=== PATIENT | male | born 1950 | race Caucasian/White ===

== ENCOUNTER 2024-10-10 21:59 | Inpatient (IN) ==
[~2024-10-10 21:59] MED LIST: ETOMIDATE 2 MG/ML 20 ML VIAL IV ONE; SUCCINYLCHOLINE CHLORIDE 20 MG/ML 10 ML VIAL IV ONE
[2024-10-10] MEDS: NITROGLYCERIN SL 0.4 MG/TAB TAB SL STA (22:15)
[2024-10-10 22:25] LABS: iSTAT Creatinine 1.8 mg/dl (0.6-1.3); iSTAT Hemoglobin 14.3 g/dl (14.0-18.0); iSTAT Ionized Calcium 1.19 mmol/l (1.12-1.32); iSTAT Potassium 4.1 mmol/L (3.3-5.0)
[2024-10-10] MEDS: NITROGLYCERIN SL 0.4 MG/TAB TAB ONE (22:28)
[2024-10-10 22:32] LABS: Base Excess VBG -7.4 mEq/L; HCO3 VBG 21 mmol/L; Oxygen Saturation VBG < 60.0 %; PCO2 VBG 52 mmHg (38-50); PO2 VBG 35 mmHg; pH VBG 7.21 (7.36-7.41)
--- NOTE | 2024-10-10 22:32 | Emergency Department Note ---
Impression & Plan ACS (acute coronary syndrome), Acute respiratory distress, Pulmonary edema, Leukocytosis, Acute hypoxic respiratory failure, Elevated troponin ED Provider Note HISTORY OF PRESENT ILLNESS: Patient is a 74-year-old male presenting with respiratory distress and chest pain. Patient reports they originally from [facility] and was in town visiting his grandson at [facility]. Patient reports that he started to develop substernal chest pain around 2044 this evening. He had taken 3 sublingual nitroglycerin and suddenly became very short of breath and had worsening of his chest pain and family called 911. Patient has a history of 5 vessel CABG. He is on aspirin and Plavix daily. He is currently complaining of chest pain on arrival to the ER. His saturations were in the 60s on EMS arrival, but patient did not tolerate BiPAP prehospital and started on a nonrebreather. Saturations of 60s on arrival to the ER. He was given sublingual nitro. EKG was obtained and HEART ALERT was called. ROS: as above PHYSICAL EXAM: Constitutional: Patient appears in significant distress. HENT: Head: Normocephalic and atraumatic. Eyes: EOMI, PERRL Mouth/Throat: Mucous membranes moist. Neck: Trachea midline. Neck supple. Cardiovascular: Tachycardic with regular rhythm. No murmurs, rubs or gallops. Intact distal pulses. Pulmonary/Chest: Significant respiratory distress. Conversationally dyspneic. Coarse breath sounds bilaterally with diffuse crackles. Patient saturating 65% on nonrebreather. Transition to BiPAP. Abdominal retractions noted. Abdominal: Abdomen soft, no tenderness, rebound or guarding. Musculoskeletal: No tenderness or deformity noted. +2 pitting edema bilateral lower extremities extending to the mid tibias. Skin: Warm and dry. No rash, erythema, pallor or cyanosis Psychiatric: Appropriate mood and affect for situation. Neurological: Alert and keenly responsive. CN II-XII grossly intact, moving all extremities equally and fully. MDM: - Vitals signs showed hypoxia, tachycardia and tachypnea. Patient was placed on the groundwater monitoring technician and defibrillation pads were placed, as he was noted to have a short run of ventricular tachycardia. - History obtained via EMS, given patient's respiratory distress. History as above. - Chronic conditions affecting care: HTN; CAD (S/p CABG) - Differential diagnoses include, but are not limited to: Acute coronary syndrome; pulmonary embolism; dissection; tension pneumothorax; esophageal rupture; pneumonia - Order placed for continuous cardiac monitoring. At this time, monitor showed rate of 145 bpm with normal sinus rhythm, per my interpretation. - External medical records reviewed. - EKG image interpreted by myself showed normal sinus rhythm. Rate 142 bpm. QT 266. Noted to have what looks like diffuse ischemic changes, notably with ST depressions in lead I and ST elevations in aVR. EKG is noted to have significant artifact secondary to patient's respiratory distress. - HEART alert called. Patient is still complaining of 10 out of 10 chest pain. He was given a sublingual nitro on arrival to the emergency department. Discussed case with ms access database developer, Dr. Lisa, at 22:10. He does not think this is a STEMI, but plans to come in to evaluate the patient. - Patient was transition to BiPAP on arrival immediately to the emergency department. However, he still having significant tachypnea and respiratory distress. Oxygen saturations improved from 60s to the upper 80s to low 90s. Did discuss patient's CODE STATUS with him and his who is present at bedside. They report that patient is full code and he would want to be intubated if the need arises. VBG shows respiratory acidosis with a pH of pH 7.21. - CXR image reported by myself shows pulmonary edema, per my interpretation. - Patient has started to tire out on the BiPAP given his significant abdominal retractions and respiratory distress. Discussed intubation with the patient, and he is requesting it, as he is stating he is getting very tired on the BiPAP. Rapid sequence intubation was performed using 20 mg of etomidate and 100 mg of IV succinylcholine. Please see procedure note below. - Post intubation chest x-ray image shows appropriate tube placement, per my interpretation. Patient is noted to have significant pulmonary edema and 80 mg IV Lasix ordered. Postintubation EKG image interpreted by myself showed atrial fibrillation. Noted to have profound ST depressions in leads I and II with elevations in aVR. Patient is noted to have some PVCs. - Laboratory workup interpreted by myself showed leukocytosis (WBC 23.59); stable electrolytes; CKD (Cr 1.70); elevated troponin (50.3) - Given patient's leukocytosis, procalcitonin, lactic acid and blood cultures were added to the workup. However, patient's symptoms seem more acute in etiology and less like sepsis. However, 2 g IV Rocephin ordered for empiric coverage. - Discussion was had with manager rn case about patient's case and need for admission - Hospitalist, Dr. Gil, consulted for admission post Arts And Crafts Instructor. - Patient was difficult to sedate post intubation. He required multiple propofol boluses a total of 50 mcg IV fentanyl. Patient was taken to the cardiac catheterization suite with interventional radiology and plan for admission to [facility] service in the ICU post Arts And Crafts Instructor. I have personally spent 62 minutes of critical care time in the direct management of this patient. This includes bedside care, interpretation of diagnostic studies, and testing, discussion with consultants, patient, and family members, and other required patient management activities. This 62 minutes is in excess of all separately billable procedures. PROCEDURE: Endotracheal Intubation Indication: respiratory distress. The patient was on BiPAP prior to the procedure. Suction, airway equipment, RSI drugs, respiratory equipment, and appropriate personnel were prepared prior to the initiation of the procedure. A time out was taken. Induction was performed with 20 mg etomidate. Paralysis with 100 mg IV succinylcholine. After observing the clinical benefit of the medications, the airway was easily visualized utilizing a glidescope. A 7.5 size ETT tube was placed atraumatically to 25 cm using standard technique. The cuff inflated without signs of malfunction. There were bilateral breath sounds, positive colormetric change, no gastric sounds, a good capnography waveform, and post procedure pulse oximetry was 95%. Post intubation sedation was administered using propofol. There were no complications. 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 Past Med/Surg History Problem List (Updated 10/10/24 @ 23:22 by John Lisa MD) ACS (acute coronary syndrome) Social History Smoking Status: Unknown if ever smoked Allergies Allergies Allergy/AdvReac Type Severity Reaction Status Date / Time iodine Allergy Hives Verified 10/10/24 22:22 Sulfa (Sulfonamide Allergy Hives Verified 10/10/24 22:22 Antibiotics) Home Meds Home Medications Medication Instructions Recorded Confirmed Plavix 75 mg PO DAILY 10/10/24 10/10/24 Urocit-K 15 10/10/24 aspirin 81 mg capsule 81 mg PO DAILY 10/10/24 10/10/24 atorvastatin 80 mg tablet 80 mg PO HS 10/10/24 10/10/24 famotidine 40 mg tablet 40 mg PO DAILY 10/10/24 10/10/24 folic acid 1 mg tablet 1 mg PO DAILY 10/10/24 10/10/24 furosemide 80 mg tablet (Lasix) 80 mg PO DAILY 10/10/24 10/10/24 insulin aspart U-100 100 unit/mL 15 unit subcut DAILY 10/10/24 10/10/24 (3 mL) subcutaneous pen (Novolog FlexPen U-100 Insulin aspart) insulin degludec 100 unit/mL (3 52 unit subcut DAILY 10/10/24 10/10/24 mL) subcutaneous pen (Tresiba FlexTouch U-100 insulin) isosorbide mononitrate 120 mg 120 mg PO DAILY 10/10/24 10/10/24 tablet,extended release 24 hr lisinopril 10 mg tablet 10 mg PO DAILY 10/10/24 10/10/24 magnesium oxide 400 mg PO DAILY 10/10/24 10/10/24 metoprolol succinate 100 mg 100 mg PO BID 10/10/24 10/10/24 tablet,extended release 24 hr nifedipine 60 mg tablet,extended 60 mg PO BID 10/10/24 10/10/24 release pantoprazole 40 mg tablet,delayed 40 mg PO DAILY 10/10/24 10/10/24 release tamsulosin 0.4 mg capsule 0.4 mg PO DAILY 10/10/24 10/10/24 Results & Data (ED) Vital Signs Vital Signs - 24 hr 10/10/24 22:01 10/10/24 22:03 10/10/24 22:09 Temperature Temperature Source Pulse Rate 129 H Pulse Rate [Finger] Pulse Rate from SpO2 Sensor Pulse Rhythm Pulse Rhythm [Finger] Pulse Strength Pulse Strength [Finger] Respiratory Rate Respiratory Effort / Characteristics Spontaneous Accessory Muscle Use Short of Breath Respiratory Pattern Tachypnea Blood Pressure 135/99 Blood Pressure [Right Arm] Blood Pressure Mean 116 Blood Pressure Mean [Right Arm] Blood Pressure Position Blood Pressure Position [Right Arm] Pulse Oximetry Oxygen Delivery Method BiPAP Sepsis Recent Fever Within 48 Hours Sepsis New/Unexplained Change in Mental Status Sepsis Action Taken by Nursing End-Tidal CO2 10/10/24 22:09 10/10/24 22:09 10/10/24 22:09 Temperature 35.7 C L Temperature Source Axillary Pulse Rate 128 H Pulse Rate [Finger] 134 H Pulse Rate from SpO2 Sensor Pulse Rhythm Regular Pulse Rhythm [Finger] Regular Pulse Strength Normal Pulse Strength [Finger] Normal Respiratory Rate 41 H 44 H Respiratory Effort / Characteristics Spontaneous Accessory Muscle Use Accessory Muscle Use Respiratory Pattern Tachypnea Blood Pressure 131/93 Blood Pressure [Right Arm] 131/93 Blood Pressure Mean 105 Blood Pressure Mean [Right Arm] 105 Blood Pressure Position Lying Blood Pressure Position [Right Arm] Lying Pulse Oximetry 86 L 88 L Oxygen Delivery Method BiPAP BiPAP BiPAP Sepsis Recent Fever Within 48 Hours No Sepsis New/Unexplained Change in Mental Status No Sepsis Action Taken by Nursing Physician Notified End-Tidal CO2 10/10/24 22:09 10/10/24 22:14 10/10/24 22:16 Temperature Temperature Source Pulse Rate 142 H 149 H 126 H Pulse Rate [Finger] Pulse Rate from SpO2 Sensor 141 H Pulse Rhythm Regular Pulse Rhythm [Finger] Pulse Strength Pulse Strength [Finger] Respiratory Rate 22 45 H Respiratory Effort / Characteristics Respiratory Pattern Blood Pressure Blood Pressure [Right Arm] Blood Pressure Mean Blood Pressure Mean [Right Arm] Blood Pressure Position Blood Pressure Position [Right Arm] Pulse Oximetry 85 L 91 Oxygen Delivery Method BiPAP Sepsis Recent Fever Within 48 Hours Sepsis New/Unexplained Change in Mental Status Sepsis Action Taken by Nursing End-Tidal CO2 10/10/24 22:16 10/10/24 22:16 10/10/24 22:21 Temperature Temperature Source Pulse Rate 128 H Pulse Rate [Finger] Pulse Rate from SpO2 Sensor 133 H Pulse Rhythm Pulse Rhythm [Finger] Pulse Strength Pulse Strength [Finger] Respiratory Rate 40 H Respiratory Effort / Characteristics Respiratory Pattern Blood Pressure 131/93 131/93 Blood Pressure [Right Arm] Blood Pressure Mean 96 96 Blood Pressure Mean [Right Arm] Blood Pressure Position Blood Pressure Position [Right Arm] Pulse Oximetry 89 L Oxygen Delivery Method Sepsis Recent Fever Within 48 Hours Sepsis New/Unexplained Change in Mental Status Sepsis Action Taken by Nursing End-Tidal CO2 10/10/24 22:23 10/10/24 22:30 10/10/24 22:33 Temperature Temperature Source Pulse Rate 114 H 134 H Pulse Rate [Finger] Pulse Rate from SpO2 Sensor 133 H Pulse Rhythm Pulse Rhythm [Finger] Pulse Strength Pulse Strength [Finger] Respiratory Rate 44 H Respiratory Effort / Characteristics Respiratory Pattern Blood Pressure 143/99 H Blood Pressure [Right Arm] Blood Pressure Mean 107 Blood Pressure Mean [Right Arm] Blood Pressure Position Blood Pressure Position [Right Arm] Pulse Oximetry 92 Oxygen Delivery Method Sepsis Recent Fever Within 48 Hours Sepsis New/Unexplained Change in Mental Status Sepsis Action Taken by Nursing End-Tidal CO2 10/10/24 22:40 10/10/24 22:40 10/10/24 22:40 Temperature Temperature Source Pulse Rate Pulse Rate [Finger] Pulse Rate from SpO2 Sensor Pulse Rhythm Pulse Rhythm [Finger] Pulse Strength Pulse Strength [Finger] Respiratory Rate Respiratory Effort / Characteristics Respiratory Pattern Blood Pressure 168/101 H 168/101 H 168/101 H Blood Pressure [Right Arm] Blood Pressure Mean 136 136 136 Blood Pressure Mean [Right Arm] Blood Pressure Position Blood Pressure Position [Right Arm] Pulse Oximetry Oxygen Delivery Method Sepsis Recent Fever Within 48 Hours Sepsis New/Unexplained Change in Mental Status Sepsis Action Taken by Nursing End-Tidal CO2 10/10/24 22:40 10/10/24 22:42 10/10/24 23:00 Temperature Temperature Source Pulse Rate 126 H Pulse Rate [Finger] Pulse Rate from SpO2 Sensor 125 H Pulse Rhythm Pulse Rhythm [Finger] Pulse Strength Pulse Strength [Finger] Respiratory Rate 19 Respiratory Effort / Characteristics Respiratory Pattern Blood Pressure 168/101 H 120/77 Blood Pressure [Right Arm] Blood Pressure Mean 136 95 Blood Pressure Mean [Right Arm] Blood Pressure Position Blood Pressure Position [Right Arm] Pulse Oximetry 94 Oxygen Delivery Method Sepsis Recent Fever Within 48 Hours Sepsis New/Unexplained Change in Mental Status Sepsis Action Taken by Nursing End-Tidal CO2 10/10/24 23:00 10/10/24 23:00 Temperature Temperature Source Pulse Rate 117 H Pulse Rate [Finger] Pulse Rate from SpO2 Sensor 121 H Pulse Rhythm Pulse Rhythm [Finger] Pulse Strength Pulse Strength [Finger] Respiratory Rate 30 H Respiratory Effort / Characteristics Respiratory Pattern Blood Pressure 120/77 Blood Pressure [Right Arm] Blood Pressure Mean 95 Blood Pressure Mean [Right Arm] Blood Pressure Position Blood Pressure Position [Right Arm] Pulse Oximetry 98 Oxygen Delivery Method Sepsis Recent Fever Within 48 Hours Sepsis New/Unexplained Change in Mental Status Sepsis Action Taken by Nursing End-Tidal CO2 26 Laboratory Data 10/10/24 22:06 10/10/24 22:06 Lab Results 10/10/24 10/10/24 Range/Units 22:06 22:14 WBC 23.59 H (4.8-10.8) K/ul RBC 4.51 L (4.70-6.10) M/uL Hgb 13.1 L (14.0-18.0) g/dl POC Hgb 14.3 (14.0-18.0) g/dl Hct 41.3 L (42.0-52.0) % POC Hct 42 (42-52) % MCV 91.6 (80.0-100.0) fL MCH 29.0 (25.0-34.0) pg MCHC 31.7 L (32.0-36.0) g/dL RDW Std Deviation 51.4 H (36.4-46.3) fL RDW Coeff of Jose 15.8 H (11.5-14.5) % Plt Count 285 (130-400) K/uL MPV 11.0 (9.4-12.4) fL Immature Gran % (Auto) 1.1 % Neut % (Auto) 64.6 % Lymph % (Auto) 22.1 % [place] % (Auto) 7.4 % Eos % (Auto) 4.1 % Baso % (Auto) 0.7 % Neut # (Auto) 15.26 H (1.40-6.50) K/uL Lymph # (Auto) 5.21 H (1.20-3.40) K/uL [place] # (Auto) 1.74 H (0.11-0.59) K/uL Eos # (Auto) 0.96 H (0.00-0.50) K/uL Baso # (Auto) 0.16 (0.00-0.20) K/uL Immature Gran # (Auto) 0.26 H (0.01-0.20) K/uL VBG pH 7.21 L (7.36-7.41) VBG pCO2 52 H (38-50) mmHg VBG pO2 35 mmHg VBG HCO3 21 mmol/L VBG O2 Saturation < 60.0 % VBG Base Excess -7.4 mEq/L POC Sodium 145 H (135-144) mmol/L Sodium 141 (136-145) mmol/L POC Potassium 4.1 (3.3-5.0) mmol/L Potassium 4.0 (3.5-5.1) mmol/L POC Chloride 110 (101-112) mmol/L Chloride 108 H (98-107) mmol/L Carbon Dioxide 22 (21-32) mmol/L POC Total CO2 20 L (24-31) mmol/L Anion Gap 11 (3-11) POC Anion Gap 20.0 (16-25) mmol/L POC BUN 45 H (7-18) mg/dl BUN 45 H (6-23) mg/dl Creatinine 1.70 H (0.6-1.4) mg/dl POC Creatinine 1.8 H (0.6-1.3) mg/dl Est Cr Clr Drug Dosing 44.3 ml/min eGFR 41.26 BUN/Creatinine Ratio 26.5 H (10-20) Glucose 216 H (70-99(Fasting)) mg/dl POC Glucose (other) 219 H (70-99) mg/dl Calcium 9.1 (8.6-10.3) mg/dl POC Ioniz Calcium Codey 1.19 (1.12-1.32) mmol/l Magnesium 1.9 (1.7-2.4) mg/dl Total Bilirubin 1.1 H (0.2-1.0) mg/dl AST 23 (13-39) U/L ALT 27 (7-52) U/L Alkaline Phosphatase 148 H (34-104) U/L Troponin I High Sens 50.3 H* (0-20) pg/ml Total Protein 8.9 H (6.0-8.3) gm/dl Albumin 4.5 (3.4-5.0) gm/dl Globulin 4.4 H (2.5-4.0) gm/dl Albumin/Globulin Ratio 1.0 (0.9-2) Lipase 44 (11-82) U/L Administered Medications Propofol (Diprivan) 1,000 mg in 100 mls @ 11.436 mls/hr IV .[id number] [facility]; Protocol Stop: 10/13/24 22:59 Last Titration: 10/10/24 23:02 Dose: 25 mcg/kg/min, 14.3 mls/hr Documented By: Titration: 10/10/24 22:46 Dose: 15 mcg/kg/min, 8.6 mls/hr Documented By: Admin: 10/10/24 22:42 Dose: 5 mcg/kg/min, 2.9 mls/hr Documented By: KALPANA Co-signed By: VONNIE Propofol (Propofol Bolus From Bag) 20 mg IV Q5M PRN PRN Reason: Sedation Stop: 10/13/24 22:54 Last Admin: 10/10/24 23:06 Dose: 20 mg Documented By: KALPANA Co-signed By: VONNIE Admin: 10/10/24 22:58 Dose: 20 mg Documented By: PAG Co-signed By: VONNIE Discontinued Medications Etomidate (Etomidate 2 Mg/Ml 20 Ml Vial) 20 mg IV ONCE ONE Stop: 10/10/24 22:43 Last Admin: 10/10/24 22:43 Dose: 20 mg Documented By: KALPANA Fentanyl Citrate (Fentanyl Citrate Pf 100 Mcg/2 Ml Vial) Confirm Administered Dose 100 mcg .ROUTE .STK-MED ONE Stop: 10/10/24 22:37 Last Increment: 10/10/24 23:07 Dose: 25 mcg Documented By: KALPANA Increment: 10/10/24 23:05 Dose: 25 mcg Documented By: KALPANA Furosemide (Furosemide 40 Mg/4 Ml Vial) 80 mg IV ONE ONE Stop: 10/10/24 22:56 Last Admin: 10/10/24 22:55 Dose: 80 mg Documented By: KALPANA Nitroglycerin (Nitroglycerin Sl 0.4 Mg/Tab Tab) Confirm Administered Dose 0.4 mg .ROUTE .STK-MED ONE Stop: 10/10/24 22:14 Last Admin: 10/10/24 22:28 Dose: Not Given Documented By: KALPANA Nitroglycerin (Nitroglycerin Sl 0.4 Mg/Tab Tab) 0.4 mg SL NOW STA Stop: 10/10/24 22:15 Last Admin: 10/10/24 22:15 Dose: 0.4 mg Documented By: KALPANA Succinylcholine Chloride (Succinylcholine Chloride 20 Mg/Ml 10 Ml Vial) 100 mg IV ONCE ONE Stop: 10/10/24 22:45 Last Admin: 10/10/24 22:45 Dose: 100 mg Documented By: KALPANA Co-signed By: VONNIE Discharge Plan Visit Data Chief Complaint: Respiratory Distress Stated Complaint: RESP. DISTRESS ED Provider: Ellie Lovelace Discharge Problem: ACS (acute coronary syndrome), Acute respiratory distress, Pulmonary edema, Leukocytosis, Acute hypoxic respiratory failure, Elevated troponin Forms Stand Alone Forms: [facility] Prescriptions Prescriptions: No Action atorvastatin 80 mg Tablet 80 mg PO HS famotidine 40 mg Tablet 40 mg PO DAILY metoprolol succinate 100 mg Tablet Extended Release 24 Hr 100 mg PO BID isosorbide mononitrate 120 mg Tablet Extended Release 24 Hr 120 mg PO DAILY tamsulosin 0.4 mg Capsule 0.4 mg PO DAILY furosemide [Lasix] 80 mg Tablet 80 mg PO DAILY pantoprazole 40 mg Tablet,Delayed Release (Dr/Ec) 40 mg PO DAILY lisinopril 10 mg Tablet 10 mg PO DAILY folic acid 1 mg Tablet 1 mg PO DAILY nifedipine 60 mg Tablet Extended Release 60 mg PO BID insulin aspart U-100 [Novolog FlexPen U-100 Insulin] 100 unit/mL (3 mL) Insulin Pen 15 unit SUBCUT DAILY insulin degludec [Tresiba FlexTouch U-100] 100 unit/mL (3 mL) Insulin Pen 52 unit SUBCUT DAILY magnesium oxide 400 mg magnesium Tablet 400 mg PO DAILY aspirin 81 mg Capsule 81 mg PO DAILY Plavix 75 mg PO DAILY Urocit-K 15 Referrals Referrals: THO MARTIN [Other]
[2024-10-10 22:36] LABS: Hematocrit (blood only) 41.3 % (42.0-52.0); Hemoglobin 13.1 g/dl (14.0-18.0); Mean Corpuscular Hgb Conc 31.7 g/dL (32.0-36.0); Mean Corpuscular Volume 91.6 fL (80.0-100.0); Platelet Count 285 K/uL (130-400); RDW Coefficient of Variation 15.8 % (11.5-14.5); RDW Standard Deviation 51.4 fL (36.4-46.3); Red Blood Count 4.51 M/uL (4.70-6.10); White Blood Count 23.59 K/ul (4.8-10.8)
[2024-10-10] MEDS: propofoL 1,000 MG/100 ML VIAL IV SCH (22:42)
[2024-10-10] MEDS: ETOMIDATE 2 MG/ML 20 ML VIAL IV ONE (22:43)
[2024-10-10] MEDS: SUCCINYLCHOLINE CHLORIDE 20 MG/ML 10 ML VIAL IV ONE (22:45)
[2024-10-10 22:52] LABS: Basophils # (auto) 0.16 K/uL (0.00-0.20); Basophils % (auto) 0.7 %; Eosinophils # (auto) 0.96 K/uL (0.00-0.50); Eosinophils % (auto) 4.1 %; Immature Granulocytes # (auto) 0.26 K/uL (0.01-0.20); Immature Granulocytes % (auto) 1.1 %; Lymphocytes # (auto) 5.21 K/uL (1.20-3.40); Lymphocytes % (auto) 22.1 %; Monocytes # (auto) 1.74 K/uL (0.11-0.59); Monocytes % (auto) 7.4 %; Neutrophils # (auto) 15.26 K/uL (1.40-6.50); Neutrophils % (auto) 64.6 %
[2024-10-10 22:53] LABS: Albumin Level 4.5 gm/dl (3.4-5.0); BUN Creatinine Ratio 26.5 (10-20); Bilirubin,Total 1.1 mg/dl (0.2-1.0); Calcium 9.1 mg/dl (8.6-10.3); Creatinine Clr Calc Pharmacy 44.3 ml/min; Globulin 4.4 gm/dl (2.5-4.0); Magnesium 1.9 mg/dl (1.7-2.4); Total Protein 8.9 gm/dl (6.0-8.3)
[2024-10-10] MEDS: FUROSEMIDE 40 MG/4 ML VIAL IV ONE (22:55)
[2024-10-10] MEDS: PROPOFOL BOLUS FROM BAG IV PRN (22:58)
[2024-10-10 23:04] LABS: Troponin I High Sensitivity 50.3 pg/ml (0-20)
[2024-10-10] MEDS: fentaNYL citrate PF 100 MCG/2 ML VIAL ONE ×2 (23:05→23:58)
--- NOTE | 2024-10-10 23:11 | Pre Anesthesia Assessment ---
Date of Service October 10, 2024 Pre Sedation Assessment Vital Signs Temp Pulse Pulse Resp BP BP Pulse Ox 10/10/24 23:00 117 H 30 H 98 10/10/24 23:00 120/77 10/10/24 23:00 120/77 10/10/24 22:42 126 H 19 94 10/10/24 22:40 168/101 H 10/10/24 22:40 168/101 H 10/10/24 22:40 168/101 H 10/10/24 22:40 168/101 H 10/10/24 22:33 134 H 44 H 92 10/10/24 22:30 143/99 H 10/10/24 22:23 114 H 10/10/24 22:21 128 H 40 H 89 L 10/10/24 22:16 131/93 10/10/24 22:16 131/93 10/10/24 22:16 126 H 10/10/24 22:14 149 H 45 H 91 10/10/24 22:09 142 H 22 85 L 10/10/24 22:09 134 H 44 H 131/93 88 L 10/10/24 22:09 10/10/24 22:09 96.3 F L 128 H 41 H 131/93 86 L 10/10/24 22:09 10/10/24 22:03 129 H 10/10/24 22:01 135/99 O2 Del Method 10/10/24 23:00 10/10/24 23:00 10/10/24 23:00 10/10/24 22:42 10/10/24 22:40 10/10/24 22:40 10/10/24 22:40 10/10/24 22:40 10/10/24 22:33 10/10/24 22:30 10/10/24 22:23 10/10/24 22:21 10/10/24 22:16 10/10/24 22:16 10/10/24 22:16 10/10/24 22:14 BiPAP 10/10/24 22:09 10/10/24 22:09 BiPAP 10/10/24 22:09 BiPAP 10/10/24 22:09 BiPAP 10/10/24 22:09 BiPAP 10/10/24 22:03 10/10/24 22:01 Cardiovascular + tachycardic and + irregularly irregular Respiratory + respiratory distress Pre-Sedation Airway Assessment Smoking Status: Unknown if ever smoked Hx Difficult Intubation: No Short, Thick Neck: No Thyromental Distance: > or= 3.5 Finger Breadths Oral Cavity: + Dental Abnormalities Mallampati Class: III ASA: ASA4 Procedure Planning Contraindications for Sedation: none Current Medications Reviewed: Yes Notes The planned sedation has been discussed with the patient. Informed Consent was obtained. I have identified the patient, determined the appropriateness of sedation and have assessed the patient immediately prior to the procedure. All medicine(s) and interventions are by my order.
--- NOTE | 2024-10-10 23:18 | Cardiology Consultation ---
Date of Consultation October 10, 2024 Assessment & Plan (1) ACS (acute coronary syndrome): Presentation concerning for high risk ACS and recommend proceeding with urgent cardiac catheterization and possible PCI. Discussed risks, benefits, alternatives of procedure with his family and they are willing to proceed. Further recommendations pending findings of coronary angiography. History of Present Illness History of Present Illness Mr. Gonzalez is a 74-year-old man here with acute chest pain, respiratory distress and ECG concerning for ACS. Patient seen emergently in the ED after heart alert activated. Patient lives in [facility], here today with his visiting his grandson ([employer] student). Per his history of coronary artery disease post 5 vessel CABG maybe 20 years ago. Also underwent valve replacement redo sternotomy around 7 years ago. Other history includes type 2 diabetes, hypertension, BPH. Chest pain began acutely this evening around 9 PM. Took 3 sublingual nitro without improvement before calling EMS. While awaiting EMS chest pain worsened, 10 out of 10 and became progressively more short of breath. In ED in respiratory distress, placed on BiPAP before eventually intubated. Chest x-ray showed diffuse pulmonary edema. ECG with A-fib with RVR, frequent PVCs, lateral ST depressions, no ST elevation. Allergies Allergy/AdvReac Type Severity Reaction Status Date / Time iodine Allergy Hives Verified 10/10/24 22:22 Sulfa (Sulfonamide Allergy Hives Verified 10/10/24 22:22 Antibiotics) Home Medications Medication Instructions Recorded Confirmed Type Plavix 75 mg PO DAILY 10/10/24 10/10/24 History Urocit-K 15 10/10/24 History aspirin 81 mg capsule 81 mg PO DAILY 10/10/24 10/10/24 History atorvastatin 80 mg tablet 80 mg PO HS 10/10/24 10/10/24 History famotidine 40 mg tablet 40 mg PO DAILY 10/10/24 10/10/24 History folic acid 1 mg tablet 1 mg PO DAILY 10/10/24 10/10/24 History furosemide 80 mg tablet (Lasix) 80 mg PO DAILY 10/10/24 10/10/24 History insulin aspart U-100 100 unit/mL 15 unit subcut DAILY 10/10/24 10/10/24 History (3 mL) subcutaneous pen (Novolog FlexPen U-100 Insulin aspart) insulin degludec 100 unit/mL (3 52 unit subcut DAILY 10/10/24 10/10/24 History mL) subcutaneous pen (Tresiba FlexTouch U-100 insulin) isosorbide mononitrate 120 mg 120 mg PO DAILY 10/10/24 10/10/24 History tablet,extended release 24 hr lisinopril 10 mg tablet 10 mg PO DAILY 10/10/24 10/10/24 History magnesium oxide 400 mg PO DAILY 10/10/24 10/10/24 History metoprolol succinate 100 mg 100 mg PO BID 10/10/24 10/10/24 History tablet,extended release 24 hr nifedipine 60 mg tablet,extended 60 mg PO BID 10/10/24 10/10/24 History release pantoprazole 40 mg tablet,delayed 40 mg PO DAILY 10/10/24 10/10/24 History release tamsulosin 0.4 mg capsule 0.4 mg PO DAILY 10/10/24 10/10/24 History Patient History Social History Smoking Status: Unknown if ever smoked Review of Systems Review of Systems: Unobtainable due to endotracheal tube Physical Exam Constitutional: no acute distress Eyes: + anicteric sclerae Respiratory: + labored breathing Auscultation: + c rackles Cardiovascular: Rate/Rhythm: + tachycardic and + irregularly irregular Extremities: + edema Gastrointestinal (Abdomen): Percussion/Palpation: abdomen soft Skin: no rashes, warm and dry Results & Data Vital Signs (Past 12 Hours) Vital Signs Temp Pulse Pulse Resp BP BP Pulse Ox 10/10/24 23:00 117 H 30 H 98 10/10/24 23:00 120/77 10/10/24 23:00 120/77 10/10/24 22:42 126 H 19 94 10/10/24 22:40 168/101 H 10/10/24 22:40 168/101 H 10/10/24 22:40 168/101 H 10/10/24 22:40 168/101 H 10/10/24 22:33 134 H 44 H 92 10/10/24 22:30 143/99 H 10/10/24 22:23 114 H 10/10/24 22:21 128 H 40 H 89 L 10/10/24 22:16 131/93 10/10/24 22:16 131/93 10/10/24 22:16 126 H 10/10/24 22:14 149 H 45 H 91 10/10/24 22:09 142 H 22 85 L 10/10/24 22:09 134 H 44 H 131/93 88 L 10/10/24 22:09 10/10/24 22:09 96.3 F L 128 H 41 H 131/93 86 L 10/10/24 22:09 10/10/24 22:03 129 H 10/10/24 22:01 135/99 O2 Del Method 10/10/24 23:00 10/10/24 23:00 10/10/24 23:00 10/10/24 22:42 10/10/24 22:40 10/10/24 22:40 10/10/24 22:40 10/10/24 22:40 10/10/24 22:33 10/10/24 22:30 10/10/24 22:23 10/10/24 22:21 10/10/24 22:16 10/10/24 22:16 10/10/24 22:16 10/10/24 22:14 BiPAP 10/10/24 22:09 10/10/24 22:09 BiPAP 10/10/24 22:09 BiPAP 10/10/24 22:09 BiPAP 10/10/24 22:09 BiPAP 10/10/24 22:03 10/10/24 22:01 PG Care Time/CCT Total # of Minutes Spent Total Time Spent with Patient: Total time spent is greater than 50% in coordination of care (as documented) at patient's floor/unit and/or counseling patient: Coding Level of Care Code 39944 INT INP/OBS CARE 2/55MIN Diagnoses ACS (acute coronary syndrome) I24.9
[2024-10-10] MEDS: NITROGLYCERIN/D5W 100MCG/ML 20ML SYR ONE (23:21)
[2024-10-10 23:22] LABS: INR 1.1 (0.9-1.1); Prothrombin Time 11.9 Seconds (9.0-12.0)
[2024-10-10] MEDS: HEPARIN (PORCINE) 1000 UNIT/ML 10 ML (CATH LAB USE ONLY) ONE (23:56)
[2024-10-10] MEDS: IODIXANOL (VISIPAQUE) 320 MG/ML 100ML IV ONE (23:56)
[2024-10-10] MEDS: OPTIRAY 350 ONE (23:57)
[2024-10-10] MEDS: MIDAZOLAM HCL 1 MG/ML 2ML VIAL ONE (23:58)
[2024-10-11] MEDS ORDERED: STAT IV Infusion **Titration per Protocol STA (00:03)
--- NOTE | 2024-10-11 00:15 | Post Anesthesia Assessment ---
Date of Service October 11, 2024 Post Sedation Assessment Vital Signs Temp Pulse Pulse Resp BP BP Pulse Ox 10/10/24 23:39 138 H 40 H 103/84 92 10/10/24 23:02 103/71 10/10/24 23:02 103/71 10/10/24 23:02 103/71 10/10/24 23:00 117 H 30 H 98 10/10/24 23:00 120/77 10/10/24 23:00 120/77 10/10/24 22:42 126 H 19 94 10/10/24 22:40 168/101 H 10/10/24 22:40 168/101 H 10/10/24 22:40 168/101 H 10/10/24 22:40 168/101 H 10/10/24 22:33 134 H 44 H 92 10/10/24 22:30 143/99 H 10/10/24 22:23 114 H 10/10/24 22:21 128 H 40 H 89 L 10/10/24 22:16 131/93 10/10/24 22:16 131/93 10/10/24 22:16 126 H 10/10/24 22:14 149 H 45 H 91 10/10/24 22:09 142 H 22 85 L 10/10/24 22:09 134 H 44 H 131/93 88 L 10/10/24 22:09 10/10/24 22:09 96.3 F L 128 H 41 H 131/93 86 L 10/10/24 22:09 10/10/24 22:03 129 H 10/10/24 22:01 135/99 O2 Del Method 10/10/24 23:39 10/10/24 23:02 10/10/24 23:02 10/10/24 23:02 10/10/24 23:00 10/10/24 23:00 10/10/24 23:00 10/10/24 22:42 10/10/24 22:40 10/10/24 22:40 10/10/24 22:40 10/10/24 22:40 10/10/24 22:33 10/10/24 22:30 10/10/24 22:23 10/10/24 22:21 10/10/24 22:16 10/10/24 22:16 10/10/24 22:16 10/10/24 22:14 BiPAP 10/10/24 22:09 10/10/24 22:09 BiPAP 10/10/24 22:09 BiPAP 10/10/24 22:09 BiPAP 10/10/24 22:09 BiPAP 10/10/24 22:03 10/10/24 22:01 Recovery Score Activity: Moves 4 extremities Circulation: +/-20% PreAnes Value Consciousness: Arouseable (by name) Oxygen Saturation: O2 needed for >90% Discharge Sedation Level of Care: Higher Level of Care Post Sedation Plan On clinical assessment, the patient appears to have tolerated the sedation without complications. Patient is recovering as anticipated. Patient will continue to be monitored by nursing and may be discharged when sedation discharge criteria are met per below protocol. Upon Completions of procedure up to 15 minutes continue every 5 minute vital signs and the P.A.R. score; then discharge to a Phase I or Fast Track to Phase II per the following guidelines: * Discharge Patient to appropriate Phase II area if PAR is 8 or greater or return to pre- procedure baseline. The post - procedure orders will be as directed. * If PAR score is less than 8 or not return to pre-procedure baseline then patient will follow Phase I monitoring till PAR is reached for Phase II. The Phase I may be done in procedure room or may call to secure a Phase I area. * If naloxone or flumazenil are used for reversal, hold in Phase I for continued monitoring from when last reversal dose was given for a minimum of 60 minutes or longer pending the nurse and/or physician discretion of patient condition before discharge to Phase II. Please call the Sedation Physician to re-evaluate and complete post-note for discharge to Phase II area.
--- NOTE | 2024-10-11 00:20 | XRay Report ---
Exam(s): XR CXR 1 VIEW EXAM: XR Chest, 1 View CLINICAL HISTORY: Reason for exam: respiratory distress. TECHNIQUE: Frontal view of the chest. COMPARISON: No relevant prior studies available. FINDINGS: Lungs: There are extensive bilateral infiltrates.. Pleural space: There is a small left pleural effusion.. No pneumothorax. Heart: The patient is status post midline sternotomy. The heart is top normal in size.. Mediastinum: There is mild uncoiling of thoracic aorta.. Bones/joints: There are degenerative changes in the spine.. IMPRESSION: There are extensive bilateral infiltrates with a small left pleural effusion.. Electronically signed by: Reed Longoria MD 10/11/24 00:19 AM
--- NOTE | 2024-10-11 00:22 | XRay Report ---
Exam(s): XR CXR 1 VIEW EXAM: XR Chest, 1 View CLINICAL HISTORY: Reason for exam: Post Intubation. TECHNIQUE: Frontal view of the chest. COMPARISON: Earlier the same date. FINDINGS: An endotracheal tube is noted with its tip 8 cm above the level of the blossom. A nasogastric tube is noted to cross the diaphragm. Its tip is not visualized on this exam Lungs: There are extensive bilateral infiltrates.. Pleural space: There is a small left pleural effusion.. No pneumothorax. Heart: The patient is status post midline sternotomy. The heart is top normal in size.. Mediastinum: There is mild uncoiling of thoracic aorta.. Bones/joints: There are degenerative changes in the spine.. IMPRESSION: There are extensive bilateral infiltrates with a small left pleural effusion. This appears similar to previous exam. Electronically signed by: Reed Longoria MD 10/11/24 00:21 AM
[2024-10-11] MEDS: fentaNYL citrate 2,500 MCG/250 ML BAG IV SCH (00:24)
--- NOTE | 2024-10-11 00:30 | Cardiac Catheterization ---
[facility] Data: [address] [employer] Cardiac Status Clinical evaluation leading to the procedure CAD Presenation: Non STEMI Anginal Classification: CCS IV Heart Failure: NYHA Class: CCS IV Diagnostic Physicians Name: John Lisa MD Closure Device Recommendations: Medical Therapy and/or Counseling Cardiac Cath Procedure Full Procedure Date October 11, 2024 Pre-Procedure Diagnosis Pre-Procedure Diagnosis: Non STEMI and CHF AUC Score AUC Score: 8 Post-Procedure Diagnosis Post-Procedure Diagnosis: Severe CAD Procedure(s) Performed Procedure(s) Performed: Coronary Angiography, Bypass Graft Angiography and Femoral Artery Angiography Physician Office Secretary John Lisa MD [place] Waitress/Waiter(s) Kash Estimated Blood Loss Estimated Blood Loss: 15 Medication(s) Medication(s): Fentanyl, Heparin, Lidocaine 1%, Nicardipine, Nitroglycerin and Versed Summary of Findings Indication: ACS, acute heart failure. History of CAD post reported remote CABG. Access: 6 Fr right [employer] under ultrasound guidance Catheters: JL 3.5, JR4, DESHAWN Findings: LM -normal caliber, calcified, 90% distal LAD -100% proximal chronic total occlusion. Gives off very small D1 Circumflex -100% proximal chronic total occlusion. Gives of very small high OM1 RCA -dominant, small to medium caliber, heavily calcified, 80% proximal, 90% earlymid, 100% mid chronic total occlusion. MARTINEZ to LAD and D1 diagonalwidely patent, LAD after anastomosis small with diffuse disease as wraps around apex. Retrofills back to earlymid LAD. Y graft from MARTINEZ to OM widely patent Arterial aorta to RV branchwidely patent. Retrofills to mid RCA. Distal RCA 100% occluded (unsure if acute versus chronic). Arterial Closure: Mynx Summary: 1. Widely patent MARTINEZ to LAD with jump to diagonal. Y graft off MARTINEZ to OM widely patent. Graft to RV branch widely patent. 2. Chronic severe multivessel coronary artery disease 90% distal left main 100% proximal LAD 100% proximal circumflex 100% mid RCA. Distal RCA retrofills via graft to RV branch with 100% occlusion prior to PDA. Recommendations: Grafts are widely patent and no clear acute high risk disease to explain patient's presentation. Distal RCA after graft anastomosis occluded. Suspect chronic but cant rule out acute. Either way would recommend medical management. Acute heart failure potentially triggered by new AF with RVR. Converted to sinus rhythm during case. Start heparin infusion overnight in case acute distal RCA or branch vessel disease. Trend troponin, check echo in the morning. Restart home DAPT with aspirin, clopidogrel Obtain home cardiology records Hemodynamics Rest Ao:: 112/102/81 Final Ao: 154/57/93 LV: -- Recommendations Recommendations: Medical Therapy and/or Counseling Specimens Specimens: None Radiation Exposure (mGy) 1444 Contrast (mls) 75 Anesthesia Moderate [id number] Procedural Complication(s) None Disposition ICU I attest to the content of the Intraoperative Record and any orders documented therein. Any exceptions are noted below. [facility] Card Cath Procedure Codes Cardiac Catheterization Procedure 1: Cardiovascular Cath Procedures: 10180 Coronaries and Grafts/IM (venous & atrial) & [facility] Therapeutic Services & Ancillary Procedure 1: Cardiovascular Tx and Anc Procedures: 37697 Ultrasonic Guidance Vascular Access Moderate Sedation Procedure 1: Sedation/Anesthesia: 55678 Mod Sedation by the same physician;Init15 Min Child Age 5 & Up PG Care Time/CCT Total # of Minutes Spent Total Time Spent with Patient: Total time spent is greater than 50% in coordination of care (as documented) at patient's floor/unit and/or counseling patient:
--- NOTE | 2024-10-11 00:32 | Critical Care Consultation ---
Date of Consultation October 10, 2024 Assessment & Plan (1) Hypoxic respiratory failure: (2) MILLI (acute kidney injury): (3) Paroxysmal A-fib: (4) CAD (coronary artery disease): (5) DMII (diabetes mellitus, type 2): Plan Reason Critically Ill: 74 YOM presents with acute onset of chest pain was found to be hypoxic tachypneic tachycardic, was urgently intubated in ER and taken urgently to angio suite for cardiac angiography, which did not reveal acute thrombus for intervention. Patient now to the ICU intubated and sedated. Neuro - Sedation for mechanical ventilation CAM ICU: FATOUMATA - Propofol and Fentanyl for sedation goal RAFAEL -1 and ventilator synchrony - Restraints while intubated Cardiac - chest pain, PAF, HX: CAD, Bioprosthetic AVR - Cardiac angiography without acute occlusive disease- no intervention - EF reported 30-35% during angio- will obtain full ECHO in am to eval further as well as AVR - Diuresing from 80mg IV Lasix earlier, some mild improvement in bilateral patchy opacities - CTA chest stat eval for PE - No pericardial effusion on cath - Patient had some afib on arrival with PVCs reported- Possible that he is intolerant of afib especially at rapid rate- follow - he is currently in NSR with PVCs on arrival- ECG without STEMI on arrival to ICU - heparin infusion with likely bridge until further evaluated with monitoring and ECHO - for his bioprosthetic AVR- ECHO in am - trend troponin - RIGHT FEMORAL Access site- post arterial access precautions as ordered by interventionalist. Respiratory - Acute hypoxic respiratory failure, abnormal CXR - - bilateral patchy infiltrates likely cardiac related - continue with positive pressure ventilation and further diuresing in AM if needed- no hemoptysis and no blood in ETT doubt at this time DAH- further eval with CTA - hypercarbia and hypoxia improved following intubation - will attempt to wean PEEP and FIo2 as able- if stable overnight SBT in morning - Eval for PE as above - ETT advanced 3cm post arrival to ICU CXR - pulmonary edema with unkown underlying lung disease- CT with GGO and interlobular thickening- consider bronchoscopy GI - No acute needs - will obtain Abd/pelvis CT scan eval right abdominal quadrant abnormality and further eval for any evidence of inciting his decline - OGT to LIWS - If remains intubated in the am - start enteral feeds RENAL/LYTES - MILLI on CKD - MILLI on CKD- at this time diurese based on pulmonary infiltrates- follow his am renal function, will have to follow closely with contrast doses - unsure of baseline but reports them following his renal function closely - ICU electrolyte protocol - ABG with mild metabolic acidosis non gap - No acute needs - Continue iniguez catheter while intubated and sedated - likely able to remove in am ENDO - DMII - Continue basal bolus insulin dosing- ICU hyperglycemic protocol HEME - ? 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 - reports Coumadin- however not on med rec and is also on ASA/Plavis - either way patient will be on heparin for PAF and further tele monitoring ID - No concern at this time for infective cause - He is afebrile, believe his elevated WBC likely stress related at this time- follow imaging, fever curve, and leukocyte count over next 12-24 hours - He has already received a dose of Rocephin prior to admission - PCT negative LINES/IV ACCESS - PIV x3, iniguez catheter, ETT, OGT Continue use of these lines DVT PROPHYLAXIS - SCDS, Heparin infusion DISPO: ICU while intubated and sedated I have personally spent 48 minutes of critical care time in the direct management of this patient. This is a life/limb threatening event. This includes time spent evaluating patient, direct bedside care, chart review, placing orders, interpretation of diagnostic studies, discussion with consultants, patient, and family members, as well as other required patient management a ctivities. This time is exclusive of all separately billable procedures, and separate from and in addition to any other critical care service time. Thank you for allowing us to participate in the care of this patient. Please refer to my attending physician's documentation for any further recommendations. History of Present Illness Reason for Consultation: hypoxic respiratory failure requiring urgent intubation, s/p cardiac cath for concern of ACS Requesting Physician: George Gil MD Attending Physician: George Gil MD History of Present Illness 74 YOM : no records in our system and patient is intubated and sedated. Information obtained in this HPI and consultation is obtained from chart review and discussion with hospitalist admitting service. Patient was brought to the ER via EMS after developing chest pain around 2044 this morning, He took sublingual NTG at home and chest pain reportedly got worse. He was reportedly hypoxic on EMS arrival and did not tolerate BiPAP en route. He continued to complain of chest pain while in the ER. Chart review shows tachypnea and tachycardia on arrival. His CXR was notable for bilateral patchy opacities. Concern was for pulmonary edema and respiratory failure and he was subsequently RSI with etomidate and succinylcholine, was given 80mg IV Lasix and heart alert was called. Patient was then taken urgently to the labor conciliator for angiography, where no acute lesion was found. Patient was then transferred to the ICU. Patient arrives to the ICU awake, overbreathing the ventilator, spont moving arms and legs. He is on no vasopressors at this time, will wean ventilator settings as able, obtain CXR re-evaluate ETT following movements. Obtain labs, and continue further work up of presentation. After discussion with , patient has been having progressive dyspnea over the past month- she reports that he went to cardiology office as well as pulmonary office and thinks he had PFTs performed. She reports that he was having increased dyspnea and could not breathe earlier and he took his NTG to assist with breathing and as he had more trouble breathing he then started having chest pain. CODE: FULL Allergies Allergy/AdvReac Type Severity Reaction Status Date / Time iodine Allergy Hives Verified 10/10/24 22:22 Sulfa (Sulfonamide Allergy Hives Verified 10/10/24 22:22 Antibiotics) Home Medications Medication Instructions Recorded Confirmed Type Plavix 75 mg PO DAILY 10/10/24 10/10/24 History Urocit-K 15 10/10/24 History aspirin 81 mg capsule 81 mg PO DAILY 10/10/24 10/10/24 History atorvastatin 80 mg tablet 80 mg PO HS 10/10/24 10/10/24 History famotidine 40 mg tablet 40 mg PO DAILY 10/10/24 10/10/24 History folic acid 1 mg tablet 1 mg PO DAILY 10/10/24 10/10/24 History furosemide 80 mg tablet (Lasix) 80 mg PO DAILY 10/10/24 10/10/24 History insulin aspart U-100 100 unit/mL 15 unit subcut DAILY 10/10/24 10/10/24 History (3 mL) subcutaneous pen (Novolog FlexPen U-100 Insulin aspart) insulin degludec 100 unit/mL (3 52 unit subcut DAILY 10/10/24 10/10/24 History mL) subcutaneous pen (Tresiba FlexTouch U-100 insulin) isosorbide mononitrate 120 mg 120 mg PO DAILY 10/10/24 10/10/24 History tablet,extended release 24 hr lisinopril 10 mg tablet 10 mg PO DAILY 10/10/24 10/10/24 History magnesium oxide 400 mg PO DAILY 10/10/24 10/10/24 History metoprolol succinate 100 mg 100 mg PO BID 10/10/24 10/10/24 History tablet,extended release 24 hr nifedipine 60 mg tablet,extended 60 mg PO BID 10/10/24 10/10/24 History release pantoprazole 40 mg tablet,delayed 40 mg PO DAILY 10/10/24 10/10/24 History release tamsulosin 0.4 mg capsule 0.4 mg PO DAILY 10/10/24 10/10/24 History Patient History Medical History (Updated 10/11/24 @ 01:06 by JARED Plasencia) DMII (diabetes mellitus, type 2) CAD (coronary artery disease) Social History Smoking Status: Unknown if ever smoked Second Hand Exposure: No; Do You Dip or Chew Tobacco: No (p-t intubated); Tobacco Cessation Education Requested by Patient: No Hx Alcohol Use: No Hx Substance Use: No Preferred Language: Latvian Communication Ability: Impaired Sizer Hand Required: No Beliefs That Will Affect Care: None Current Living Situation: Spouse Other Information That Helps Us Care for You: No (pt intubated) Feels Safe at Home: Declines to Answer Review of Systems Review of Systems: unable to be performed secondary to intubation and sedation Physical Exam Physical Exam: PHYSICAL EXAM: General: intubated and sedated Head: Normocephalic, atraumatic Neuro: Patient sedated with propofol and fentanyl, opens eyes to stimulation, moves upper and lower extremities, PEERLA Chest: equal rise and fall of the chest, abdominal breathing, asynchronous with vent, decreased in bases with scattered crackles Cardiac: Regular rate and rhythm, telemetry reviewed- NSR occasional PVCs, skin warm dry, cap refill <3 seconds, peripheral pusles +2 no JVD, pitting edema in feet to midcalf GI: obese soft, nontender to palpation,distended right upper and lower quad : iniguez to gravity draining light yellow urine Skin: no rash or erythema Results & Data Results & Data Vital Signs (Past 12 Hours) Vital Signs Temp Pulse Pulse Resp BP BP Pulse Ox 10/10/24 23:39 138 H 40 H 103/84 92 10/10/24 23:02 103/71 10/10/24 23:02 103/71 10/10/24 23:02 103/71 10/10/24 23:00 117 H 30 H 98 10/10/24 23:00 120/77 10/10/24 23:00 120/77 10/10/24 22:42 126 H 19 94 10/10/24 22:40 168/101 H 10/10/24 22:40 168/101 H 10/10/24 22:40 168/101 H 10/10/24 22:40 168/101 H 10/10/24 22:33 134 H 44 H 92 10/10/24 22:30 143/99 H 10/10/24 22:23 114 H 10/10/24 22:21 128 H 40 H 89 L 10/10/24 22:16 131/93 10/10/24 22:16 131/93 10/10/24 22:16 126 H 10/10/24 22:14 149 H 45 H 91 10/10/24 22:09 142 H 22 85 L 10/10/24 22:09 134 H 44 H 131/93 88 L 10/10/24 22:09 10/10/24 22:09 35.7 C L 128 H 41 H 131/93 86 L 10/10/24 22:09 10/10/24 22:03 129 H 10/10/24 22:01 135/99 O2 Del Method 10/10/24 23:39 10/10/24 23:02 10/10/24 23:02 10/10/24 23:02 10/10/24 23:00 10/10/24 23:00 10/10/24 23:00 10/10/24 22:42 10/10/24 22:40 10/10/24 22:40 10/10/24 22:40 10/10/24 22:40 10/10/24 22:33 10/10/24 22:30 10/10/24 22:23 10/10/24 22:21 10/10/24 22:16 10/10/24 22:16 10/10/24 22:16 10/10/24 22:14 BiPAP 10/10/24 22:09 10/10/24 22:09 BiPAP 10/10/24 22:09 BiPAP 10/10/24 22:09 BiPAP 10/10/24 22:09 BiPAP 10/10/24 22:03 10/10/24 22:01 Laboratory Results Abnormal lab results 10/10/24 10/10/24 Range/Units 22:06 22:14 WBC 23.59 H (4.8-10.8) K/ul RBC 4.51 L (4.70-6.10) M/uL Hgb 13.1 L (14.0-18.0) g/dl Hct 41.3 L (42.0-52.0) % MCHC 31.7 L (32.0-36.0) g/dL RDW Std Deviation 51.4 H (36.4-46.3) fL RDW Coeff of Jose 15.8 H (11.5-14.5) % Neut # (Auto) 15.26 H (1.40-6.50) K/uL Lymph # (Auto) 5.21 H (1.20-3.40) K/uL Lea # (Auto) 1.74 H (0.11-0.59) K/uL Eos # (Auto) 0.96 H (0.00-0.50) K/uL Immature Gran # (Auto) 0.26 H (0.01-0.20) K/uL VBG pH 7.21 L (7.36-7.41) VBG pCO2 52 H (38-50) mmHg POC Sodium 145 H (135-144) mmol/L Chloride 108 H (98-107) mmol/L POC Total CO2 20 L (24-31) mmol/L POC BUN 45 H (7-18) mg/dl BUN 45 H (6-23) mg/dl Creatinine 1.70 H (0.6-1.4) mg/dl POC Creatinine 1.8 H (0.6-1.3) mg/dl BUN/Creatinine Ratio 26.5 H (10-20) Glucose 216 H (70-99(Fasting)) mg/dl POC Glucose (other) 219 H (70-99) mg/dl Total Bilirubin 1.1 H (0.2-1.0) mg/dl Alkaline Phosphatase 148 H (34-104) U/L Troponin I High Sens 50.3 H* (0-20) pg/ml Total Protein 8.9 H (6.0-8.3) gm/dl Globulin 4.4 H (2.5-4.0) gm/dl Diagnostic Findings Chest X-Ray 10/10/24 22:13 Exam(s): XR CXR 1 VIEW EXAM: XR Chest, 1 View CLINICAL HISTORY: Reason for exam: respiratory distress. TECHNIQUE: Frontal view of the chest. COMPARISON: No relevant prior studies available. FINDINGS: Lungs: There are extensive bilateral infiltrates.. Pleural space: There is a small left pleural effusion.. No pneumothorax. Heart: The patient is status post midline sternotomy. The heart is top normal in size.. Mediastinum: There is mild uncoiling of thoracic aorta.. Bones/joints: There are degenerative changes in the spine.. IMPRESSION: There are extensive bilateral infiltrates with a small left pleural effusion.. Electronically signed by: Reed Longoria MD 10/11/24 00:19 AM Chest X-Ray 10/10/24 22:40 Exam(s): XR CXR 1 VIEW EXAM: XR Chest, 1 View CLINICAL HISTORY: Reason for exam: Post Intubation. TECHNIQUE: Frontal view of the chest. COMPARISON: Earlier the same date. FINDINGS: An endotracheal tube is noted with its tip 8 cm above the level of the blossom. A nasogastric tube is noted to cross the diaphragm. Its tip is not visualized on this exam Lungs: There are extensive bilateral infiltrates.. Pleural space: There is a small left pleural effusion.. No pneumothorax. Heart: The patient is status post midline sternotomy. The heart is top normal in size.. Mediastinum: There is mild uncoiling of thoracic aorta.. Bones/joints: There are degenerative changes in the spine.. IMPRESSION: There are extensive bilateral infiltrates with a small left pleural effusion. This appears similar to previous exam. Electronically signed by: Reed Longoria MD 10/11/24 00:21 AM Medications Administered Propofol (Diprivan) 1,000 mg in 100 mls @ 11.436 mls/hr IV .Q8H45M [facility]; Protocol Stop: 10/13/24 22:59 Last Titration: 10/10/24 23:02 Dose: 25 mcg/kg/min, 14.3 mls/hr Documented By: Titration: 10/10/24 22:46 Dose: 15 mcg/kg/min, 8.6 mls/hr Documented By: Admin: 10/10/24 22:42 Dose: 5 mcg/kg/min, 2.9 mls/hr Documented By: PAG Co-signed By: VONNIE Fentanyl Citrate (Fentanyl Citrate) 2,500 mcg in 250 mls @ 2.5 mls/hr IV .Q96H SOILA; Protocol Stop: 10/25/24 00:14 Last Admin: 10/11/24 00:24 Dose: 25 mcg/hr, 2.5 mls/hr Documented By: TMG Co-signed By: TLM Propofol (Propofol Bolus From Bag) 20 mg IV Q5M PRN PRN Reason: Sedation Stop: 10/13/24 22:54 Last Admin: 10/10/24 23:06 Dose: 20 mg Documented By: PAG Co-signed By: VONNIE Admin: 10/10/24 22:58 Dose: 20 mg Documented By: PAG Co-signed By: VONNIE Discontinued Medications Etomidate (Etomidate 2 Mg/Ml 20 Ml Vial) 20 mg IV ONCE ONE Stop: 10/10/24 22:43 Last Admin: 10/10/24 22:43 Dose: 20 mg Documented By: KALPANA Fentanyl Citrate (Fentanyl Citrate Pf 100 Mcg/2 Ml Vial) Confirm Administered Dose 100 mcg .ROUTE .STK-MED ONE Stop: 10/10/24 22:37 Last Increment: 10/10/24 23:07 Dose: 25 mcg Documented By: KALPANA Increment: 10/10/24 23:05 Dose: 25 mcg Documented By: PAG Fentanyl Citrate (Fentanyl Citrate Pf 100 Mcg/2 Ml Vial) Confirm Administered Dose 100 mcg .ROUTE .STK-MED ONE Stop: 10/10/24 23:04 Last Increment: 10/10/24 23:58 Dose: 50 mcg Documented By: SVETLANA Furosemide (Furosemide 40 Mg/4 Ml Vial) 80 mg IV ONE ONE Stop: 10/10/24 22:56 Last Admin: 10/10/24 22:55 Dose: 80 mg Documented By: PAG Heparin Sodium (Porcine) (Heparin (Porcine) 1000 Unit/Ml 10 Ml (Material Requirements Planning Manager Use Only)) Confirm Administered Dose 10,000 units .ROUTE .STK-MED ONE Stop: 10/10/24 22:37 Last Admin: 10/10/24 23:56 Dose: Not Given Documented By: [facility] Heparin Sodium/Sodium Chloride (Heparin In Nss Infusion 1000 Unit/500 Ml (2 U/Ml ) Bag) Confirm Administered Dose 3,000 units IV .STK-MED ONE Stop: 10/10/24 22:37 Last Admin: 10/10/24 23:21 Dose: 3,000 units Documented By: CECE Iodixanol (Iodixanol (Visipaque) 320 Mg/Ml 100ml) Confirm Administered Dose 1 ml IV .STK-MED ONE Stop: 10/10/24 22:37 Last Admin: 10/10/24 23:56 Dose: 75 ml Documented By: CECE Ioversol (Optiray 350) Confirm Administered Dose 1 ml .ROUTE .STK-MED ONE Stop: 10/10/24 22:37 Last Admin: 10/10/24 23:57 Dose: Not Given Documented By: CECE Midazolam HCl (Midazolam Hcl 1 Mg/Ml 2ml Vial) Confirm Administered Dose 2 mg .ROUTE .STK-MED ONE Stop: 10/10/24 22:37 Last Admin: 10/10/24 23:58 Dose: 2 mg Documented By: [facility] Nitroglycerin (Nitroglycerin Sl 0.4 Mg/Tab Tab) Confirm Administered Dose 0.4 mg .ROUTE .STK-MED ONE Stop: 10/10/24 22:14 Last Admin: 10/10/24 22:28 Dose: Not Given Documented By: PAG Nitroglycerin (Nitroglycerin Sl 0.4 Mg/Tab Tab) 0.4 mg SL NOW STA Stop: 10/10/24 22:15 Last Admin: 10/10/24 22:15 Dose: 0.4 mg Documented By: PAG Nitroglycerin/Dextrose (Nitroglycerin/D5w 100mcg/Ml 20ml Syr) Confirm Administered Dose 2,000 mcg .ROUTE .STK-MED ONE Stop: 10/10/24 22:37 Last Admin: 10/10/24 23:21 Dose: 2,000 mcg Documented By: CECE Succinylcholine Chloride (Succinylcholine Chloride 20 Mg/Ml 10 Ml Vial) 100 mg IV ONCE ONE Stop: 10/10/24 22:45 Last Admin: 10/10/24 22:45 Dose: 100 mg Documented By: KALPANA Co-signed By: VONNIE Coding Level of Care Code 64149 CRITICAL CARE 1ST 30-74M Diagnoses Hypoxic respiratory failure J96.91 MILLI (acute kidney injury) N17.9 Paroxysmal A-fib I48.0 CAD (coronary artery disease) I25.10 DMII (diabetes mellitus, type 2) E11.9
[2024-10-11] MEDS: RAPID SEQUENCE INDUCTION BAG ONE (00:57)
[2024-10-11] MEDS: PROPOFOL IV EMULSION 10 MG/ML 20 ML VIAL IV ONE (00:57)
[2024-10-11] MEDS: PROPOFOL IV EMULSION 10 MG/ML 100 ML VIAL IV ONE (00:57)
[2024-10-11] MEDS: FUROSEMIDE 40 MG/4 ML VIAL IV ONE (00:58)
[2024-10-11] MEDS: cefTRIAXone SODIUM 2,000 MG/50 ML BAG IV STA (00:58)
[2024-10-11] MEDS: STAT IV Infusion **Titration per Protocol STA (00:58)
[2024-10-11] MEDS: fentaNYL BOLUS from BAG IV PRN (00:59)
[2024-10-11 01:21] LABS: Partial Thromboplastin Time 26 Seconds (21-31)
--- NOTE | 2024-10-11 01:28 | XRay Report ---
EXAM: XR chest 1V portable CLINICAL HISTORY: Evaluation of Endotracheal tube and lung ruvalcaba. TECHNIQUE: An X-ray image of the chest is obtained in Anteroposterior (AP) projection. COMPARISON: No prior studies are available for comparison. FINDINGS: ETT was applied with its tip positioned 7.4 cm away from the blossom. NGT was applied with its tip seen just crossing the gastroesophageal junction. Another tube was noted in the left middle zone of the chest field, with its tip fairly observed in the mediastinum. Pulmonary Parenchyma: Lungs are showing bilateral, mainly central opacities (batwing sign) likely related to pulmonary edema. The underlying infection could not be ruled out. No pulmonary nodules are identified. No evidence of pleural effusion or pleural thickening. Heart and Mediastinum: The heart size is enlarged. No mediastinal widening or masses. No hilar or mediastinal lymphadenopathy. Bony Thorax: The bony thorax appears intact without fractures or deformities. Soft Tissues: Sternotomy wiers applied. Soft tissues overlying the chest wall are unremarkable. IMPRESSION: 1. The endotracheal tube was applied with its tip positioned 7.4 cm away from the blossom. 2. Nasogastric Tube was applied with its tip seen just crossing the gastroesophageal junction. 3. Another tube was noted in the left middle zone of the chest field, with its tip fairly observed in the mediastinum. 4. The lungs show bilateral, mainly central opacities (batwing sign), likely related to pulmonary edema. An underlying infection could not be ruled out. 5. Further clinical and laboratory correlation, as well as follow-up, is recommended. Electronically signed by Juan Carlos Mckoy 10-11-2024 01:26 AM
[2024-10-11 01:29] LABS: iSTAT Allen Test Pass; iSTAT Art Bld Gas pCO2 Correct 34 mmHg (35-46); iSTAT Art Bld Gas pH Corrected 7.379 (7.35-7.45); iSTAT Arterial Blood Gas HCO3 20 meg/L (19-24); iSTAT Arterial Blood Gas pCO2 35 mmHg (35-46); iSTAT Arterial Blood Gas pH 7.36 (7.35-7.45); iSTAT Arterial Blood Gas pO2 71 mmHg (80-95); iSTAT Arterial Blood Gas pO2 C 65; iSTAT Carbon Dioxide 21 mmol/L (24-31); iSTAT FiO2 60 %; iSTAT Hematocrit 33 % (42-52); iSTAT Hemoglobin 11.2 g/dl (14.0-18.0); iSTAT Potassium 4.3 mmol/L (3.3-5.0); iSTAT Sample Type Arterial; iSTAT Site L Radial; iSTAT Sodium 142 mmol/L (135-144); iSTAT SpO2 93
[2024-10-11] MEDS: OPTIRAY 320 125ml IV ONE (01:42)
--- NOTE | 2024-10-11 01:51 | History & Physical Report ---
Date of Service October 11, 2024 Assessment & Plan (1) Hypoxic respiratory failure: Plan: 74-year-old male from [facility] visiting [place] with past medical history significant for diabetes, CAD status post CABG, hypertension, GERD, BPH hyperlipidemia presents with respiratory distress and chest pain. Patient is currently status post intubation. S/p cardiac cath. 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 However with the weather improved his symptoms of shortness of breath was improving. He is also having lower EXTR edema going on for last 5 to 6 months but it is stable and he takes Lasix as per the . Patient had CABG 20 years ago and aortic valve replacement thinks with pig valve about 10 years ago. thinks patient takes Coumadin for heart problem but denies any history of A-fib. states his kidney function is monitored because of age but not sure about the kidney disease. Has back problems. Last evening as per the patient was getting very short of breath and he took nitro 3 times and because shortness of breath he started to have chest pains. And EMS was called. Per EMS his oxygen sat was 60% on arrival and patient could not tolerate BiPAP and was placed on nonrebreather mask. He was given sublingual nitro. EKG was obtained and heart alert was called. VBG showed respiratory acidosis. Chest x-ray showed pulmonary edema. As patient was not tolerating BiPAP and was tiring patient was intubated in ER. IV Lasix 80 mg were given. S/p cardiac cath and all grafts appear to be open and there is distal RCA after anastomosis possible acute versus chronic and medical management is recommended by interventional cardiology. He was was in A-fib and converted to sinus rhythm. Cardiology recommended beta-blockers when able as patient having lot of PVCs. Currently patient hemodynamically okay. Has leukocytosis, a dose of Rocephin given in the ER. Lactate is okay. Procalcitonin is negative. Initial troponin 50 [place] [address]. Hypoxic respiratory failure Status post intubation Pulmonary edema on x-ray Received IV Lasix 80mg Close monitoring ICU Will follow CTA chest Appreciate critical care help Will follow echo Non-ST elevated GA Status post emergent cardiac cath All grafts appear to be open. Intervention cardiology Recommend medical management Initial troponin 50 [place] [address] We will follow serial enzymes and repeat EKG and echo On IV heparin Continue home statin and aspirin and Plavix Cardiology consult Close monitor History of CAD status post CABG Continue home aspirin, Plavix, high-dose statin, Imdur and metoprolol succinate A-fib probably new onset Will monitor on IV heparin Diabetes Sliding scale Close monitor Plasmic pharmacy consult MILLI creatinine 1.7 No known baseline To avoid nephrotoxic agents Will monitor History of hypertension On Imdur, metoprolol succinate, nifedipine and lisinopril If renal function worsens will hold lisinopril Close monitor Hyperlipidemia On statin BPH On Flomax GERD On Protonix DVT prophylaxis On IV heparin says patient on Coumadin but not on med list. needs to verify. - Admission and Anticipated Discharge Date Admission Date: October 10, 2024 History of Present Illness Chief Complaint: Respiratory distress and chest pain Primary Care Provider: Davey Waller 74-year-old male from [facility] with past medical history significant for diabetes, CAD status post CABG, hypertension, GERD, BPH hyperlipidemia presents with respiratory distress and chest pain. Patient is currently status post intubation. S/p cardiac cath. 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 However with the weather improved his symptoms of shortness of breath was improving. He is also having lower EXTR edema going on for last 5 to 6 months but it is stable and he takes Lasix as per the . Patient had CABG 20 years ago and aortic valve replacement thinks with pig valve about 10 years ago. thinks patient takes Coumadin for heart problem but denies any history of A-fib. states his kidney function is monitored because of age but not sure about the kidney disease. Has back problems. Last evening as per the patient was getting very short of breath and he took nitro 3 times and because shortness of breath he started to have chest pains. And EMS was called. Per EMS his oxygen sat was 60% on arrival and patient could not tolerate BiPAP and was placed on nonrebreather mask. He was given sublingual nitro. EKG was obtained and heart alert was called. VBG showed respiratory acidosis. Chest x-ray showed pulmonary edema. As patient was not tolerating BiPAP and was tiring patient was intubated in ER. IV Lasix 80 mg were given. S/p cardiac cath and all grafts appear to be open and there is distal RCA after anastomosis possible acute versus chronic and medical management is recommended by interventional cardiology. He was was in A-fib and converted to sinus rhythm. Cardiology recommended beta-blockers when able as patient having lot of PVCs. Currently patient hemodynamically okay. Has leukocytosis, a dose of Rocephin given in the ER. Lactate is okay. Procalcitonin is negative. Initial troponin 50 [place] [address]. Past med history as mentioned above Past surgical history. CABG. Aortic valve replacement. Prostate surgery. Social use. No smoking. No alcohol use. Family history. Father had heart surgery. Mother had dementia. Allergies Allergy/AdvReac Type Severity Reaction Status Date / Time iodine Allergy Hives Verified 10/10/24 22:22 Sulfa (Sulfonamide Allergy Hives Verified 10/10/24 22:22 Antibiotics) Home Medications Medication Instructions Recorded Confirmed Type Plavix 75 mg PO DAILY 10/10/24 10/10/24 History Urocit-K 15 10/10/24 History aspirin 81 mg capsule 81 mg PO DAILY 10/10/24 10/10/24 History atorvastatin 80 mg tablet 80 mg PO HS 10/10/24 10/10/24 History famotidine 40 mg tablet 40 mg PO DAILY 10/10/24 10/10/24 History folic acid 1 mg tablet 1 mg PO DAILY 10/10/24 10/10/24 History furosemide 80 mg tablet (Lasix) 80 mg PO DAILY 10/10/24 10/10/24 History insulin aspart U-100 100 unit/mL 15 unit subcut DAILY 10/10/24 10/10/24 History (3 mL) subcutaneous pen (Novolog FlexPen U-100 Insulin aspart) insulin degludec 100 unit/mL (3 52 unit subcut DAILY 10/10/24 10/10/24 History mL) subcutaneous pen (Tresiba FlexTouch U-100 insulin) isosorbide mononitrate 120 mg 120 mg PO DAILY 10/10/24 10/10/24 History tablet,extended release 24 hr lisinopril 10 mg tablet 10 mg PO DAILY 10/10/24 10/10/24 History magnesium oxide 400 mg PO DAILY 10/10/24 10/10/24 History metoprolol succinate 100 mg 100 mg PO BID 10/10/24 10/10/24 History tablet,extended release 24 hr nifedipine 60 mg tablet,extended 60 mg PO BID 10/10/24 10/10/24 History release pantoprazole 40 mg tablet,delayed 40 mg PO DAILY 10/10/24 10/10/24 History release tamsulosin 0.4 mg capsule 0.4 mg PO DAILY 10/10/24 10/10/24 History Past Med/Surg History Problem List (Updated 10/11/24 @ 01:06 by JARED Plasencia) Paroxysmal A-fib MILLI (acute kidney injury) Hypoxic respiratory failure ACS (acute coronary syndrome) Medical History (Updated 10/11/24 @ 01:06 by JARED Plasencia) DMII (diabetes mellitus, type 2) CAD (coronary artery disease) Social History Smoking Status: Unknown if ever smoked Second Hand Exposure: No; Do You Dip or Chew Tobacco: No (p-t intubated); Tobacco Cessation Education Requested by Patient: No Hx Alcohol Use: No Hx Substance Use: No Preferred Language: Croatian Communication Ability: Impaired 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 Head- atraumatic Neck- no JVD Lungs- clear to auscultation mild bibasilar crackles Heart- regular rhythm; no murmur, no gallop. Abdomen- sluggish bowel sounds, soft, no distension Extremities- Lower extremity edema present, No erythema seen. Neuro- s/p intubation and sedated Results & Data Results & Data Vital Signs (Past 12 Hours) Vital Signs Temp Pulse Pulse Resp BP BP Pulse Ox 10/10/24 23:39 138 H 40 H 103/84 92 10/10/24 23:02 103/71 10/10/24 23:02 103/71 10/10/24 23:02 103/10/10/24 23:00 117 H 30 H 98 10/10/24 23:00 120/77 10/10/24 23:00 120/77 10/10/24 22:42 126 H 19 94 10/10/24 22:40 168/101 H 10/10/24 22:40 168/101 H 10/10/24 22:40 168/101 H 10/10/24 22:40 168/101 H 10/10/24 22:33 134 H 44 H 92 10/10/24 22:30 143/99 H 10/10/24 22:23 114 H 10/10/24 22:21 128 H 40 H 89 L 10/10/24 22:16 131/93 10/10/24 22:16 131/93 10/10/24 22:16 126 H 10/10/24 22:14 149 H 45 H 91 10/10/24 22:09 142 H 22 85 L 10/10/24 22:09 134 H 44 H 131/93 88 L 10/10/24 22:09 10/10/24 22:09 35.7 C L 128 H 41 H 131/93 86 L 10/10/24 22:09 10/10/24 22:03 129 H 10/10/24 22:01 135/99 O2 Del Method 10/10/24 23:39 10/10/24 23:02 10/10/24 23:02 10/10/24 23:02 10/10/24 23:00 10/10/24 23:00 10/10/24 23:00 10/10/24 22:42 10/10/24 22:40 10/10/24 22:40 10/10/24 22:40 10/10/24 22:40 10/10/24 22:33 10/10/24 22:30 10/10/24 22:23 10/10/24 22:21 10/10/24 22:16 10/10/24 22:16 10/10/24 22:16 10/10/24 22:14 BiPAP 10/10/24 22:09 10/10/24 22:09 BiPAP 10/10/24 22:09 BiPAP 10/10/24 22:09 BiPAP 10/10/24 22:09 BiPAP 10/10/24 22:03 10/10/24 22:01 Diagnostic Findings Laboratory Results WBC 23.59 K/ul (4.8-10.8) H 10/10/24 22:06 RBC 4.51 M/uL (4.70-6.10) L 10/10/24 22:06 Hgb 13.1 g/dl (14.0-18.0) L 10/10/24 22:06 POC Hgb 11.2 g/dl (14.0-18.0) L 10/11/24 01:17 Hct 41.3 % (42.0-52.0) L 10/10/24 22:06 POC Hct 33 % (42-52) L 10/11/24 01:17 MCV 91.6 fL (80.0-100.0) 10/10/24 22:06 MCH 29.0 pg (25.0-34.0) 10/10/24 22:06 MCHC 31.7 g/dL (32.0-36.0) L 10/10/24 22:06 RDW Std Deviation 51.4 fL (36.4-46.3) H 10/10/24 22:06 RDW Coeff of Jose 15.8 % (11.5-14.5) H 10/10/24 22:06 Plt Count 285 K/uL (130-400) 10/10/24 22:06 MPV 11.0 fL (9.4-12.4) 10/10/24 22:06 Immature Gran % (Auto) 1.1 % 10/10/24 22:06 Neut % (Auto) 64.6 % 10/10/24 22:06 Lymph % (Auto) 22.1 % 10/10/24 22:06 [place] % (Auto) 7.4 % 10/10/24 22:06 Eos % (Auto) 4.1 % 10/10/24 22:06 Baso % (Auto) 0.7 % 10/10/24 22:06 Neut # (Auto) 15.26 K/uL (1.40-6.50) H 10/10/24 22:06 Lymph # (Auto) 5.21 K/uL (1.20-3.40) H 10/10/24 22:06 [place] # (Auto) 1.74 K/uL (0.11-0.59) H 10/10/24 22:06 Eos # (Auto) 0.96 K/uL (0.00-0.50) H 10/10/24 22:06 Baso # (Auto) 0.16 K/uL (0.00-0.20) 10/10/24 22:06 Immature Gran # (Auto) 0.26 K/uL (0.01-0.20) H 10/10/24 22:06 PT 11.9 Seconds (9.0-12.0) 10/10/24 22:06 INR 1.1 (0.9-1.1) 10/10/24 22:06 APTT 26 Seconds (21-31) 10/10/24 22:06 PTT Ratio 1.0 10/10/24 22:06 Specimen Type Arterial 10/11/24 01:17 Sample Site L Radial 10/11/24 01:17 POC pH 7.36 (7.35-7.45) 10/11/24 01:17 POC pCO2 35 mmHg (35-46) 10/11/24 01:17 POC pO2 71 mmHg (80-95) L 10/11/24 01:17 POC HCO3 20 ritika/L (19-24) 10/11/24 01:17 POC Total CO2 21 mmol/L (24-31) L 10/11/24 01:17 POC Base Excess -5.0 ritika/L (-9-1.8) 10/11/24 01:17 O2 Sat Pulse Oximetry 93 10/11/24 01:17 ABG pH (Temp Correct) 7.379 (7.35-7.45) 10/11/24 01:17 ABG pCO2 (Temp Corrct 34 mmHg (35-46) L 10/11/24 01:17 POC ABG pO2 at Pt Temp 65 10/11/24 01:17 POC ABG O2 Sat 93.0 % (90-95) 10/11/24 01:17 Henry Test Pass 10/11/24 01:17 VBG pH 7.21 (7.36-7.41) L 10/10/24 22:06 VBG pCO2 52 mmHg (38-50) H 10/10/24 22:06 VBG pO2 35 mmHg 10/10/24 22:06 VBG HCO3 21 mmol/L 10/10/24 22:06 VBG O2 Saturation < 60.0 % 10/10/24 22:06 VBG Base Excess -7.4 mEq/L 10/10/24 22:06 O2 Delivery Device Ventilator 10/11/24 01:17 Vent Mode AC 10/11/24 01:17 POC FiO2 60 % 10/11/24 01:17 End Tidal CO2 22 10/11/24 01:17 POC Sodium 142 mmol/L (135-144) 10/11/24 01:17 Sodium 141 mmol/L (136-145) 10/10/24 22:06 POC Potassium 4.3 mmol/L (3.3-5.0) 10/11/24 01:17 Potassium 4.0 mmol/L (3.5-5.1) 10/10/24 22:06 POC Chloride 110 mmol/L (101-112) 10/10/24 22:14 Chloride 108 mmol/L (98-107) H 10/10/24 22:06 Carbon Dioxide 22 mmol/L (21-32) 10/10/24 22:06 POC Total CO2 20 mmol/L (24-31) L 10/10/24 22:14 Anion Gap 11 (3-11) 10/10/24 22:06 POC Anion Gap 20.0 mmol/L (16-25) 10/10/24 22:14 POC BUN 45 mg/dl (7-18) H 10/10/24 22:14 BUN 45 mg/dl (6-23) H 10/10/24 22:06 Creatinine 1.70 mg/dl (0.6-1.4) H 10/10/24 22:06 POC Creatinine 1.8 mg/dl (0.6-1.3) H 10/10/24 22:14 Est Cr Clr Drug Dosing 44.3 ml/min 10/10/24 22:06 eGFR 41.26 10/10/24 22:06 BUN/Creatinine Ratio 26.5 (10-20) H 10/10/24 22:06 Glucose 216 mg/dl (70-99(Fasting)) H 10/10/24 22:06 POC Glucose (other) 219 mg/dl (70-99) H 10/10/24 22:14 Lactate 1.2 mmol/L (0.4-2.0) 10/11/24 00:59 Calcium 9.1 mg/dl (8.6-10.3) 10/10/24 22:06 POC Ioniz Calcium Codey 1.19 mmol/l (1.12-1.32) 10/10/24 22:14 Magnesium 1.9 mg/dl (1.7-2.4) 10/10/24 22:06 Total Bilirubin 1.1 mg/dl (0.2-1.0) H 10/10/24 22:06 AST 23 U/L (13-39) 10/10/24 22:06 ALT 27 U/L (7-52) 10/10/24 22:06 Alkaline Phosphatase 148 U/L (34-104) H 10/10/24 22:06 Troponin I High Sens 73353.0 pg/ml (0-20) H* D 10/11/24 00:59 B-Natriuretic Peptide 381 pg/ml (0-100) H 10/11/24 00:59 Total Protein 8.9 gm/dl (6.0-8.3) H 10/10/24 22:06 Albumin 4.5 gm/dl (3.4-5.0) 10/10/24 22:06 Globulin 4.4 gm/dl (2.5-4.0) H 10/10/24 22:06 Albumin/Globulin Ratio 1.0 (0.9-2) 10/10/24 22:06 Lipase 44 U/L (11-82) 10/10/24 22:06 Procalcitonin 0.14 ng/ml (0-0.5) 10/10/24 22:06 Impressions Chest X-Ray 10/11/24 00:25 EXAM: XR chest 1V portable CLINICAL HISTORY: Evaluation of Endotracheal tube and lung ruvalcaba. TECHNIQUE: An X-ray image of the chest is obtained in Anteroposterior (AP) projection. COMPARISON: No prior studies are available for comparison. FINDINGS: ETT was applied with its tip positioned 7.4 cm away from the blossom. NGT was applied with its tip seen just crossing the gastroesophageal junction. Another tube was noted in the left middle zone of the chest field, with its tip fairly observed in the mediastinum. Pulmonary Parenchyma: Lungs are showing bilateral, mainly central opacities (batwing sign) likely related to pulmonary edema. The underlying infection could not be ruled out. No pulmonary nodules are identified. No evidence of pleural effusion or pleural thickening. Heart and Mediastinum: The heart size is enlarged. No mediastinal widening or masses. No hilar or mediastinal lymphadenopathy. Bony Thorax: The bony thorax appears intact without fractures or deformities. Soft Tissues: Sternotomy wiers applied. Soft tissues overlying the chest wall are unremarkable. IMPRESSION: 1. The endotracheal tube was applied with its tip positioned 7.4 cm away from the blossom. 2. Nasogastric Tube was applied with its tip seen just crossing the gastroesophageal junction. 3. Another tube was noted in the left middle zone of the chest field, with its tip fairly observed in the mediastinum. 4. The lungs show bilateral, mainly central opacities (batwing sign), likely related to pulmonary edema. An underlying infection could not be ruled out. 5. Further clinical and laboratory correlation, as well as follow-up, is recommended. Electronically signed by Juan Carlos Mckoy 10-11-2024 01:26 AM ECG Additional Comments: ECG. Sinus tachycardia with first-degree AV block with PACs rate of 142. Incomplete left bundle branch block. Marked ST abnormality in lateral leads
[2024-10-11] MEDS ORDERED: GLUCAGON FOR INJ 1 MG VIAL SQ PRN (02:03)
[2024-10-11] MEDS ORDERED: CARBOHYDRATES FOR HYPOGLYCEMIA PO PRN (02:03)
[2024-10-11] MEDS ORDERED: PHARMACY GLYCEMIC MGMT CONSULT PRN (02:03)
[2024-10-11] MEDS ORDERED: DEXTROSE 50% 50 ML SYRINGE IV PRN (02:03)
[2024-10-11] MEDS ORDERED: GLUCOSE 40% GEL 15 GM TUBE PO PRN (02:03)
[2024-10-11] MEDS ORDERED: GLUCOSE 10 TAB/TUBE PO PRN (02:03)
[2024-10-11] MEDS: HEPARIN 25000 UNIT/500 ML D5W 25,000 UNITS/500 ML BAG IV SCH (02:30)
[2024-10-11] MEDS: HEPARIN SOD (PORCINE) 1000 UNIT/ML IV ONE (02:30)
[2024-10-11] MEDS: Heparin IV Adult Wt-Based Low-Dose w/ INITIAL Bolus Protocol IV STA (02:31)
[2024-10-11] MEDS: INSULIN ASPART PER UNIT CHARGE SC SCH (02:38)
--- NOTE | 2024-10-11 03:12 | CT Scan Report ---
EXAM: CT angio chest PE protocol CLINICAL HISTORY: PE TECHNIQUE: Contiguous axial images were obtained from the neck base through the upper abdomen following intravenous administration of iodinated contrast material. Angiographic images were processed, 3D MIP images were acquired for interpretation. If IV contrast material had not been administered, the likelihood of detecting abnormalities relevant to the patient's condition would have been substantially decreased. Coronal and sagittal 3-D MIPs were likewise performed and indicated to increase the sensitivity of detecting diffuse clinically relevant pathology. CT scan was performed according to ALARA (as low as reasonably achievable). COMPARISON: None. FINDINGS: Endotracheal tube noted in situ. Nasogastric tube noted in-situ. Sternal sutures are seen. Mild to moderate bilateral pleural effusion is noted causing compression atelectasis of underlying lung parenchyma, more on right side. Multiple patchy areas of consolidations, ground-glass densities with superimposed interstitial thickening is noted involving bilateral lung parenchyma, predominantly lower lobes. Predominant central, perihilar distribution of the consolidation is noted. Atherosclerotic calcifications are noted involving aorta and its branches, coronary arteries. The central airways are patent. Hypodense intraluminal content in main bronchi in dependent aspect. The heart is normal in size. No pericardial effusion is identified. Aorta, and pulmonary arteries are of normal size and configuration. No axillary or mediastinal adenopathy is identified. No aggressive appearing osseous lesions are identified. IMPRESSION: 1. No evidence of pulmonary embolism. 2. Mild to moderate bilateral pleural effusion is noted causing compression atelectasis of underlying lung parenchyma, more on right side. 3. Multiple patchy areas of consolidations, ground-glass densities with superimposed interstitial thickening are noted involving bilateral lung parenchyma, predominantly lower lobes. Predominant central, perihilar distribution of the consolidations is noted. Possibility of aspirated related changes keeping in view the hypodense intraluminal content in main bronchi. Possibility of pulmonary edema needs consideration. Suggested clinical correlation/follow up. Electronically signed by Viktor Lugo 10-11-2024 03:11 AM
--- NOTE | 2024-10-11 03:14 | CT Scan Report ---
EXAM: CT abdomen pelvis wo/w con CLINICAL HISTORY: Eval for infective or mass. TECHNIQUE: Contrast-enhanced CT of the abdomen and pelvis was performed, with the following protocol: axial images with, and reconstructed coronal and sagittal images. Intravenous contrast was administered. One of the following dose reduction techniques was utilized for this exam: Automated exposure control, adjustment of the mA and/or kV according to patient size, and use of iterative reconstruction. COMPARISON: None. FINDINGS: Abdomen: Liver: Is mildly enlarged in size measures 17, shape, and density. No focal lesions, cysts, or masses were identified. Hepatic vasculature and biliary ducts are unremarkable. Gallbladder and Biliary System: Surgically removed with surgical clips seen in the gall bladder bed. The common bile duct is normal in caliber without dilation. Pancreas: The pancreatic head, body, and tail are visualized and appear normal in size and density. No pancreatic masses or calcifications were noted. The pancreatic duct is not dilated. Spleen: Is enlarged in size measures 14.5 cm with normal shape and density. No splenic lesions or masses were identified. Appendix: The appendix is not well visualized. Kidneys and Adrenal Glands: Both kidneys are surrounding with minimal perinephric fat stranding, which may be a non-specific and normal finding with age. Both kidneys are normal in size, shape, and position. Cortical thickness is within normal limits. Tiny renal calculi measures about 2 mm seen in both renal pelvis. No hydronephrosis. Adrenal glands are unremarkable with no evidence of masses or hyperplasia. Left renal upper pole simple cyst measures about 2 cm in diameter. Pelvis: Urinary Bladder: Is catheterized. No intraluminal lesions identified. Small left inguinal hernia containing fat. Prostate: Normal in size and contour. No focal lesions or masses identified. Seminal Vesicles: Normal in size and appearance. No abnormalities noted. Rectum and Sigmoid Colon: Normal wall thickness and no evidence of mass. Peritoneal and Retroperitoneal Structures: Trace of intraperitoneal free fluid was seen in the subhepatic and right paracolic gutter. No lymphadenopathy was noted. Advanced atherosclerotic intimal calcification of the abdominal aort and its main branches. Small umbilical hernia containing fat. Bowel: NG tube is seen with its tip in the stomach. The visualized bowel loops are normal in caliber and appearance. No evidence of bowel obstruction or wall thickening. Bones and Soft Tissues: Marked spondylodegenerative changes of the lumber spine with multilevel disc space narrowing. Minimal anterolisthesis of L4 over L5 Minimal retrolisthesis of L2 over L3 Pelvic bones and soft tissues are unremarkable. No fractures or abnormal masses were identified. lower deangelo through chest recelaed bilateral moderate pleural effusion with subsegmental lung collapse. Bilateral scattered diffuse areas of airspace filling opacity involving both lungs. IMPRESSION: 1. Mild hepatomegaly for correlation with ultrasound and LFT. 2. Mild splenomegaly. 3. Trace of right subhepatic and right paracolic gutter free fluid. (ascites) 4. Bilateral moderate plural effusion with subsegmental lung collapse associated with bilateral scattered areas of airspace filling opacity denoting an ongoing infectious process, please correlate with CT chest findings. 5. Small left inguinal and umbilical hernia containing fat. 6. Bilateral tiny right renal stone 2 mm. Electronically signed by Juan Carlos Mckoy 10-11-2024 03:14 AM
[2024-10-11 04:37] LABS: Basophils # (auto) 0.05 K/uL (0.00-0.20); Basophils % (auto) 0.3 %; Eosinophils # (auto) 0.05 K/uL (0.00-0.50); Eosinophils % (auto) 0.3 %; Hematocrit (blood only) 32.5 % (42.0-52.0); Hemoglobin 10.4 g/dl (14.0-18.0); Immature Granulocytes # (auto) 0.14 K/uL (0.01-0.20); Immature Granulocytes % (auto) 0.8 %; Lymphocytes # (auto) 0.76 K/uL (1.20-3.40); Lymphocytes % (auto) 4.3 %; Mean Corpuscular Volume 90.5 fL (80.0-100.0); Mean Platelet Volume 10.9 fL (9.4-12.4); Monocytes # (auto) 1.09 K/uL (0.11-0.59); Monocytes % (auto) 6.2 %; Neutrophils # (auto) 15.49 K/uL (1.40-6.50); Neutrophils % (auto) 88.1 %; Platelet Count 172 K/uL (130-400); RDW Coefficient of Variation 15.5 % (11.5-14.5); RDW Standard Deviation 50.4 fL (36.4-46.3); Red Blood Count 3.59 M/uL (4.70-6.10); White Blood Count 17.58 K/ul (4.8-10.8)
[2024-10-11 04:54] LABS: BUN Creatinine Ratio 28.8 (10-20); Calcium 8.1 mg/dl (8.6-10.3); Creatinine Clr Calc Pharmacy 44.3 ml/min; Magnesium 1.8 mg/dl (1.7-2.4); Phosphorus 3.7 mg/dl (2.5-4.9); Potassium 4.5 mmol/L (3.5-5.1)
[2024-10-11] MEDS: MAGNESIUM SULFATE / D5W 1 GM/100 ML BAG IV SCH (05:20)
[2024-10-11 05:40] LABS: Troponin I High Sensitivity 76386.1 pg/ml (0-20)
[2024-10-11] MEDS ORDERED: ICU Protocol for HYPERglycemia SCH (06:00)
--- NOTE | 2024-10-11 07:55 | Critical Care Progress Note ---
Date of Service October 11, 2024 Assessment & Plan (1) Hypoxic respiratory failure: (2) MILLI (acute kidney injury): (3) Paroxysmal A-fib: (4) CAD (coronary artery disease): (5) DMII (diabetes mellitus, type 2): (6) Multifocal pneumonia: (7) Elevated troponin: (8) CKD (chronic kidney disease): (9) Normocytic anemia: Plan Reason Critically Ill: 74 YOM presents with acute onset of chest pain was found to be hypoxic tachypneic tachycardic, was urgently intubated in ER and taken urgently to angio suite for cardiac angiography, which did not reveal acute thrombus for intervention. Patient now to the ICU intubated and sedated. Neuro - Sedation for mechanical ventilation CAM ICU: FATOUMATA - Propofol and Fentanyl for sedation goal RAFAEL -1 and ventilator synchrony - Restraints while intubated Cardiac - chest pain, PAF, HX: CAD, Bioprosthetic AVR --Elevated troponins Likely type II [facility] Cardiac angiography 10/10/2024 without acute occlusive disease- no intervention - EF reported 30-35% during angio- - No pericardial effusion on cath --A-fib RVR with history of bioprosthetic aortic valve Beta-blockers as needed --History of coronary artery disease S/p bypass On aspirin and Plavix at home Respiratory - Acute hypoxic respiratory failure, abnormal CXR CT chest 10/11/2024 personally reviewed: Motion degraded study Interlobular thickening appreciated bilaterally Patchy opacities appreciated bilaterally upper and lower lobes Moderate bilateral pleural effusion Significant mucus in the trachea No significant mediastinal lymphadenopathy -- VDRF Likely secondary to multifocal pneumonia with pulmonary edema Continue with ventilatory support Keep RASS -1 Daily sedation holidays and SBT's Continue with broad-spectrum antibiotics Follow-up sputum culture GI - No acute needs RENAL/LYTES - MILLI on CKD -- MILLI Monitor BUN/creatinine Avoid nephrotoxic medications Strict ins and outs - No acute needs ENDO - DM-II - ICU hypoglycemia protocol HEME - -- ? use of terminologist anticoagulation - reports Coumadin- however not on med rec and is also on ASA/Plavix. ID - --Multifocal pneumonia Procalcitonin 0.14 Continue with broad-spectrum antibiotics Leukocytosis could be reactive to acute presentation, continue to trend --Prophylaxis VTE: Heparin drip GI: Pantoprazole Lines: Peripheral Diet: N.p.o. Plan: In/out: -838 mL, urine output 1225 AB.36/35/71 on 60% CTA chest which was personally reviewed does show significant patchy opacities bilaterally with pleural effusion Will give 2 mg of Bumex today. There has been a drop in hemoglobin, repeat H&H later today Magnesium being replaced Continue with antibiotics Follow-up sputum culture Start the patient on tube feeds I have personally spent 42 minutes of critical care time in the direct management of this patient. This is a life/limb threatening event. This includes time spent evaluating patient, direct bedside care, chart review, placing orders, interpretation of diagnostic studies, discussion with consultants, patient, and family members, as well as other required patient management activities. This time is exclusive of all separately billable procedures, and separate from and in addition to any other critical care service time. Thank you for allowing us to participate in the care of this patient. Please refer to my attending physician's documentation for any further recommendations. Admission and Anticipated Discharge Date Admission Date: October 10, 2024 Subjective Patient seen and examined at bedside. No acute distress, no adverse events overnight. Patient was on 35 propofol and 50 of fentanyl at the time of examination He was breathing over the vent Saturation was 93-94%, SBP in the 130s. He was waking up and answering questions appropriately Denied any headache, no chest pain, no abdominal pain Review of Systems 2 Review of Systems: All systems reviewed & are unremarkable except as noted in Subjective and Unobtainable due to endotracheal tube Physical Exam 2 Physical Exam: Constitutional: No acute distress HEENT: PERRLA Respiratory system: Decreased air entry bilaterally, no wheeze, no rhonchi, positive crackles bilaterally CVS: S1-S2 positive, no murmurs or gallops Abdomen: Soft, nontender, nondistended, positive bowel sounds x4 Extremities: +2 pulses bilaterally radialis/ dorsalis pedis, no cyanosis, no edema Neuro: Sedated, RASS -1, moving all extremities to command Psych: Unable to assess G/U: Positive [place] Skin: no rashes, warm and dry Lymphatic: no cervical or axillary lymphadenopathy Results & Data Results & Data Vital Signs (Past 12 Hours) Vital Signs Temp Pulse Pulse Resp BP BP Pulse Ox 10/11/24 07:00 112/58 L 10/11/24 06:36 36.3 C L 62 21 98 10/11/24 06:31 112/56 L 10/11/24 06:30 36.3 C L 63 19 97 10/11/24 06:02 36.2 C L 59 L 21 97 10/11/24 06:00 100/52 L 10/11/24 06:00 100/52 L 10/11/24 06:00 100/52 L 10/11/24 05:50 36.1 C L 59 L 19 96 10/11/24 05:41 36.1 C L 60 17 96 10/11/24 05:30 95/50 L 10/11/24 05:11 36.0 C L 61 23 95 10/11/24 05:02 35.9 C L 62 26 H 96 10/11/24 05:00 101/52 L 10/11/24 05:00 101/52 L 10/11/24 05:00 101/52 L 10/11/24 04:59 35.9 C L 63 19 95 10/11/24 04:44 35.8 C L 66 20 97 10/11/24 04:30 126/60 10/11/24 04:23 35.6 C L 76 33 H 97 10/11/24 04:08 35.5 C L 70 30 H 117/61 94 10/11/24 03:47 35.5 C L 58 L 20 95 10/11/24 03:46 10/11/24 03:24 10/11/24 03:20 35.5 C L 58 L 18 93 10/11/24 03:08 35.5 C L 59 L 20 93 10/11/24 03:00 87/47 L 10/11/24 03:00 87/47 L 10/11/24 03:00 87/47 L 10/11/24 02:57 35.4 C L 56 L 20 93 10/11/24 02:55 88/50 L 10/11/24 02:42 35.5 C L 57 L 16 92 10/11/24 02:30 35.5 C L 56 L 23 93 10/11/24 02:30 95/51 L 10/11/24 02:30 95/51 L 10/11/24 02:30 95/51 L 10/11/24 02:18 61 23 93 10/11/24 02:15 35.4 C L 60 20 112/51 L 92 10/11/24 02:06 59 L 20 92 10/11/24 01:15 35.8 C L 70 27 H 92 10/11/24 01:10 36.5 C 63 18 132/64 96 10/11/24 01:00 70 26 H 95 10/11/24 01:00 116/71 10/11/24 00:51 73 32 H 95 10/11/24 00:33 76 31 H 97 10/11/24 00:27 79 27 H 100 10/11/24 00:21 139/79 10/11/24 00:21 139/79 10/11/24 00:21 139/79 10/11/24 00:17 10/11/24 00:17 94 H 10/10/24 23:39 138 H 40 H 103/84 92 10/10/24 23:02 103/71 10/10/24 23:02 103/71 10/10/24 23:02 103/71 10/10/24 23:00 117 H 30 H 98 10/10/24 23:00 120/77 10/10/24 23:00 120/77 10/10/24 22:42 126 H 19 94 10/10/24 22:40 168/101 H 10/10/24 22:40 168/101 H 10/10/24 22:40 168/101 H 10/10/24 22:40 168/101 H 10/10/24 22:33 134 H 44 H 92 10/10/24 22:30 143/99 H 10/10/24 22:23 114 H 10/10/24 22:21 128 H 40 H 89 L 10/10/24 22:16 131/93 10/10/24 22:16 131/93 10/10/24 22:16 126 H 10/10/24 22:15 16 10/10/24 22:14 149 H 45 H 91 10/10/24 22:09 142 H 22 85 L 10/10/24 22:09 134 H 44 H 131/93 88 L 10/10/24 22:09 10/10/24 22:09 35.7 C L 128 H 41 H 131/93 86 L 10/10/24 22:09 10/10/24 22:03 129 H 10/10/24 22:01 135/99 Pulse Ox O2 Del Method O2 Del Method FiO2 10/11/24 07:00 10/11/24 06:36 10/11/24 06:31 10/11/24 06:30 10/11/24 06:02 10/11/24 06:00 10/11/24 06:00 10/11/24 06:00 10/11/24 05:50 10/11/24 05:41 10/11/24 05:30 10/11/24 05:11 10/11/24 05:02 10/11/24 05:00 10/11/24 05:00 10/11/24 05:00 10/11/24 04:59 10/11/24 04:44 10/11/24 04:30 10/11/24 04:23 10/11/24 04:08 10/11/24 03:47 10/11/24 03:46 60 10/11/24 03:24 Mechanical Vent 60 10/11/24 03:20 10/11/24 03:08 10/11/24 03:00 10/11/24 03:00 10/11/24 03:00 10/11/24 02:57 10/11/24 02:55 10/11/24 02:42 10/11/24 02:30 10/11/24 02:30 10/11/24 02:30 10/11/24 02:30 10/11/24 02:18 60 10/11/24 02:15 10/11/24 02:06 10/11/24 01:15 10/11/24 01:10 Mechanical Vent 10/11/24 01:00 10/11/24 01:00 10/11/24 00:51 10/11/24 00:33 10/11/24 00:27 10/11/24 00:21 10/11/24 00:21 10/11/24 00:21 10/11/24 00:17 100 Mechanical Vent 10/11/24 00:17 10/10/24 23:39 10/10/24 23:02 10/10/24 23:02 10/10/24 23:02 10/10/24 23:00 10/10/24 23:00 10/10/24 23:00 10/10/24 22:42 10/10/24 22:40 10/10/24 22:40 10/10/24 22:40 10/10/24 22:40 10/10/24 22:33 10/10/24 22:30 10/10/24 22:23 10/10/24 22:21 10/10/24 22:16 10/10/24 22:16 10/10/24 22:16 10/10/24 22:15 100 10/10/24 22:14 BiPAP 10/10/24 22:09 10/10/24 22:09 BiPAP 10/10/24 22:09 BiPAP 10/10/24 22:09 BiPAP 10/10/24 22:09 BiPAP 10/10/24 22:03 10/10/24 22:01 Laboratory Results 10/11/24 04:23 10/11/24 04:23 Coding Level of Care Code 29092 CRITICAL CARE 1ST 30-74M Diagnoses Hypoxic respiratory failure J96.91 MILLI (acute kidney injury) N17.9 Paroxysmal A-fib I48.0 CAD (coronary artery disease) I25.10 DMII (diabetes mellitus, type 2) E11.9 Multifocal pneumonia J18.9 Elevated troponin R79.89 CKD (chronic kidney disease) N18.9 Normocytic anemia D64.9
[2024-10-11 08:01] LABS: Estimated Average Glucose 160 mg/dl; Hemoglobin A1C 7.2 % (4.5-5.6)
[2024-10-11] MEDS: cefTRIAXone SODIUM 2,000 MG/50 ML BAG IV SCH (08:29)
[2024-10-11] MEDS: DOXYCYCLINE HYCLATE 100 MG in DEXTROSE 5% MINI-B 100 ML IV SCH (08:37)
--- NOTE | 2024-10-11 09:04 | Cardiology Consultation ---
Date of Consultation October 11, 2024 Assessment & Plan (1) Hypoxic respiratory failure: (2) Elevated troponin: (3) Paroxysmal A-fib: (4) Multifocal pneumonia: Plan Assessment: 74 year old male presents in acute hypoxic respiratory failure requiring intubation. EKG with new onset A-fib with RVR, troponin elevation and subsequently taken to the catheterization lab. Cardiology requested for ongoing assessment and recommendations. Plan: 1. Acute Hypoxic respiratory failure: -Multifactorial -patient's Chest xray and CT scan concerning for pulmonary edema -WBC count elevated with evidence of patchy consolidation concern for an acute infectious process/multifocal pneumonia. Ongoing management per referral management liaison/primary team with antibiotics -Blood cultures pending -Patient remains intubated as managed by referral management liaison/pulmonology team. -Patient is on Lasix 80mg PO QD at home. He received a one time dose of IV lasix in the ER and this morning has received Bumex 2mg IV x1 dose today. Agree with plan and will reassess fluid status in the AM -Strict I&O as well as daily weights. -Close monitoring of renal function as well as goal serum K > 4.0 and serum Mag > 2.0. IV mag supplementation today as ordered 2. Elevated Troponin, Type II demand ischemia -In the setting of acute hypoxic resp. failure requiring intubation -Cardiac cath with no acute thrombosis or lesion identified. Bypass grafts patent -Troponin now trending down -Patient remains chest pain free -Continue heparin gtt -H/H noted to have declined today, plan to recheck this evening per primary team. -No notation of luis angel bleeding. -BP stable, but may give consideration to adding a topical nitrate for BP control if needed. Patient is on a high dose of PO long-acting nitrate outpatient. -Recommend that patient receive beta deion in IV form as he currently is intubated and does not have an OG tube. Consider IV Lopressor 2.5mg PO Q6H. -EKG today. completed -Oral medications current on hold due to intubation 3. Paroxysmal Atrial fibrillation -Converted during course of cardiac cath. -Patient is on a substantial home dose of Toprol xl (100mg PO BID), would recommend that he be placed on IV lopressor 2.5mg Q6H while not taking PO for rate control in the setting of recent a-fib and elevated troponin with known significant cardiac disease -Continue Heparin gtt at this time. Monitor H/H closely. 4. Multifocal pneumonia -As stated above part of reason for acute resp failure. -Ongoing management per primary/referral management liaison team Case has been discussed with Dr. Bucio. Further recommendations regarding plan of care as per his assessment. I spent a total of 40 minutes on the date of service in preparation, delivery, documentation of the care provided to the patient excluding any time spent in the performance of separately billed services. JARED [facility] Cardiology [facility] Patient primary circulation worker [facility] Cindy Waller MD Supervising Physician Co-Signing Physician Notes Patient was seen and personally examined. Chart, medications, telemetry reviewed. Full assessment and plan as outlined by advanced provider as above. Care and management discussed in detail and personally endorsed 74-year-old male currently intubated after presenting with respiratory failure. Data retrieved from review of the records but clinical history of remote coronary bypass grafting and prior valve replacement. Patient presented with acute respiratory failure, elevated troponin and was taken to the [facility] where coronary angiography demonstrated patent grafts but very severe [place] vessel coronary artery disease including distal to graft anastomoses. Initial event may have been precipitated by atrial fibrillation currently in sinus rhythm X-rays consistent with possible pneumonia with superimposed pulmonary edema Still requiring ventilatory support Recommendations as above. The patient on extensive cardiac regimen medically currently on Hold .Longstanding history of ischemic heart disease of greater than 20 years as well as extensive hypertensive historyWill add IV metoprolol as beta-deion to his regimen. Topical nitrates 1/2 inch every 6Hours. May be removed for hypotension Echocardiogram reviewed demonstrating scarred inferior wall from base to apex with dyskinetic apex involving apical inferior wall and septum. Ejection fraction 40-45%. Bioprosthetic aortic valve in place with normal valve function History of Present Illness Reason for Consultation: CHF Requesting Physician: Ugo victoriaist Attending Physician: Zaria Tripathi MD History of Present Illness HPI: Patient is a 74 year old male from [place], [place] with PMHx significant for CAD s/p CABG, Aortic valve replacement approx 20 years ago, HTN, HLD, DM, GERD and BPH that presented to the ER with exertional dyspnea and chest for the past few months. The evening of admission patient's states that patient became increasingly short of breath and had chest pain. He took a total of 3 SL NTG and EMS was summoned. Patient's O2 sat was in the 60's and patient did not tolerate Bipap. Initial imaging showed pulmonary edema, he received 80mg IV Lasix and was intubated. Patient was subsequently taken to the blood bank laboratory technician and all bypass grafts were patent. There is distal RCA after anastomosis possible acute vs chronic medical management recommended. Patient was also found to be in A-fib, but converted during the case. Patient seen and examined today in ICU. Nursing staff at bedside obtaining an EKG. No family present at this time. Patient is currently intubated, but is awake and is able to nod yes and no to questions. Denies any chest pain, pressure or palpitations. Denies any shortness of breath, but really wants the breathing tube out. Nursing staff reports no acute events overnight. Initial Chest xray IMPRESSION: There are extensive bilateral infiltrates with a small left pleural effusion.. Repeat chest xray this morning: IMPRESSION: 1. The endotracheal tube was applied with its tip positioned 7.4 cm away from the blossom. 2. Nasogastric Tube was applied with its tip seen just crossing the gastroesophageal junction. 3. Another tube was noted in the left middle zone of the chest field, with its tip fairly observed in the mediastinum. 4. The lungs show bilateral, mainly central opacities (batwing sign), likely related to pulmonary edema. An underlying infection could not be ruled out. 5. Further clinical and laboratory correlation, as well as follow-up, is recommended. Chest CT: IMPRESSION: 1. No evidence of pulmonary embolism. 2. Mild to moderate bilateral pleural effusion is noted causing compression atelectasis of underlying lung parenchyma, more on right side. 3. Multiple patchy areas of consolidations, ground-glass densities with superimposed interstitial thickening are noted involving bilateral lung parenchyma, predominantly lower lobes. Predominant central, perihilar distribution of the consolidations is noted. Possibility of aspirated related changes keeping in view the hypodense intraluminal content in main bronchi. Possibility of pulmonary edema needs consideration. Suggested clinical correlation/follow up. HST: 50.3/25941.0/20604.1 Blood cultures are pending Allergies Allergy/AdvReac Type Severity Reaction Status Date / Time iodine Allergy Hives Verified 10/10/24 22:22 Sulfa (Sulfonamide Allergy Hives Verified 10/10/24 22:22 Antibiotics) Home Medications Medication Instructions Recorded Confirmed Type Plavix 75 mg PO DAILY 10/10/24 10/10/24 History Urocit-K 15 10/10/24 History aspirin 81 mg capsule 81 mg PO DAILY 10/10/24 10/10/24 History atorvastatin 80 mg tablet 80 mg PO HS 10/10/24 10/10/24 History famotidine 40 mg tablet 40 mg PO DAILY 10/10/24 10/10/24 History folic acid 1 mg tablet 1 mg PO DAILY 10/10/24 10/10/24 History furosemide 80 mg tablet (Lasix) 80 mg PO DAILY 10/10/24 10/10/24 History insulin aspart U-100 100 unit/mL 15 unit subcut DAILY 10/10/24 10/10/24 History (3 mL) subcutaneous pen (Novolog FlexPen U-100 Insulin aspart) insulin degludec 100 unit/mL (3 52 unit subcut DAILY 10/10/24 10/10/24 History mL) subcutaneous pen (Tresiba FlexTouch U-100 insulin) isosorbide mononitrate 120 mg 120 mg PO DAILY 10/10/24 10/10/24 History tablet,extended release 24 hr lisinopril 10 mg tablet 10 mg PO DAILY 10/10/24 10/10/24 History magnesium oxide 400 mg PO DAILY 10/10/24 10/10/24 History metoprolol succinate 100 mg 100 mg PO BID 10/10/24 10/10/24 History tablet,extended release 24 hr nifedipine 60 mg tablet,extended 60 mg PO BID 10/10/24 10/10/24 History release pantoprazole 40 mg tablet,delayed 40 mg PO DAILY 10/10/24 10/10/24 History release tamsulosin 0.4 mg capsule 0.4 mg PO DAILY 10/10/24 10/10/24 History Patient History Medical History (Updated 10/11/24 @ 10:34 by Steff Manuel MD, [facility]) DMII (diabetes mellitus, type 2) CAD (coronary artery disease) Social History Smoking Status: Unknown if ever smoked Second Hand Exposure: No; Do You Dip or Chew Tobacco: No (p-t intubated); Tobacco Cessation Education Requested by Patient: No Hx Alcohol Use: No Hx Substance Use: No Preferred Language: Italian Communication Ability: Effective Agricultural Produce Washer Required: No Beliefs That Will Affect Care: None Current Living Situation: Spouse Other Information That Helps Us Care for You: No (pt intubated) Feels Safe at Home: Declines to Answer Assistive Devices: Walker Review of Systems Review of Systems: Unobtainable due to endotracheal tube can nod 'yes and no' to basic questions Physical Exam Constitutional: well developed, well nourished and + mechanically ventilated; no acute distress Neck: normal visual inspection and trachea midline Respiratory: symmetric chest movement (currently mechanical ventilated ); no respiratory distress, no cough and no audible wheezes Auscultation: lungs clear to auscultation bilaterally and + diminished lung sounds (bilateral bases ); no crackles, no rales, no rhonchi and no wheezes Cardiovascular: Rate/Rhythm: regular rate and regular rhythm; not bradycardic Heart Sounds: normal S1, normal S2 and + murmur (+1/6 systolic ) Vessels: dorsalis pedis pulses present; no JVD Extremities: no edema Skin: no rashes, warm and dry Psychiatric: Orientation: alert Patient is intubated and nods head yes and no to simple questions Results & Data Vital Signs (Past 12 Hours) Vital Signs Temp Pulse Pulse Resp BP BP Pulse Ox 10/11/24 08:00 10/11/24 07:50 10/11/24 07:00 112/58 L 10/11/24 06:36 36.3 C L 62 21 98 10/11/24 06:31 112/56 L 10/11/24 06:30 36.3 C L 63 19 97 10/11/24 06:02 36.2 C L 59 L 21 97 10/11/24 06:00 100/52 L 10/11/24 06:00 100/52 L 10/11/24 06:00 100/52 L 10/11/24 05:50 36.1 C L 59 L 19 96 10/11/24 05:41 36.1 C L 60 17 96 10/11/24 05:30 95/50 L 10/11/24 05:11 36.0 C L 61 23 95 10/11/24 05:02 35.9 C L 62 26 H 96 10/11/24 05:00 101/52 L 10/11/24 05:00 101/52 L 10/11/24 05:00 101/52 L 10/11/24 04:59 35.9 C L 63 19 95 10/11/24 04:44 35.8 C L 66 20 97 10/11/24 04:30 126/60 10/11/24 04:23 35.6 C L 76 33 H 97 10/11/24 04:08 35.5 C L 70 30 H 117/61 94 10/11/24 03:47 35.5 C L 58 L 20 95 10/11/24 03:46 10/11/24 03:24 10/11/24 03:20 35.5 C L 58 L 18 93 10/11/24 03:08 35.5 C L 59 L 20 93 10/11/24 03:00 87/47 L 10/11/24 03:00 87/47 L 10/11/24 03:00 87/47 L 10/11/24 02:57 35.4 C L 56 L 20 93 10/11/24 02:55 88/50 L 10/11/24 02:42 35.5 C L 57 L 16 92 10/11/24 02:30 35.5 C L 56 L 23 93 10/11/24 02:30 95/51 L 10/11/24 02:30 95/51 L 10/11/24 02:30 95/51 L 10/11/24 02:18 61 23 93 10/11/24 02:15 35.4 C L 60 20 112/51 L 92 10/11/24 02:06 59 L 20 92 10/11/24 01:15 35.8 C L 70 27 H 92 10/11/24 01:10 36.5 C 63 18 132/64 96 10/11/24 01:00 70 26 H 95 10/11/24 01:00 116/71 10/11/24 00:51 73 32 H 95 10/11/24 00:33 76 31 H 97 10/11/24 00:27 79 27 H 100 10/11/24 00:21 139/79 10/11/24 00:21 139/79 10/11/24 00:21 139/79 10/11/24 00:17 10/11/24 00:17 94 H 10/10/24 23:39 138 H 40 H 103/84 92 10/10/24 23:02 103/71 10/10/24 23:02 103/71 10/10/24 23:02 103/71 10/10/24 23:00 117 H 30 H 98 10/10/24 23:00 120/77 10/10/24 23:00 120/77 10/10/24 22:42 126 H 19 94 10/10/24 22:40 168/101 H 10/10/24 22:40 168/101 H 10/10/24 22:40 168/101 H 10/10/24 22:40 168/101 H 10/10/24 22:33 134 H 44 H 92 10/10/24 22:30 143/99 H 10/10/24 22:23 114 H 10/10/24 22:21 128 H 40 H 89 L 10/10/24 22:16 131/93 10/10/24 22:16 131/93 10/10/24 22:16 126 H 10/10/24 22:15 16 10/10/24 22:14 149 H 45 H 91 10/10/24 22:09 142 H 22 85 L 10/10/24 22:09 134 H 44 H 131/93 88 L 10/10/24 22:09 10/10/24 22:09 35.7 C L 128 H 41 H 131/93 86 L 10/10/24 22:09 10/10/24 22:03 129 H 10/10/24 22:01 135/99 Pulse Ox O2 Del Method O2 Del Method FiO2 10/11/24 08:00 0.45 10/11/24 07:50 Mechanical Vent 0.45 10/11/24 07:00 10/11/24 06:36 10/11/24 06:31 10/11/24 06:30 10/11/24 06:02 10/11/24 06:00 10/11/24 06:00 10/11/24 06:00 10/11/24 05:50 10/11/24 05:41 10/11/24 05:30 10/11/24 05:11 10/11/24 05:02 10/11/24 05:00 10/11/24 05:00 10/11/24 05:00 10/11/24 04:59 10/11/24 04:44 10/11/24 04:30 10/11/24 04:23 10/11/24 04:08 10/11/24 03:47 10/11/24 03:46 60 10/11/24 03:24 Mechanical Vent 60 10/11/24 03:20 10/11/24 03:08 10/11/24 03:00 10/11/24 03:00 10/11/24 03:00 10/11/24 02:57 10/11/24 02:55 10/11/24 02:42 10/11/24 02:30 10/11/24 02:30 10/11/24 02:30 10/11/24 02:30 10/11/24 02:18 60 10/11/24 02:15 10/11/24 02:06 10/11/24 01:15 10/11/24 01:10 Mechanical Vent 10/11/24 01:00 10/11/24 01:00 10/11/24 00:51 10/11/24 00:33 10/11/24 00:27 10/11/24 00:21 10/11/24 00:21 10/11/24 00:21 10/11/24 00:17 100 Mechanical Vent 10/11/24 00:17 10/10/24 23:39 10/10/24 23:02 10/10/24 23:02 10/10/24 23:02 10/10/24 23:00 10/10/24 23:00 10/10/24 23:00 10/10/24 22:42 10/10/24 22:40 10/10/24 22:40 10/10/24 22:40 10/10/24 22:40 10/10/24 22:33 10/10/24 22:30 10/10/24 22:23 10/10/24 22:21 10/10/24 22:16 10/10/24 22:16 10/10/24 22:16 10/10/24 22:15 100 10/10/24 22:14 BiPAP 10/10/24 22:09 10/10/24 22:09 BiPAP 10/10/24 22:09 BiPAP 10/10/24 22:09 BiPAP 10/10/24 22:09 BiPAP 10/10/24 22:03 10/10/24 22:01 Laboratory Results Cardiac Enzymes 10/10/24 10/11/24 10/11/24 Range/Units 22:06 00:59 04:23 AST 23 (13-39) U/L Troponin I High Sens 50.3 H* 72483.0 H* D 95495.1 H* D (0-20) pg/ml B-Natriuretic Peptide 381 H (0-100) pg/ml Coagulation 10/10/24 10/11/24 Range/Units 22:06 00:59 PT 11.9 (9.0-12.0) Seconds APTT 26 (21-31) Seconds B-Natriuretic Peptide 381 H (0-100) pg/ml CBC 10/10/24 10/11/24 Range/Units 22:06 04:23 WBC 23.59 H 17.58 H (4.8-10.8) K/ul RBC 4.51 L 3.59 L (4.70-6.10) M/uL Hgb 13.1 L 10.4 L (14.0-18.0) g/dl Hct 41.3 L 32.5 L (42.0-52.0) % Plt Count 285 172 (130-400) K/uL Neut # (Auto) 15.26 H 15.49 H (1.40-6.50) K/uL Lymph # (Auto) 5.21 H 0.76 L (1.20-3.40) K/uL [place] # (Auto) 1.74 H 1.09 H (0.11-0.59) K/uL Eos # (Auto) 0.96 H 0.05 (0.00-0.50) K/uL Baso # (Auto) 0.16 0.05 (0.00-0.20) K/uL Comprehensive Metabolic Panel 10/10/24 10/11/24 Range/Units 22:06 04:23 Sodium 141 139 (136-145) mmol/L Potassium 4.0 4.5 (3.5-5.1) mmol/L Chloride 108 H 110 H (98-107) mmol/L Carbon Dioxide 22 25 (21-32) mmol/L BUN 45 H 49 H (6-23) mg/dl Creatinine 1.70 H 1.70 H (0.6-1.4) mg/dl Glucose 216 H 201 H (70-99(Fasting)) mg/dl Calcium 9.1 8.1 L (8.6-10.3) mg/dl AST 23 (13-39) U/L ALT 27 (7-52) U/L Alkaline Phosphatase 148 H (34-104) U/L Total Protein 8.9 H (6.0-8.3) gm/dl Albumin 4.5 (3.4-5.0) gm/dl Intake and Output 10/10/24 10/11/24 10/11/24 22:59 06:59 14:59 Intake Total 0.193 / 273.033 272.840 / 273.033 113.667 / 113.667 Output Total 1225 / 1225 Balance 0.193 / -951.967 -952.160 / -951.967 113.667 / 113.667 Intake: IV 0.193 / 273.033 272.840 / 273.033 113.667 / 113.667 Heparin 52996 Unit/500 ml D5w 89 / 89 25,000 units In 500 ml @ 1,000 UNITS/HR 20 mls/hr IV .Q24H [facility] Rx#:[id number] Magnesium Sulfate / D5w 1 gm In 100 / 100 100 ml @ 50 mls/hr IV Q2H [facility] Rx#:[id number] fentaNYL citrate 2,500 mcg In 30.709 / 30.709 250 ml @ 50 MCG/HR 5 mls/hr IV .Q50H [facility] Rx#:[id number] propofoL 1,000 mg In 100 ml @ 0.193 / 153.324 153.131 / 153.324 13.667 / 13.667 35 MCG/KG/MIN 20.013 mls/hr IV .Q5H [facility] Rx#:[id number] Oral 0 / 0 Output: Urine Amount (Catheter) 1225 / 1225 Temp Sensing Bill[place] 1225 / 1225 Other: Weight 95.3 kg 91.7 kg Weight Measurement Method Built in [facility] Built in [facility]
[2024-10-11 09:35] LABS: ANTI-Xa, UFH(UnfractionatedHep 0.29 IU/ml (0.3-0.7)
[2024-10-11] MEDS: BUMETANIDE 2 MG in SYRINGE 0 ML IV STA (09:57)
[2024-10-11] MEDS: ONDANSETRON INJ 2 MG/ML 2 ML VIAL ONE (10:18)
[2024-10-11] MEDS: ONDANSETRON INJ 2 MG/ML 2 ML VIAL IV PRN (10:20)
--- NOTE | 2024-10-11 10:26 | Pharmacy Report ---
Pharmacy Glycemic Short Note 2 - Date of Service October 11, 2024 - Glycemic Short BSG Results (Last 24 hours): 10/10/24 10/10/24 10/11/24 22:06 22:14 02:34 Glucose 216 H POC Glucose 189 H POC Glucose (other) 219 H 10/11/24 04:23 Glucose 201 H POC Glucose POC Glucose (other) OUTPATIENT ANTIDIABETIC REGIMEN: * Tresiba 52 units SC daily * Novolog 15 units SC daily with breakfast HbA1c: * 7.2% (10/11/24) ASSESSMENT: * 74 yo M admitted on 10/10/24 secondary to chest pain and respiratory failure. Pharmacy has been consulted to assist with inpatient glycemic management. Patient is a Type 2 diabetic as an outpatient. Please refer to outpatient regimen and most recent HbA1c above. * BSGs were in the 200s last night upon admission. Patient is NPO. Currently intubated and sedated on Fentanyl and Propofol drips. Heparin infusing for atrial fibrillation. Doxycycline IV and Ceftriaxone IV for possible pneumonia. Started on Novolog only, ordered q6 while NPO. * Received 1 unit for overnight coverage and 2 units this AM. Will tighten Novolog to reflect weight/stress of 3 and tighten goal range to 110-140 mg/dL with ultimate goal of maintaining BSGs less than 180 mg/dL. * While patient is NPO and intubated, will hold off on basal insulin for now. Monitor lunchtime BSG today and may add a small basal dose, if necessary. Plans for extubation at some point this AM so may have a diet started later this evening. PLAN FOR INPATIENT GLYCEMIC CONTROL: * Basal insulin * Holding for now * Consider giving 20 units SC x 1 dose at lunchtime if patient is extubated and BSG > 200 mg/dL * Bolus insulin * NovoLog per scale ACHS or Q6hrs while NPO * Goal Range: Low 110 mg/dL - High 140 mg/dL * Correction Factor: 15 mg/dL/unit * Nutritional / Prandial insulin per carb ratio of 1 unit per 5 grams CHO consumed
[2024-10-11 11:49] LABS: Hematocrit (blood only) 32.6 % (42.0-52.0); Hemoglobin 10.6 g/dl (14.0-18.0)
[2024-10-11] MEDS ORDERED: LANTUS PER UNIT CHARGE SC STA (11:52)
[2024-10-11] MEDS: TUBE FEEDING WATER FLUSH OG SCH (14:15)
[2024-10-11] MEDS: NITROGLYCERIN 2% OINTMENT 30GM TUBE EXT SCH (14:20)
[2024-10-11] MEDS: LANTUS PER UNIT CHARGE SC STA (14:20)
[2024-10-11] MEDS: NOVASOURCE RENAL 2.0 CAL 1000ML BAG OG SCH (15:29)
[2024-10-11] MEDS: ACETAMINOPHEN 1,000 MG/100 ML VIAL IV PRN (16:21)
[2024-10-11] MEDS: METOPROLOL TARTRATE 1 MG/ML VIAL IV SCH ×2 (16:21→23:35)
[2024-10-11 17:05] LABS: ANTI-Xa, UFH(UnfractionatedHep 0.21 IU/ml (0.3-0.7)
--- NOTE | 2024-10-11 17:05 | Communication Note ---
Date of Service: October 11, 2024 Evaluated patient at bedside. Currently intubated, but awake. Son at bedside. Communicating via clipboard and paper/ Denies any new concerns, just reporting irritation with ETT at this time and upset with sbt failure EXAM calm no distress, intubated, moving legs/arms, no focal deficits noted #Ventilatory dependent respiratory failure, multifactorial #Multifocal pneumonia #Pulmonary edema evaluation at this time consistent with congestive heart failure ongoing diuresis at this time with Bumex 2mg IV continue with empiric abx and follow infectious work up monitor fluid status #NSTEMI #Obstructive CAD s/p CABG (remote) s/p cardiac cath without acute thrombosis, bypass patent 90% distal left main 100% proximal LAD 100% proximal circumflex 100% mid RCA. Distal RCA retrofills via graft to RV branch with 100% occlusion prior to PDA. Per interventional cardiology: Grafts are widely patent and no clear acute high risk disease to explain patient's presentation; Distal RCA after graft anastomosis occluded. Suspect chronic but cant rule out acute. Continue heparin iso ?acute distal RCA Continue home dapt with asa/plavix #Acute on chronic heart failure with mildly reduced EF, 40-45% likely 2/2 ischemic cardiomyopathy Cardiology consulted, undergoing diuersis hold home 80mg lasix resume home meds as able #Bioprosthetic valve in place stable function on echo per cards #Paroxysmal a fib NSR as of now Home dosing Metoprolol 100mg BID XL monitor on telemetry rest of plan per hp Feeds: Started on tube feeds analgesia: Fentanyl sedation: propofol Turn every 2 hours per ICU GI ppx: lansoprazole started DVT: Heparin drip HOB > 30 degrees Abx as above, narrow as able Billings in place Bowel regimen as needed
[2024-10-11] MEDS: LANSOPRAZOLE 30 MG SOLTAB OG SCH (17:35)
[2024-10-11] MEDS: TUBE FEEDING WATER FLUSH GT ONE (18:28)
[2024-10-11] MEDS: METOPROLOL TARTRATE 1 MG/ML VIAL IV STA (21:23)
[2024-10-11 21:26] LABS: Influenza A PCR (Fusion) Negative (Negative); Influenza B PCR (Fusion) Negative (Negative); RSV PCR (Fusion) Negative (Negative)
[2024-10-12 00:22] LABS: ANTI-Xa, UFH(UnfractionatedHep 0.25 IU/ml (0.3-0.7)
[2024-10-12 05:13] LABS: Basophils # (auto) 0.03 K/uL (0.00-0.20); Basophils % (auto) 0.3 %; Eosinophils # (auto) 0.15 K/uL (0.00-0.50); Eosinophils % (auto) 1.4 %; Hematocrit (blood only) 31.2 % (42.0-52.0); Hemoglobin 10.1 g/dl (14.0-18.0); Immature Granulocytes # (auto) 0.05 K/uL (0.01-0.20); Immature Granulocytes % (auto) 0.5 %; Lymphocytes % (auto) 5.7 %; Mean Corpuscular Hemoglobin 29.1 pg (25.0-34.0); Mean Corpuscular Hgb Conc 32.4 g/dL (32.0-36.0); Mean Corpuscular Volume 89.9 fL (80.0-100.0); Monocytes # (auto) 0.67 K/uL (0.11-0.59); Monocytes % (auto) 6.4 %; Neutrophils # (auto) 9.03 K/uL (1.40-6.50); Neutrophils % (auto) 85.7 %; Platelet Count 142 K/uL (130-400); RDW Coefficient of Variation 15.9 % (11.5-14.5); RDW Standard Deviation 50.9 fL (36.4-46.3); Red Blood Count 3.47 M/uL (4.70-6.10); White Blood Count 10.53 K/ul (4.8-10.8)
[2024-10-12 05:28] LABS: BUN Creatinine Ratio 27.7 (10-20); Calcium 8.4 mg/dl (8.6-10.3); Creatinine Clr Calc Pharmacy 44.5 ml/min; Magnesium 2.1 mg/dl (1.7-2.4); Potassium 3.8 mmol/L (3.5-5.1)
[2024-10-12] MEDS: POTASSIUM CHLORIDE 20 MEQ/15 ML UDC PO STA (06:17)
[2024-10-12 07:03] LABS: ANTI-Xa, UFH(UnfractionatedHep 0.27 IU/ml (0.3-0.7)
--- NOTE | 2024-10-12 07:22 | Critical Care Progress Note ---
Date of Service October 12, 2024 Assessment & Plan (1) Hypoxic respiratory failure: (2) MILLI (acute kidney injury): (3) Paroxysmal A-fib: (4) CAD (coronary artery disease): (5) DMII (diabetes mellitus, type 2): (6) Multifocal pneumonia: (7) Elevated troponin: (8) CKD (chronic kidney disease): (9) Normocytic anemia: Plan Reason Critically Ill: 74 YOM presents with acute onset of chest pain was found to be hypoxic tachypneic tachycardic, was urgently intubated in ER and taken urgently to angio suite for cardiac angiography, which did not reveal acute thrombus for intervention. Patient now to the ICU intubated and sedated. Neuro - Sedation for mechanical ventilation CAM ICU: Negative Cardiac - chest pain, PAF, HX: CAD, Bioprosthetic AVR --Elevated troponins Likely type II AL Cardiac angiography 10/10/2024 without acute occlusive disease- no intervention - No pericardial effusion on cath EF 10/11/2024: EF 40-45%, moderate size hypokinesis of dyskinesis of apical, posterior as well as inferior wall, grade 2 diastolic dysfunction, bioprosthetic aortic valve, moderate concentric LVH -- S/p A-fib RVR with history of bioprosthetic aortic valve Continue with beta-blockers --History of coronary artery disease S/p bypass On aspirin and Plavix at home Respiratory - Acute hypoxic respiratory failure, abnormal CXR CT chest 10/11/2024 personally reviewed: Motion degraded study Interlobular thickening appreciated bilaterally Patchy opacities appreciated bilaterally upper and lower lobes Moderate bilateral pleural effusion Significant mucus in the trachea No significant mediastinal lymphadenopathy -- VDRF Likely secondary to multifocal pneumonia with pulmonary edema Continue with ventilatory support Keep RASS -1 Daily sedation holidays and SBT's Continue with broad-spectrum antibiotics Follow-up sputum culture GI - No acute needs RENAL/LYTES - MILLI on CKD -- MILLI --> improving Monitor BUN/creatinine Avoid nephrotoxic medications Strict ins and outs - No acute needs ENDO - DM-II - ICU hypoglycemia protocol HEME - -- Normocytic anemia monitor H&H Monitor H&H ID - --Multifocal pneumonia Procalcitonin 0.14 Continue with broad-spectrum antibiotics Leukocytosis could be reactive to acute presentation, continue to trend --Prophylaxis VTE: Heparin drip GI: Pantoprazole Lines: Peripheral Diet: N.p.o. Plan: In/out: -1.9 L, urine output 3250, -2.8 L since coming to the hospital Chest x-ray from today does show significant improvement bilateral alveolar opacities compared to the time of presentation Will give another Bumex 2 mg today Potassium being replaced Continue with antibiotics for total of 5 days Follow-up sputum culture DC Billings later today Trial of extubation today If the patient is successfully extubated then will resume all the home blood pressure medications. Case discussed with cardiology I have personally spent 38 minutes of critical care time in the direct management of this patient. This is a life/limb threatening event. This includes time spent evaluating patient, direct bedside care, chart review, placing orders, interpretation of diagnostic studies, discussion with consultants, patient, and family members, as well as other required patient management activities. This time is exclusive of all separately billable procedures, and separate from and in addition to any other critical care service time. Thank you for allowing us to participate in the care of this patient. Please refer to my attending physician's documentation for any further recommendations. Admission and Anticipated Discharge Date Admission Date: October 10, 2024 Subjective Patient seen and examined at bedside. No acute distress, no adverse events overnight He was on pressure support at time of examination 01/21 with 30% FiO2. Saturating 93-94%. Respirated was in the mid to high teens. Systolic blood pressure was in the 160s with heart rate in the mid 70s Denied any headache, no chest pain, no abdominal pain Denied any nausea today. No sore throat. Tmax 38 Review of Systems 2 Review of Systems: All systems reviewed & are unremarkable except as noted in Subjective Physical Exam 2 Physical Exam: Constitutional: No acute distress HEENT: PERRLA Respiratory system: Decreased air entry bilaterally, no wheeze, no rhonchi, positive crackles bilaterally CVS: S1-S2 positive, no murmurs or gallops Abdomen: Soft, nontender, nondistended, positive bowel sounds x4 Extremities: +2 pulses bilaterally radialis/ dorsalis pedis, no cyanosis, no edema Neuro: RASS -1, moving all extremities to command Psych: Normal mood and affect G/U: Positive Billings Skin: no rashes, warm and dry Lymphatic: no cervical or axillary lymphadenopathy Results & Data Results & Data Vital Signs (Past 12 Hours) Vital Signs Temp Pulse Resp BP Pulse Ox Pulse Ox O2 Del Method 10/12/24 06:33 37.4 C 79 26 H 96 10/12/24 06:30 155/91 H 10/12/24 06:30 155/91 H 10/12/24 06:30 155/91 H 10/12/24 06:18 37.4 C 73 25 H 96 10/12/24 06:00 155/78 H 10/12/24 05:30 167/77 H 10/12/24 05:12 37.4 C 72 22 93 10/12/24 04:31 157/73 H 10/12/24 04:31 157/73 H 10/12/24 04:30 37.6 C H 78 25 H 91 10/12/24 04:18 37.7 C H 79 26 H 91 10/12/24 04:00 161/79 H 10/12/24 04:00 10/12/24 03:57 37.7 C H 89 23 95 10/12/24 03:41 177/88 H 10/12/24 03:41 177/88 H 10/12/24 03:40 93 H 22 91 10/12/24 03:39 37.7 C H 92 H 35 H 93 10/12/24 03:30 92 H 180/111 H 10/12/24 03:30 180/111 H 10/12/24 03:30 180/111 H 10/12/24 03:30 180/111 H 10/12/24 03:27 37.8 C H 102 H 26 H 91 10/12/24 03:13 81 156/72 H 10/12/24 03:12 37.8 C H 81 19 95 10/12/24 03:00 156/72 H 10/12/24 03:00 156/72 H 10/12/24 02:57 37.8 C H 79 21 95 10/12/24 02:33 37.8 C H 76 23 95 10/12/24 02:30 157/68 H 10/12/24 02:30 157/68 H 10/12/24 02:24 37.8 C H 73 22 95 10/12/24 02:03 37.9 C H 71 16 96 10/12/24 02:01 160/70 H 10/12/24 01:48 37.9 C H 67 24 95 10/12/24 01:30 37.8 C H 65 23 95 10/12/24 01:30 128/60 10/12/24 01:30 128/60 10/12/24 01:30 128/60 10/12/24 01:15 37.8 C H 65 22 95 10/12/24 01:00 129/64 10/12/24 01:00 129/64 10/12/24 01:00 129/64 10/12/24 00:57 37.9 C H 64 23 94 10/12/24 00:33 37.9 C H 67 25 H 94 10/12/24 00:30 135/60 10/12/24 00:27 37.9 C H 65 24 94 10/12/24 00:17 94 10/12/24 00:17 71 10/12/24 00:13 72 157/98 H 10/12/24 00:03 37.9 C H 75 23 93 10/12/24 00:01 157/98 H 10/12/24 00:01 157/98 H 10/12/24 00:00 37.9 C H 78 18 93 10/12/24 00:00 10/11/24 23:35 74 166/94 H 10/11/24 23:33 37.9 C H 81 33 H 96 10/11/24 23:30 166/94 H 10/11/24 23:30 166/94 H 10/11/24 23:30 166/94 H 10/11/24 23:27 37.9 C H 76 24 97 10/11/24 23:21 37.9 C H 77 25 H 95 10/11/24 23:00 83 24 95 10/11/24 23:00 163/71 H 10/11/24 22:48 37.7 C H 71 24 97 10/11/24 22:45 37.7 C H 71 24 97 10/11/24 22:31 70 149/75 H 10/11/24 22:03 37.7 C H 77 25 H 95 10/11/24 22:00 159/85 H 10/11/24 22:00 159/85 H 10/11/24 21:54 37.7 C H 71 23 95 10/11/24 21:51 CPAP 10/11/24 21:36 37.7 C H 74 23 94 10/11/24 21:30 156/71 H 10/11/24 21:30 156/71 H 10/11/24 21:24 37.7 C H 81 17 95 10/11/24 21:23 80 162/75 H 10/11/24 21:01 162/75 H 10/11/24 21:01 162/75 H 10/11/24 20:58 87 29 H 92 10/11/24 20:51 37.7 C H 79 30 H 95 10/11/24 20:31 157/101 H 10/11/24 20:31 157/101 H 10/11/24 20:30 37.7 C H 83 15 95 10/11/24 20:08 79 161/97 H 10/11/24 20:03 37.7 C H 79 22 93 10/11/24 20:00 161/97 H 10/11/24 20:00 10/11/24 19:57 37.7 C H 84 21 90 10/11/24 19:47 82 154/70 H 10/11/24 19:30 37.7 C H 77 23 94 10/11/24 19:30 154/70 H 10/11/24 19:30 154/70 H O2 Del Method FiO2 10/12/24 06:33 10/12/24 06:30 10/12/24 06:30 10/12/24 06:30 10/12/24 06:18 10/12/24 06:00 10/12/24 05:30 10/12/24 05:12 10/12/24 04:31 10/12/24 04:31 10/12/24 04:30 10/12/24 04:18 10/12/24 04:00 10/12/24 04:00 10/12/24 03:57 10/12/24 03:41 10/12/24 03:41 10/12/24 03:40 10/12/24 03:39 10/12/24 03:30 10/12/24 03:30 10/12/24 03:30 10/12/24 03:30 10/12/24 03:27 10/12/24 03:13 10/12/24 03:12 10/12/24 03:00 10/12/24 03:00 10/12/24 02:57 10/12/24 02:33 10/12/24 02:30 10/12/24 02:30 10/12/24 02:24 10/12/24 02:03 10/12/24 02:01 10/12/24 01:48 10/12/24 01:30 10/12/24 01:30 10/12/24 01:30 10/12/24 01:30 10/12/24 01:15 10/12/24 01:00 10/12/24 01:00 10/12/24 01:00 10/12/24 00:57 10/12/24 00:33 10/12/24 00:30 10/12/24 00:27 10/12/24 00:17 CPAP 10/12/24 00:17 10/12/24 00:13 10/12/24 00:03 10/12/24 00:01 10/12/24 00:01 10/12/24 00:00 10/12/24 00:00 10/11/24 23:35 10/11/24 23:33 10/11/24 23:30 10/11/24 23:30 10/11/24 23:30 10/11/24 23:27 10/11/24 23:21 10/11/24 23:00 10/11/24 23:00 10/11/24 22:48 10/11/24 22:45 10/11/24 22:31 10/11/24 22:03 10/11/24 22:00 10/11/24 22:00 10/11/24 21:54 10/11/24 21:51 10/11/24 21:36 10/11/24 21:30 10/11/24 21:30 10/11/24 21:24 10/11/24 21:23 10/11/24 21:01 10/11/24 21:01 10/11/24 20:58 24 10/11/24 20:51 10/11/24 20:31 10/11/24 20:31 10/11/24 20:30 10/11/24 20:08 10/11/24 20:03 10/11/24 20:00 10/11/24 20:00 0.24 10/11/24 19:57 10/11/24 19:47 10/11/24 19:30 10/11/24 19:30 10/11/24 19:30 Laboratory Results 10/12/24 04:35 10/12/24 04:35 Coding Level of Care Code 68125 CRITICAL CARE 1ST 30-74M Diagnoses Hypoxic respiratory failure J96.91 MILLI (acute kidney injury) N17.9 Paroxysmal A-fib I48.0 CAD (coronary artery disease) I25.10 DMII (diabetes mellitus, type 2) E11.9 Multifocal pneumonia J18.9 Elevated troponin R79.89 CKD (chronic kidney disease) N18.9 Normocytic anemia D64.9
[2024-10-12 07:50] LABS: Phosphorus 3.2 mg/dl (2.5-4.9)
--- NOTE | 2024-10-12 07:54 | XRay Report ---
EXAM: XR chest 1V portable CLINICAL HISTORY: eval tubes/lines/lung ruvalcaba TECHNIQUE: An X-ray image of the chest is obtained in AP projection. COMPARISON: 10/10/2024 23:45:00 TANK HOOP BENDER, and 10/11/2024 CT reviewed. FINDINGS: Interval stable, endotracheal tube appears to be in the high position, lies approximately 7.6 cm above the blossom. NG tube seen, reaching left infra-diaphragmatic Pulmonary parenchyma: Interval regressed, bilateral, few ill-defined perihilar and lower zones opacities seen. No evidence of pleural effusion or pleural thickening. The left mid chest tube seen in the previous imaging dated 10/10/2024 is not visualized, a linear chest tube shadow seen overlying the left hemithorax. Heart and Mediastinum: Heart size and shape are normal. No mediastinal widening or masses. No hilar or mediastinal lymphadenopathy. Bony Thorax: Bony thorax appears intact without fractures or deformities. Sternotomy sutures seen in situ. Soft Tissues: Soft tissues overlying the chest wall are unremarkable. IMPRESSION: 1. An endotracheal tube seen which is approximately 7.6 cm above the blossom. (unchanged). 2. NG tube seen, left infradiaphragmatic. (unchanged). 3. Interval regressed few bilateral ill-defined perihilar and lower zone opacities. possibly resolving pulmonary edema. 4. Comparing the previous x-ray dated 10/10/2024 there is marked interval regression in the bilateral pulmonary opacities. Electronically signed by Juan Carlos Mckoy 10-12-2024 07:53 AM
[2024-10-12] MEDS: LANTUS PER UNIT CHARGE SC SCH (08:23)
[2024-10-12] MEDS: FOLIC ACID 1 MG TAB PO SCH (12:20)
[2024-10-12] MEDS: ASPIRIN 81 MG ECTAB PO SCH (12:20)
[2024-10-12] MEDS: ISOSORBIDE MONO EXTENDED REL 60 MG TABCR PO SCH (12:20)
[2024-10-12] MEDS: TAMSULOSIN HCL 0.4 MG CAP PO SCH (12:20)
[2024-10-12] MEDS: CLOPIDOGREL BISULFATE 75 MG TAB PO SCH (12:20)
[2024-10-12] MEDS: BUMETANIDE 2 MG in SYRINGE 0 ML IV ONE (12:20)
[2024-10-12] MEDS: lisinopril 10 MG TAB PO SCH (12:21)
--- NOTE | 2024-10-12 12:47 | Cardiology Progress Note ---
Date of Service October 12, 2024 Assessment & Plan (1) Hypoxic respiratory failure: (2) Elevated troponin: (3) Paroxysmal A-fib: (4) Multifocal pneumonia: Plan Assessment: 74 year old male presents in acute hypoxic respiratory failure requiring intubation. EKG with new onset A-fib with RVR, troponin elevation and subsequently taken to the catheterization lab. Cardiology requested for ongoing assessment and recommendations. Plan: 1. Acute Hypoxic respiratory failure: -Multifactorial -patient's Chest xray and CT scan concerning for pulmonary edema -WBC count elevated with evidence of patchy consolidation concern for an acute infectious process/multifocal pneumonia. Ongoing management per extrusion machine operator/primary team with antibiotics -Blood cultures pending -Patient remains intubated as managed by extrusion machine operator/pulmonology team. -Patient is on Lasix 80mg PO QD at home. He received a one time dose of IV lasix in the ER and this morning has received Bumex 2mg IV x1 dose today. Agree with plan and will reassess fluid status in the AM -Strict I&O as well as daily weights. -Close monitoring of renal function as well as goal serum K > 4.0 and serum Mag > 2.0. IV mag supplementation today as ordered 2. Elevated Troponin, Type II demand ischemia -In the setting of acute hypoxic resp. failure requiring intubation -Cardiac cath with no acute thrombosis or lesion identified. Bypass grafts patent -Troponin now trending down -Patient remains chest pain free -Continue heparin gtt -H/H noted to have declined today, plan to recheck this evening per primary team. -No notation of luis angel bleeding. -BP stable, but may give consideration to adding a topical nitrate for BP control if needed. Patient is on a high dose of PO long-acting nitrate outpatient. -Recommend that patient receive beta deion in IV form as he currently is intubated and does not have an OG tube. Consider IV Lopressor 2.5mg PO Q6H. -EKG today. completed -Oral medications current on hold due to intubation 3. Paroxysmal Atrial fibrillation -Converted during course of cardiac cath. -Patient is on a substantial home dose of Toprol xl (100mg PO BID), would recommend that he be placed on IV lopressor 2.5mg Q6H while not taking PO for rate control in the setting of recent a-fib and elevated troponin with known significant cardiac disease -Continue Heparin gtt at this time. Monitor H/H closely. 4. Multifocal pneumonia -As stated above part of reason for acute resp failure. 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 Acute hypoxic respiratory failure: Mixed etiology with definite volume overload pulmonary edema possibly superimposed on pneumonia. Heart failure in part likely precipitated by atrial fibrillation with rapid response Diuretics to continue. Will consider spironolactone orally as clinical status and renal function stabilizes 2. Paroxysmal atrial fibrillation with spontaneous conversion to sinus rhythm during initial treatments. Plan chronic anticoagulation if recurrence add amiodarone given poor tolerance 3. Severe point hope ira vessel coronary artery disease with intact coronary bypass grafts. Cath performed this admission with severe narrow caliber point hope ira vessel coronary disease. Ultimate goal is continued medical therapy. Reviewed with primary plant maintenance manager office cath report similar to prior study of January 2024 4. Bioprosthetic aortic valve with mild elevation in valve velocities but no high-grade obstruction 5. Longstanding hypertension with hypertensive heart disease: Medications to be resumed today with patient on multiple drug regimen. Discontinue topical nitrates Admission and Anticipated Discharge Date Admission Date: October 10, 2024 Subjective Patient was seen and personally examined. Awake alert answering questions. Currently on BiPAP at time of examination but with plans to wean. No chest pains dizziness or lightheadedness. Brisk diuresis overnight Physical Exam Constitutional: well developed, well nourished and + mechanically ventilated; no acute distress Neck: normal visual inspection and trachea midline Respiratory: symmetric chest movement (currently mechanical ventilated ); no respiratory distress, no cough and no audible wheezes Auscultation: lungs clear to auscultation bilaterally and + diminished lung sounds (bilateral bases ); no crackles, no rales, no rhonchi and no wheezes Cardiovascular: Rate/Rhythm: regular rate and regular rhythm; not bradycardic Heart Sounds: normal S1, normal S2 and + murmur (+1/6 systolic ) Vessels: dorsalis pedis pulses present; no JVD Extremities: no edema Skin: no rashes, warm and dry Psychiatric: Orientation: alert Results & Data Vital Signs (Past 12 Hours) Vital Signs Temp Pulse Resp BP Pulse Ox O2 Del Method FiO2 10/12/24 09:21 BiPAP 0.24 10/12/24 07:55 69 22 93 24 10/12/24 07:51 71 167/79 H 10/12/24 07:36 76 166/77 H 10/12/24 06:33 37.4 C 79 26 H 96 10/12/24 06:30 155/91 H 10/12/24 06:30 155/91 H 10/12/24 06:30 155/91 H 10/12/24 06:18 37.4 C 73 25 H 96 10/12/24 06:00 155/78 H 10/12/24 05:30 167/77 H 10/12/24 05:12 37.4 C 72 22 93 10/12/24 04:31 157/73 H 10/12/24 04:31 157/73 H 10/12/24 04:30 37.6 C H 78 25 H 91 10/12/24 04:18 37.7 C H 79 26 H 91 10/12/24 04:00 161/79 H 10/12/24 04:00 24 10/12/24 03:57 37.7 C H 89 23 95 10/12/24 03:41 177/88 H 10/12/24 03:41 177/88 H 10/12/24 03:40 93 H 22 91 24 10/12/24 03:39 37.7 C H 92 H 35 H 93 10/12/24 03:30 92 H 180/111 H 10/12/24 03:30 180/111 H 10/12/24 03:30 180/111 H 10/12/24 03:30 180/111 H 10/12/24 03:27 37.8 C H 102 H 26 H 91 10/12/24 03:13 81 156/72 H 10/12/24 03:12 37.8 C H 81 19 95 10/12/24 03:00 156/72 H 10/12/24 03:00 156/72 H 10/12/24 02:57 37.8 C H 79 21 95 10/12/24 02:33 37.8 C H 76 23 95 10/12/24 02:30 157/68 H 10/12/24 02:30 157/68 H 10/12/24 02:24 37.8 C H 73 22 95 10/12/24 02:03 37.9 C H 71 16 96 10/12/24 02:01 160/70 H 10/12/24 01:48 37.9 C H 67 24 95 10/12/24 01:30 37.8 C H 65 23 95 10/12/24 01:30 128/60 10/12/24 01:30 128/60 10/12/24 01:30 128/60 10/12/24 01:15 37.8 C H 65 22 95 10/12/24 01:00 129/64 10/12/24 01:00 129/64 10/12/24 01:00 129/64 10/12/24 00:57 37.9 C H 64 23 94 Laboratory Results Laboratory Results - last 24 hr 10/11/24 10/11/24 10/11/24 11:28 15:56 17:00 WBC RBC Hgb Hct MCV MCH MCHC RDW Std Deviation RDW Coeff of Jose Plt Count MPV Immature Gran % (Auto) Neut % (Auto) Lymph % (Auto) Swisher % (Auto) Eos % (Auto) Baso % (Auto) Neut # (Auto) Lymph # (Auto) Swisher # (Auto) Eos # (Auto) Baso # (Auto) Immature Gran # (Auto) Heparin Anti-Xa, Unfract 0.21 L Sodium Potassium Chloride Carbon Dioxide Anion Gap BUN Creatinine Est Cr Clr Drug Dosing eGFR BUN/Creatinine Ratio Glucose POC Glucose Calcium Phosphorus Magnesium Troponin I High Sens 885082.2 H* D Influenza A (RT-PCR) Negative Influenza B (RT-PCR) Negative RSV (RT-PCR) Negative 10/11/24 10/11/24 10/11/24 17:07 17:14 23:38 WBC RBC Hgb Hct MCV MCH MCHC RDW Std Deviation RDW Coeff of Jose Plt Count MPV Immature Gran % (Auto) Neut % (Auto) Lymph % (Auto) Swisher % (Auto) Eos % (Auto) Baso % (Auto) Neut # (Auto) Lymph # (Auto) Swisher # (Auto) Eos # (Auto) Baso # (Auto) Immature Gran # (Auto) Heparin Anti-Xa, Unfract 0.25 L Sodium Potassium Chloride Carbon Dioxide Anion Gap BUN Creatinine Est Cr Clr Drug Dosing eGFR BUN/Creatinine Ratio Glucose POC Glucose 146 H Calcium Phosphorus Magnesium Troponin I High Sens 22535.8 H* D Influenza A (RT-PCR) Influenza B (RT-PCR) RSV (RT-PCR) 10/11/24 10/12/24 10/12/24 23:43 04:35 06:31 WBC 10.53 RBC 3.47 L Hgb 10.1 L Hct 31.2 L MCV 89.9 MCH 29.1 MCHC 32.4 RDW Std Deviation 50.9 H RDW Coeff of Jose 15.9 H Plt Count 142 MPV 11.0 Immature Gran % (Auto) 0.5 Neut % (Auto) 85.7 Lymph % (Auto) 5.7 Swisher % (Auto) 6.4 Eos % (Auto) 1.4 Baso % (Auto) 0.3 Neut # (Auto) 9.03 H Lymph # (Auto) 0.60 L Swisher # (Auto) 0.67 H Eos # (Auto) 0.15 Baso # (Auto) 0.03 Immature Gran # (Auto) 0.05 Heparin Anti-Xa, Unfract 0.27 L Sodium 140 Potassium 3.8 Chloride 109 H Carbon Dioxide 28 Anion Gap 3 BUN 43 H Creatinine 1.55 H Est Cr Clr Drug Dosing 44.5 eGFR 46.10 BUN/Creatinine Ratio 27.7 H Glucose 205 H POC Glucose 157 H Calcium 8.4 L Phosphorus 3.2 Magnesium 2.1 Troponin I High Sens Influenza A (RT-PCR) Influenza B (RT-PCR) RSV (RT-PCR) 10/12/24 11:57 WBC RBC Hgb Hct MCV MCH MCHC RDW Std Deviation RDW Coeff of Jose Plt Count MPV Immature Gran % (Auto) Neut % (Auto) Lymph % (Auto) Swisher % (Auto) Eos % (Auto) Baso % (Auto) Neut # (Auto) Lymph # (Auto) Swisher # (Auto) Eos # (Auto) Baso # (Auto) Immature Gran # (Auto) Heparin Anti-Xa, Unfract Sodium Potassium Chloride Carbon Dioxide Anion Gap BUN Creatinine Est Cr Clr Drug Dosing eGFR BUN/Creatinine Ratio Glucose POC Glucose 145 H Calcium Phosphorus Magnesium Troponin I High Sens Influenza A (RT-PCR) Influenza B (RT-PCR) RSV (RT-PCR)
[2024-10-12 16:59] LABS: ANTI-Xa, UFH(UnfractionatedHep 0.27 IU/ml (0.3-0.7)
--- NOTE | 2024-10-12 17:46 | Hospitalist Progress Note ---
Date of Service October 12, 2024 Assessment & Plan (1) Hypoxic respiratory failure: Plan: Mr. Gonzalez is a 74-year-old male from [facility] visiting [place] with past medical history significant for diabetes, CAD status post CABG, hypertension, GERD, BPH hyperlipidemia presents with respiratory distress and chest pain. Patient admitted to ICU s/p intubation for VDRF due to acute heart failure exacerbation and possible superimposed pneumonia. #Ventilatory dependent respiratory failure, multifactorial s/p extubation 10/12 #Multifocal pneumonia #Pulmonary edema evaluation at this time consistent with congestive heart failure CXR with improved opacities extubated this am and now on NC 2L wean o2 as able continue abx diuresis as tolerated #NSTEMI #Obstructive CAD s/p CABG (remote) s/p cardiac cath without acute thrombosis, bypass patent 90% distal left main 100% proximal LAD 100% proximal circumflex 100% mid RCA. Distal RCA retrofills via graft to RV branch with 100% occlusion prior to PDA. Per interventional cardiology: Grafts are widely patent and no clear acute high risk disease to explain patient's presentation; Distal RCA after graft anastomosis occluded. Suspect chronic but cant rule out acute. Continue heparin iso ?acute distal RCA as well as PAF Continue home dapt with asa/plavix #Acute on chronic heart failure with mildly reduced EF, 40-45% #HTN likely 2/2 ischemic cardiomyopathy Cardiology consulted, undergoing diuersis hold home 80mg lasix resume home meds as able, consider addition spironolactone per Cardiology lisinopril 10mg resumed imdur 120mg daily resumed nifedipine 60mg bid resumed #Bioprosthetic valve in place stable function on echo per cards #Paroxysmal a fib NSR as of now Home dosing Metoprolol 100mg BID XL monitor on telemetry plan for DOAC #Diabetes Sliding scale #possible MILLI creatinine 1.7--down to 1.55 No known baseline To avoid nephrotoxic agents Will monitor #Hyperlipidemia On statin #BPH On Flomax #GERD On Protonix DVT prophylaxis On IV heparin PT/OT - Feeds: liquid diet analgesia: tylenol prn sedation: discontinued GI ppx pantoprazole DVT: Heparin drip HOB > 30 degrees Abx as above, narrow as able Billings in place, remove today Bowel regimen as needed Admission and Anticipated Discharge Date Admission Date: October 10, 2024 Subjective extubated this am Reports feeling much better overall since extubation, still some dyspnea but otherwise feels markedly improved in comparison to admission Physical Exam Constitutional: WD/WN, vitals as above Respiratory: diminished but no distress noted with inhalation/exhalation Cardiovascular: rrr MONO+ Gastrointestinal (Abdomen): normal bowel sounds, soft, nontender, no hepatosplenomegaly Results & Data Results & Data Vital Signs (Past 12 Hours) Vital Signs Temp Pulse Resp BP Pulse Ox O2 Del Method O2 Flow Rate 10/12/24 15:09 37.9 C H 88 25 H 93 Nasal Cannula 2 10/12/24 15:00 144/67 H 10/12/24 14:48 37.8 C H 80 28 H 94 10/12/24 14:30 37.8 C H 90 23 94 10/12/24 14:30 156/98 H 10/12/24 14:30 156/98 H 10/12/24 14:00 37.7 C H 83 21 95 BiPAP 10/12/24 14:00 158/62 H 10/12/24 14:00 158/62 H 10/12/24 14:00 158/62 H 10/12/24 14:00 158/62 H 10/12/24 13:30 159/65 H 10/12/24 13:30 159/65 H 10/12/24 13:24 37.6 C H 75 26 H 95 10/12/24 13:00 157/82 H 10/12/24 13:00 37.5 C 81 21 94 10/12/24 12:31 162/87 H 10/12/24 12:31 162/87 H 10/12/24 12:24 37.5 C 78 26 H 92 10/12/24 12:03 37.5 C 79 28 H 92 10/12/24 12:00 163/125 H 10/12/24 12:00 163/125 H 10/12/24 11:57 37.5 C 83 16 92 10/12/24 11:30 172/73 H 10/12/24 11:30 172/73 H 10/12/24 11:27 37.4 C 81 18 92 10/12/24 11:21 37.4 C 82 21 89 L 10/12/24 11:00 160/74 H 10/12/24 11:00 160/74 H 10/12/24 10:39 37.4 C 81 20 96 10/12/24 10:30 164/71 H 10/12/24 10:30 37.4 C 77 25 H 95 10/12/24 10:01 172/82 H 10/12/24 10:01 172/82 H 10/12/24 10:01 172/82 H 10/12/24 10:00 37.4 C 77 19 95 10/12/24 09:30 161/75 H 10/12/24 09:30 161/75 H 10/12/24 09:30 161/75 H 10/12/24 09:21 BiPAP 10/12/24 09:03 37.4 C 73 17 95 10/12/24 09:00 37.4 C 71 23 96 10/12/24 09:00 164/69 H 10/12/24 09:00 164/69 H 10/12/24 09:00 164/69 H 10/12/24 08:30 164/71 H 10/12/24 08:30 164/71 H 10/12/24 08:24 37.4 C 69 22 96 10/12/24 08:03 37.4 C 71 18 95 10/12/24 08:00 167/79 H 10/12/24 08:00 167/79 H 10/12/24 07:55 69 22 93 10/12/24 07:51 71 167/79 H 10/12/24 07:36 76 166/77 H 10/12/24 06:33 37.4 C 79 26 H 96 10/12/24 06:30 155/91 H 10/12/24 06:30 155/91 H 10/12/24 06:30 155/91 H 10/12/24 06:18 37.4 C 73 25 H 96 10/12/24 06:00 155/78 H FiO2 10/12/24 15:09 10/12/24 15:00 10/12/24 14:48 10/12/24 14:30 10/12/24 14:30 10/12/24 14:30 10/12/24 14:00 0.24 10/12/24 14:00 10/12/24 14:00 10/12/24 14:00 10/12/24 14:00 10/12/24 13:30 10/12/24 13:30 10/12/24 13:24 10/12/24 13:00 10/12/24 13:00 10/12/24 12:31 10/12/24 12:31 10/12/24 12:24 10/12/24 12:03 10/12/24 12:00 10/12/24 12:00 10/12/24 11:57 10/12/24 11:30 10/12/24 11:30 10/12/24 11:27 10/12/24 11:21 10/12/24 11:00 10/12/24 11:00 10/12/24 10:39 10/12/24 10:30 10/12/24 10:30 10/12/24 10:01 10/12/24 10:01 10/12/24 10:01 10/12/24 10:00 10/12/24 09:30 10/12/24 09:30 10/12/24 09:30 10/12/24 09:21 0.24 10/12/24 09:03 10/12/24 09:00 10/12/24 09:00 10/12/24 09:00 10/12/24 09:00 10/12/24 08:30 10/12/24 08:30 10/12/24 08:24 10/12/24 08:03 10/12/24 08:00 10/12/24 08:00 10/12/24 07:55 10/12/24 07:51 10/12/24 07:36 10/12/24 06:33 10/12/24 06:30 10/12/24 06:30 10/12/24 06:30 10/12/24 06:18 10/12/24 06:00 Laboratory Results Short CBC 10/12/24 Range/Units 04:35 WBC 10.53 (4.8-10.8) K/ul Hgb 10.1 L (14.0-18.0) g/dl Hct 31.2 L (42.0-52.0) % Plt Count 142 (130-400) K/uL BMP 10/12/24 04:35 Sodium 140 Potassium 3.8 Chloride 109 H Carbon Dioxide 28 BUN 43 H Creatinine 1.55 H Glucose 205 H Calcium 8.4 L Medications Administered Home Medications Medication Instructions Recorded Confirmed Last Taken Plavix 75 mg PO DAILY 10/10/24 10/10/24 Unknown Urocit-K 15 10/10/24 Unknown aspirin 81 mg capsule 81 mg PO DAILY 10/10/24 10/10/24 Unknown atorvastatin 80 mg tablet 80 mg PO HS 10/10/24 10/10/24 Unknown famotidine 40 mg tablet 40 mg PO DAILY 10/10/24 10/10/24 Unknown folic acid 1 mg tablet 1 mg PO DAILY 10/10/24 10/10/24 Unknown furosemide 80 mg tablet (Lasix) 80 mg PO DAILY 10/10/24 10/10/24 Unknown insulin aspart U-100 100 unit/mL 15 unit subcut DAILY 10/10/24 10/10/24 Unknown (3 mL) subcutaneous pen (Novolog FlexPen U-100 Insulin aspart) insulin degludec 100 unit/mL (3 52 unit subcut DAILY 10/10/24 10/10/24 Unknown mL) subcutaneous pen (Tresiba FlexTouch U-100 insulin) isosorbide mononitrate 120 mg 120 mg PO DAILY 10/10/24 10/10/24 Unknown tablet,extended release 24 hr lisinopril 10 mg tablet 10 mg PO DAILY 10/10/24 10/10/24 Unknown magnesium oxide 400 mg PO DAILY 10/10/24 10/10/24 Unknown metoprolol succinate 100 mg 100 mg PO BID 10/10/24 10/10/24 Unknown tablet,extended release 24 hr nifedipine 60 mg tablet,extended 60 mg PO BID 10/10/24 10/10/24 Unknown release pantoprazole 40 mg tablet,delayed 40 mg PO DAILY 10/10/24 10/10/24 Unknown release tamsulosin 0.4 mg capsule 0.4 mg PO DAILY 10/10/24 10/10/24 Unknown Active Medications Generic Name Dose Route Start Last Admin Trade Name Freq PRN Reason Stop Dose Admin Aspirin 81 mg 10/12/24 12:30 10/12/24 12:20 Aspirin 81 Mg Ectab PO 11/11/24 12:29 81 mg DAILY SOILA Administration Clopidogrel Bisulfate 75 mg 10/12/24 12:30 10/12/24 12:20 Clopidogrel Bisulfate 75 Mg Tab PO 11/11/24 12:29 75 mg DAILY SOILA Administration Folic Acid 1 mg 10/12/24 12:30 10/12/24 12:20 Folic Acid 1 Mg Tab PO 11/11/24 12:29 1 mg DAILY SOILA Administration Heparin Sodium/Dextrose 25,000 units in 500 mls @ 28 mls/hr 10/11/24 02:30 10/12/24 15:08 Heparin 32549 Unit/500 Ml D5w IV 11/10/24 01:29 Not Given .[id number] SOILA Protocol 1,400 UNITS/HR Ceftriaxone Sodium 2,000 mg in 50 mls @ 100 mls/hr 10/11/24 09:00 10/12/24 11:02 Rocephin IV 10/14/24 23:59 Infused Q24H SOILA Infusion Protocol Doxycycline Hyclate 100 mg/ 100 mls @ 50 mls/hr 10/11/24 08:00 10/12/24 11:02 Dextrose IV 10/15/24 23:59 Infused Q12H SOILA Infusion Acetaminophen 1,000 mg in 100 mls @ 400 mls/hr 10/11/24 15:26 10/12/24 17:07 Ofirmev IV 10/14/24 15:25 400 mls/hr Q8H PRN Administration Fever Insulin Glargine 10 units 10/12/24 09:00 10/12/24 08:23 Lantus Per Unit Charge SC 11/11/24 08:59 10 units DAILY SOILA Administration Isosorbide Mononitrate 120 mg 10/12/24 12:30 10/12/24 12:20 Isosorbide [place] Extended Rel 60 Mg Tabcr PO 11/11/24 12:29 120 mg DAILY SOILA Administration Lisinopril 10 mg 10/12/24 12:30 10/12/24 12:21 Lisinopril 10 Mg Tab PO 11/11/24 12:29 10 mg DAILY SOILA Administration Ondansetron HCl 4 mg 10/11/24 10:05 10/11/24 10:20 Ondansetron Inj 2 Mg/Ml 2 Ml Vial IV 11/10/24 10:04 4 mg Q4H PRN Administration Nausea Tamsulosin HCl 0.4 mg 10/12/24 12:30 10/12/24 12:20 Tamsulosin Hcl 0.4 Mg Cap PO 11/11/24 12:29 0.4 mg DAILY SOILA Administration
[2024-10-12] MEDS: CHLORASEPTIC (PHENOL) 1.4% SOLN 180 ML BTL MT PRN (18:49)
[2024-10-12] MEDS: INSULIN ASPART PER UNIT CHARGE SC SCH (20:37)
[2024-10-12] MEDS: ATORVASTATIN 40 MG TAB PO SCH (20:38)
[2024-10-12] MEDS: NIFEdipine EXTENDED REL 30 MG TABCR PO SCH (20:38)
[2024-10-12] MEDS: METOPROLOL SUCC 50MG EXT REL TAB PO SCH (20:38)
[2024-10-12] MEDS: DICLOFENAC SOD 1% GEL 100 GM TUBE EXT SCH (20:41)
[2024-10-13 05:12] LABS: Basophils # (auto) 0.03 K/uL (0.00-0.20); Basophils % (auto) 0.3 %; Eosinophils # (auto) 0.08 K/uL (0.00-0.50); Eosinophils % (auto) 0.7 %; Hematocrit (blood only) 27.6 % (42.0-52.0); Hemoglobin 8.8 g/dl (14.0-18.0); Immature Granulocytes # (auto) 0.06 K/uL (0.01-0.20); Immature Granulocytes % (auto) 0.5 %; Lymphocytes # (auto) 0.66 K/uL (1.20-3.40); Lymphocytes % (auto) 5.9 %; Mean Corpuscular Hemoglobin 28.3 pg (25.0-34.0); Mean Corpuscular Hgb Conc 31.9 g/dL (32.0-36.0); Mean Corpuscular Volume 88.7 fL (80.0-100.0); Mean Platelet Volume 11.3 fL (9.4-12.4); Monocytes # (auto) 0.87 K/uL (0.11-0.59); Monocytes % (auto) 7.8 %; Neutrophils % (auto) 84.8 %; Platelet Count 146 K/uL (130-400); RDW Coefficient of Variation 15.9 % (11.5-14.5); RDW Standard Deviation 50.5 fL (36.4-46.3); Red Blood Count 3.11 M/uL (4.70-6.10)
[2024-10-13 05:32] LABS: BUN Creatinine Ratio 25.5 (10-20); Creatinine Clr Calc Pharmacy 42.8 ml/min; Magnesium 1.8 mg/dl (1.7-2.4); Potassium 4.1 mmol/L (3.5-5.1)
[2024-10-13 05:42] LABS: ANTI-Xa, UFH(UnfractionatedHep 0.29 IU/ml (0.3-0.7)
--- NOTE | 2024-10-13 07:25 | Critical Care Progress Note ---
Date of Service October 13, 2024 Assessment & Plan (1) Hypoxic respiratory failure: (2) MILLI (acute kidney injury): (3) Paroxysmal A-fib: (4) CAD (coronary artery disease): (5) DMII (diabetes mellitus, type 2): (6) Multifocal pneumonia: (7) Elevated troponin: (8) CKD (chronic kidney disease): (9) Normocytic anemia: (10) Gout attack: Plan Reason Critically Ill: 74 YOM presents with acute onset of chest pain was found to be hypoxic tachypneic tachycardic, was urgently intubated in ER and taken urgently to angio suite for cardiac angiography, which did not reveal acute thrombus for intervention. Patient now to the ICU intubated and sedated. Neuro - [facility] ICU: Negative Cardiac - chest pain, PAF, HX: CAD, Bioprosthetic AVR --Elevated troponins Likely type II AK Cardiac angiography 10/10/2024 without acute occlusive disease- no intervention - No pericardial effusion on cath EF 10/11/2024: EF 40-45%, moderate size hypokinesis of dyskinesis of apical, posterior as well as inferior wall, grade 2 diastolic dysfunction, bioprosthetic aortic valve, moderate concentric LVH -- S/p A-fib RVR with history of bioprosthetic aortic valve Continue with beta-blockers --History of coronary artery disease S/p bypass On aspirin and Plavix at home Respiratory - Acute hypoxic respiratory failure, abnormal CXR CT chest 10/11/2024 personally reviewed: Motion degraded study Interlobular thickening appreciated bilaterally Patchy opacities appreciated bilaterally upper and lower lobes Moderate bilateral pleural effusion Significant mucus in the trachea No significant mediastinal lymphadenopathy -- S/p VDRF Extubated 10/12/2024 --Multilobar pneumonia Continue with antibiotics Sputum culture negative to date GI - No acute needs RENAL/LYTES - MILLI on CKD -- MILLI on CKD--> improving Monitor BUN/creatinine Avoid nephrotoxic medications Strict ins and outs - No acute needs ENDO - DM-II - ICU hypoglycemia protocol HEME - -- Normocytic anemia monitor H&H Monitor H&H -- Questionable history of gout Will give colchicine given the CKD Can consider allopurinol as an outpatient, will defer to primary team ID - --Multifocal pneumonia Procalcitonin 0.14 Continue with broad-spectrum antibiotics Leukocytosis could be reactive to acute presentation, continue to trend --Prophylaxis VTE: Heparin drip on hold GI: Pantoprazole Lines: Peripheral Diet: Cardiac Plan: In/out: -446, urine output 2049, - 3.2 L since coming to the hospital Tmax 37.8 There has been a drop in hemoglobin The patient is a negative balance. Will repeat H&H. Hold heparin drip Patient is complaining of diffuse lower extremity tenderness, there is no edema. No erythema or tenderness at the first toe. He did have elevated uric acid level couple of weeks ago. I will repeat the uric acid today. Will treat him as if he has acute gout flare with colchicine. Can consider allopurinol as an outpatient, will defer to primary team Magnesium being replaced Continue with antibiotics for total of 5 days Case discussed with cardiology Hemodynamically stable to be downgraded to medical floor Please note the above document was generated using voice recognition software. It may contain grammatical, syntax or spelling errors.Any formal questions or concerns about the content, text or information contained within the body of this dictation should be directly addressed to the provider for clarification. Admission and Anticipated Discharge Date Admission Date: October 10, 2024 Subjective Patient seen and examined at bedside. No acute distress, no adverse events overnight Unfortunately was not able to tolerate BiPAP overnight He was saturating 96-97% on 2 L nasal cannula, I went down to 1 L He was complaining of pain in his lower extremities and toes. No nausea vomiting Tolerating diet without any issues Denies any chest pain Shortness of breath is improved Review of Systems 2 Review of Systems: All systems reviewed & are unremarkable except as noted in Subjective Physical Exam 2 Physical Exam: Constitutional: No acute distress HEENT: PERRLA, EOMI Respiratory system: Decreased air entry bilaterally, no wheeze, no rhonchi, positive crackles bilaterally CVS: S1-S2 positive, positive 2 out of 6 systolic murmur appreciated best at aorta, accentuated P2 Abdomen: Soft, nontender, nondistended, positive bowel sounds x4 Extremities: +2 pulses bilaterally radialis/ dorsalis pedis, no cyanosis, no edema, no erythema or tenderness at the tarsometatarsal joints of bilateral lower extremities Neuro: Awake alert oriented x 3 Psych: Normal mood and affect G/U: No Billings Skin: no rashes, warm and dry Lymphatic: no cervical or axillary lymphadenopathy Results & Data Results & Data Vital Signs (Past 12 Hours) Vital Signs Temp Pulse Resp BP Pulse Ox Pulse Ox O2 Del Method 10/13/24 07:07 79 10/13/24 06:03 81 38 H 96 10/13/24 06:00 140/51 L 10/13/24 05:57 75 28 H 96 10/13/24 05:09 90 20 97 10/13/24 05:02 116/68 10/13/24 05:00 80 28 H 91 10/13/24 04:00 79 28 H 93 10/13/24 04:00 107/62 10/13/24 04:00 36.9 C 10/13/24 03:06 82 28 H 93 10/13/24 03:01 115/51 L 10/13/24 02:42 83 31 H 95 10/13/24 02:20 82 32 H 115/60 96 10/13/24 01:14 98 H 22 94 10/13/24 01:00 105/55 L 10/13/24 01:00 105/55 L 10/13/24 01:00 105/55 L 10/13/24 01:00 105/55 L 10/13/24 01:00 91 H 28 H 94 10/13/24 00:30 104 H 26 H 89 L 10/13/24 00:00 105/52 L 10/13/24 00:00 105/52 L 10/13/24 00:00 105/52 L 10/13/24 00:00 94 10/13/24 00:00 94 H 10/12/24 23:57 88 38 H 91 10/12/24 23:37 36.7 C 10/12/24 23:06 83 35 H 92 10/12/24 23:00 117/55 L 10/12/24 22:57 80 32 H 91 10/12/24 22:32 Nasal Cannula 10/12/24 22:03 81 33 H 94 10/12/24 22:00 132/59 L 10/12/24 22:00 132/59 L 10/12/24 21:57 82 33 H 94 10/12/24 21:09 89 28 H 94 10/12/24 21:00 144/61 H 10/12/24 21:00 144/61 H 10/12/24 20:45 95 H 24 95 10/12/24 20:12 87 31 H 10/12/24 20:00 133/56 L 10/12/24 20:00 37.0 C 10/12/24 19:48 103 H 25 H 10/12/24 19:43 133/62 10/12/24 19:43 133/62 10/12/24 19:39 85 27 H 96 10/12/24 19:30 83 25 H 96 O2 Del Method O2 Flow Rate O2 Flow Rate FiO2 10/13/24 07:07 10/13/24 06:03 10/13/24 06:00 10/13/24 05:57 10/13/24 05:09 10/13/24 05:02 10/13/24 05:00 10/13/24 04:00 10/13/24 04:00 10/13/24 04:00 10/13/24 03:06 10/13/24 03:01 10/13/24 02:42 10/13/24 02:20 10/13/24 01:14 24 10/13/24 01:00 10/13/24 01:00 10/13/24 01:00 10/13/24 01:00 10/13/24 01:00 10/13/24 00:30 10/13/24 00:00 10/13/24 00:00 10/13/24 00:00 10/13/24 00:00 Nasal Cannula 3 10/13/24 00:00 10/12/24 23:57 10/12/24 23:37 10/12/24 23:06 10/12/24 23:00 10/12/24 22:57 10/12/24 22:32 2 10/12/24 22:03 10/12/24 22:00 10/12/24 22:00 10/12/24 21:57 10/12/24 21:09 10/12/24 21:00 10/12/24 21:00 10/12/24 20:45 10/12/24 20:12 10/12/24 20:00 10/12/24 20:00 10/12/24 19:48 10/12/24 19:43 10/12/24 19:43 10/12/24 19:39 10/12/24 19:30 Laboratory Results 10/13/24 04:37 10/13/24 04:37 Coding Level of Care Code 57353 SUB INP/OBS CARE 3/50MIN Diagnoses Hypoxic respiratory failure J96.91 MILLI (acute kidney injury) N17.9 Paroxysmal A-fib I48.0 CAD (coronary artery disease) I25.10 DMII (diabetes mellitus, type 2) E11.9 Multifocal pneumonia J18.9 Elevated troponin R79.89 CKD (chronic kidney disease) N18.9 Normocytic anemia D64.9 Gout attack M10.9
[2024-10-13] MEDS: FUROSEMIDE 80 MG TAB PO SCH (08:03)
[2024-10-13] MEDS: PANTOprazole 40 MG TAB PO SCH (08:03)
[2024-10-13] MEDS: LANTUS PER UNIT CHARGE SC SCH (08:06)
[2024-10-13] MEDS: ACETAMINOPHEN 325 MG TAB PO STA (08:42)
[2024-10-13] MEDS: MAGNESIUM SULFATE / D5W 1 GM/100 ML BAG IV ONE ×2 (08:42→10:01)
[2024-10-13] MEDS: COLCHICINE 0.6 MG TAB PO STA (10:01)
[2024-10-13 10:12] LABS: Uric Acid 10.8 mg/dl (2.6-7.2)
--- NOTE | 2024-10-13 10:59 | Cardiology Progress Note ---
Date of Service October 13, 2024 Assessment & Plan (1) Hypoxic respiratory failure: (2) Elevated troponin: (3) Paroxysmal A-fib: (4) Multifocal pneumonia: Plan Assessment: 74 year old male presents in acute hypoxic respiratory failure requiring intubation. EKG with new onset A-fib with RVR, troponin elevation and subsequently taken to the catheterization lab. Cardiology requested for ongoing assessment and recommendations. Plan: 1. Acute Hypoxic respiratory failure: -Multifactorial -patient's Chest xray and CT scan concerning for pulmonary edema -WBC count elevated with evidence of patchy consolidation concern for an acute infectious process/multifocal pneumonia. 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 -Patient is on Lasix 80mg PO QD at home. He received a one time dose of IV lasix in the ER and this morning has received Bumex 2mg IV x1 dose today. Agree with plan and will reassess fluid status in the AM -Strict I&O as well as daily weights. -Close monitoring of renal function as well as goal serum K > 4.0 and serum Mag > 2.0. IV mag supplementation today as ordered 2. Elevated Troponin, Type II demand ischemia -In the setting of acute hypoxic resp. failure requiring intubation -Cardiac cath with no acute thrombosis or lesion identified. Bypass grafts patent -Troponin now trending down -Patient remains chest pain free -Continue heparin gtt -H/H noted to have declined today, plan to recheck this evening per primary team. -No notation of luis angel bleeding. -BP stable, but may give consideration to adding a topical nitrate for BP control if needed. Patient is on a high dose of PO long-acting nitrate outpatient. -Recommend that patient receive beta deion in IV form as he currently is intubated and does not have an OG tube. Consider IV Lopressor 2.5mg PO Q6H. -EKG today. completed -Oral medications current on hold due to intubation 3. Paroxysmal Atrial fibrillation -Converted during course of cardiac cath. -Patient is on a substantial home dose of Toprol xl (100mg PO BID), would recommend that he be placed on IV lopressor 2.5mg Q6H while not taking PO for rate control in the setting of recent a-fib and elevated troponin with known significant cardiac disease -Continue Heparin gtt at this time. Monitor H/H closely. 4. Multifocal pneumonia -As stated above part of reason for acute resp failure. -Ongoing management per primary/crawler tractor operator team Patient primary pole setter [facility] Davey Waller MD 10/12/2024 Clinically improved, extubated on BiPAP issues as follows 1. Acute hypoxic respiratory failure: Mixed etiology with definite volume overload pulmonary edema possibly superimposed on pneumonia. Heart failure in part likely precipitated by atrial fibrillation with rapid response Diuretics to continue. Will consider spironolactone orally as clinical status and renal function stabilizes 2. Paroxysmal atrial fibrillation with spontaneous conversion to sinus rhythm during initial treatments. [id number] 2 score of 5 Plan chronic anticoagulation if recurrence add amiodarone given poor tolerance 3. Severe redding vessel coronary artery disease with intact coronary bypass grafts. Cath performed this admission with severe narrow caliber redding vessel coronary disease. Ultimate goal is continued medical therapy. Reviewed with primary pole setter office cath report similar to prior study of January 2024 4. Bioprosthetic aortic valve with mild elevation in valve velocities but no high-grade obstruction 5. Longstanding hypertension with hypertensive heart disease: Medications to be resumed today with patient on multiple drug regimen. Discontinue topical nitrates 10/13/2024 1. Acute hypoxic respiratory failure: Mixed etiology with definite volume overload pulmonary edema possibly superimposed on pneumonia. Clinically improved still with moderate rhonchorous cough substantial improvement in oxygen demands Diuretics changed to oral 2. Paroxysmal atrial fibrillation with spontaneous conversion to sinus rhythm during initial treatments. Plan Change heparin to Eliquis hemoglobin diminished but stable 3. Severe redding vessel coronary artery disease with intact coronary bypass grafts. Cath performed this admission with severe narrow caliber redding vessel coronary disease. Ultimate goal is continued medical therapy. Reviewed with primary pole setter office cath report similar to prior study of January 2024 4. Bioprosthetic aortic valve with mild elevation in valve velocities but no high-grade obstruction, Peak aortic valve velocity 2.8 m/s 5. Longstanding hypertension with hypertensive heart disease: Medications to be resumed today with patient on multiple drug regimen. Admission and Anticipated Discharge Date Admission Date: October 10, 2024 Subjective Patient seen and examined, chart, medications, telemetry reviewed Sitting out of bed in chair. No further arrhythmias. Respiratory status improved still with cough moderately productive. No chest pains or discomfort no dizziness or lightheadedness. Complaints predominately of sore feet. Difficult pain with any pressure possible gout Review of Systems Review of Systems: All systems reviewed & are unremarkable except as noted in Subjective Physical Exam Constitutional: well developed and well nourished; no acute distress Neck: normal visual inspection and trachea midline Respiratory: symmetric chest movement (currently mechanical ventilated ); no respiratory distress, no cough and no audible wheezes Auscultation: + diminished lung sounds (bilateral bases ) and + rhonchi Few scattered rhonchi with cough right base Cardiovascular: Rate/Rhythm: regular rate and regular rhythm; not bradycardic Heart Sounds: normal S1, normal S2 and + murmur (+1/6 systolic ) Vessels: dorsalis pedis pulses present; no JVD Extremities: no edema Gastrointestinal (Abdomen): normal bowel sounds, soft, nontender, no hepatosplenomegaly Musculoskeletal: no cyanosis or clubbing, extremities motor strength 5/5 Skin: no rashes, warm and dry Psychiatric: Orientation: alert Results & Data Vital Signs (Past 12 Hours) Vital Signs Temp Pulse Pulse Resp BP BP Pulse Ox 10/13/24 10:08 63 20 99/48 L 92 10/13/24 09:02 36.5 C 10/13/24 08:06 80 30 H 92 10/13/24 08:02 120/61 95 10/13/24 08:02 120/61 10/13/24 08:00 10/13/24 07:57 76 24 95 10/13/24 07:18 75 20 92 10/13/24 07:07 79 10/13/24 07:00 125/75 10/13/24 07:00 125/75 10/13/24 06:03 81 38 H 96 10/13/24 06:00 140/51 L 10/13/24 05:57 75 28 H 96 10/13/24 05:09 90 20 97 10/13/24 05:02 116/68 10/13/24 05:00 80 28 H 91 10/13/24 04:00 79 28 H 93 10/13/24 04:00 107/62 10/13/24 04:00 36.9 C 10/13/24 03:06 82 28 H 93 10/13/24 03:01 115/51 L 10/13/24 02:42 83 31 H 95 10/13/24 02:20 82 32 H 115/60 96 10/13/24 01:14 98 H 22 94 10/13/24 01:00 105/55 L 10/13/24 01:00 105/55 L 10/13/24 01:00 105/55 L 10/13/24 01:00 105/55 L 10/13/24 01:00 91 H 28 H 94 10/13/24 00:30 104 H 26 H 89 L 10/13/24 00:00 105/52 L 10/13/24 00:00 105/52 L 10/13/24 00:00 105/52 L 10/13/24 00:00 10/13/24 00:00 94 H 10/12/24 23:57 88 38 H 91 10/12/24 23:37 36.7 C 10/12/24 23:06 83 35 H 92 10/12/24 23:00 117/55 L 10/12/24 22:57 80 32 H 91 Pulse Ox O2 Del Method O2 Del Method O2 Flow Rate O2 Flow Rate FiO2 10/13/24 10:08 Room Air 10/13/24 09:02 10/13/24 08:06 10/13/24 08:02 Nasal Cannula 2 10/13/24 08:02 10/13/24 08:00 Nasal Cannula 2 10/13/24 07:57 10/13/24 07:18 Nasal Cannula 3 10/13/24 07:07 10/13/24 07:00 10/13/24 07:00 10/13/24 06:03 10/13/24 06:00 10/13/24 05:57 10/13/24 05:09 10/13/24 05:02 10/13/24 05:00 10/13/24 04:00 10/13/24 04:00 10/13/24 04:00 10/13/24 03:06 10/13/24 03:01 10/13/24 02:42 10/13/24 02:20 10/13/24 01:14 24 10/13/24 01:00 10/13/24 01:00 10/13/24 01:00 10/13/24 01:00 10/13/24 01:00 10/13/24 00:30 10/13/24 00:00 10/13/24 00:00 10/13/24 00:00 10/13/24 00:00 94 Nasal Cannula 3 10/13/24 00:00 10/12/24 23:57 10/12/24 23:37 10/12/24 23:06 10/12/24 23:00 10/12/24 22:57 Laboratory Results Laboratory Results - last 24 hr 10/12/24 10/12/24 10/12/24 11:57 16:16 20:31 WBC RBC Hgb Hct MCV MCH MCHC RDW Std Deviation RDW Coeff of Jose Plt Count MPV Immature Gran % (Auto) Neut % (Auto) Lymph % (Auto) Chambers % (Auto) Eos % (Auto) Baso % (Auto) Neut # (Auto) Lymph # (Auto) Chambers # (Auto) Eos # (Auto) Baso # (Auto) Immature Gran # (Auto) Heparin Anti-Xa, Unfract 0.27 L Sodium Potassium Chloride Carbon Dioxide Anion Gap BUN Creatinine Est Cr Clr Drug Dosing eGFR BUN/Creatinine Ratio Glucose POC Glucose 145 H 166 H Uric Acid Calcium Magnesium 10/13/24 10/13/24 10/13/24 00:42 04:37 07:22 WBC 11.10 H RBC 3.11 L Hgb 8.8 L Hct 27.6 L MCV 88.7 MCH 28.3 MCHC 31.9 L RDW Std Deviation 50.5 H RDW Coeff of Jose 15.9 H Plt Count 146 MPV 11.3 Immature Gran % (Auto) 0.5 Neut % (Auto) 84.8 Lymph % (Auto) 5.9 Chambers % (Auto) 7.8 Eos % (Auto) 0.7 Baso % (Auto) 0.3 Neut # (Auto) 9.40 H Lymph # (Auto) 0.66 L Chambers # (Auto) 0.87 H Eos # (Auto) 0.08 Baso # (Auto) 0.03 Immature Gran # (Auto) 0.06 Heparin Anti-Xa, Unfract 0.30 0.29 L Sodium 138 Potassium 4.1 Chloride 106 Carbon Dioxide 29 Anion Gap 3 BUN 41 H Creatinine 1.61 H Est Cr Clr Drug Dosing 42.8 eGFR 44.05 BUN/Creatinine Ratio 25.5 H Glucose 176 H POC Glucose 194 H Uric Acid 10.8 H Calcium 8.0 L Magnesium 1.8 10/13/24 08:45 WBC RBC Hgb 9.9 L Hct MCV MCH MCHC RDW Std Deviation RDW Coeff of Jose Plt Count MPV Immature Gran % (Auto) Neut % (Auto) Lymph % (Auto) Chambers % (Auto) Eos % (Auto) Baso % (Auto) Neut # (Auto) Lymph # (Auto) Chambers # (Auto) Eos # (Auto) Baso # (Auto) Immature Gran # (Auto) Heparin Anti-Xa, Unfract Sodium Potassium Chloride Carbon Dioxide Anion Gap BUN Creatinine Est Cr Clr Drug Dosing eGFR BUN/Creatinine Ratio Glucose POC Glucose Uric Acid Calcium Magnesium
--- NOTE | 2024-10-13 11:22 | Hospitalist Progress Note ---
Date of Service October 13, 2024 Assessment & Plan (1) Hypoxic respiratory failure: Plan: Mr. Gonzalez is a 74-year-old male from [facility] visiting [place] with past medical history significant for diabetes, CAD status post CABG, hypertension, GERD, BPH hyperlipidemia presents with respiratory distress and chest pain. Patient admitted to ICU s/p intubation for VDRF due to acute heart failure exacerbation and possible superimposed pneumonia. Ventilatory dependent respiratory failure, multifactorial s/p extubation 10/12 Multifocal pneumonia Pulmonary edema Likely congestive heart failure CXR with improved opacities extubated on 10/12 and now on RA wean o2 as able continue Rocephin and doxycycline at this time diuresis as tolerated NSTEMI Obstructive CAD s/p CABG (remote) s/p cardiac cath without acute thrombosis, bypass patent 90% distal left main 100% proximal LAD 100% proximal circumflex 100% mid RCA. Distal RCA retrofills via graft to RV branch with 100% occlusion prior to PDA. Per interventional cardiology: Grafts are widely patent and no clear acute high risk disease to explain patient's presentation; Distal RCA after graft anastomosis occluded. Suspect chronic but cant rule out acute. Continue heparin iso ?acute distal RCA as well as PAF Continue home dapt with asa/plavix Acute on chronic heart failure with mildly reduced EF, 40-45% HTN likely 2/2 ischemic cardiomyopathy Cardiology consulted, undergoing diuresis-switched to oral home 80mg lasix resume home meds as able, consider addition spironolactone per Cardiology lisinopril 10mg resumed imdur 120mg daily resumed nifedipine 60mg bid resumed Bioprosthetic valve in place stable function on echo per cards Paroxysmal a fib NSR as of now Home dosing Metoprolol 100mg BID XL monitor on telemetry On Eliquis BID Gout Uric acid elevated at 10.8 Was started on colchicine OA feet Pt with bilateral foot pain XRAYs ordered noting bilateral severe OA Started on capsaicin cream (pt also diabetic) PRN tylenol, oxycodone for pain Conjunctivitis erythromycin ointment Diabetes Sliding scale possible MILLI creatinine 1.7--down to 1.55 No known baseline To avoid nephrotoxic agents Will monitor Hyperlipidemia On statin BPH On Flomax GERD On Protonix DVT prophylaxis On Eliquis BID PT/OT- recommended rehab Admission and Anticipated Discharge Date Admission Date: October 10, 2024 Subjective pt was seen with his son at bedside Stated that he felt better but noting significant pain in his lower extremities bilaterally Denies a Hx of peripheral neuropathy but does note that he had an elevated uric acid recently Review of Systems Review of Systems: All systems reviewed & are unremarkable except as noted in Subjective Physical Exam Physical Exam: General: Alert, oriented. No acute distress Skin: No noted rashes or bruises Psych: Appropriate mood and affect HEENT: NC/AT, eyes with bilateral crusting CV: RRR Resp: Breath sounds with some coarseness bilaterally, no increased effort of breathing Abdomen: Soft, nontender Extremities: No edema in lower extremities bilaterally. Results & Data Results & Data Vital Signs (Past 12 Hours) Vital Signs Temp Pulse Pulse Resp BP BP Pulse Ox 10/13/24 10:08 63 20 99/48 L 92 10/13/24 09:02 36.5 C 10/13/24 08:06 80 30 H 92 10/13/24 08:02 120/61 95 10/13/24 08:02 120/61 10/13/24 08:00 10/13/24 07:57 76 24 95 10/13/24 07:18 75 20 92 10/13/24 07:07 79 10/13/24 07:00 125/75 10/13/24 07:00 125/75 10/13/24 06:03 81 38 H 96 10/13/24 06:00 140/51 L 10/13/24 05:57 75 28 H 96 10/13/24 05:09 90 20 97 10/13/24 05:02 116/68 10/13/24 05:00 80 28 H 91 10/13/24 04:00 79 28 H 93 10/13/24 04:00 107/62 10/13/24 04:00 36.9 C 10/13/24 03:06 82 28 H 93 10/13/24 03:01 115/51 L 10/13/24 02:42 83 31 H 95 10/13/24 02:20 82 32 H 115/60 96 10/13/24 01:14 98 H 22 94 10/13/24 01:00 105/55 L 10/13/24 01:00 105/55 L 10/13/24 01:00 105/55 L 10/13/24 01:00 105/55 L 10/13/24 01:00 91 H 28 H 94 10/13/24 00:30 104 H 26 H 89 L 10/13/24 00:00 105/52 L 10/13/24 00:00 105/52 L 10/13/24 00:00 105/52 L 10/13/24 00:00 10/13/24 00:00 94 H 10/12/24 23:57 88 38 H 91 10/12/24 23:37 36.7 C Pulse Ox O2 Del Method O2 Del Method O2 Flow Rate O2 Flow Rate FiO2 10/13/24 10:08 Room Air 10/13/24 09:02 10/13/24 08:06 10/13/24 08:02 Nasal Cannula 2 10/13/24 08:02 10/13/24 08:00 Nasal Cannula 2 10/13/24 07:57 10/13/24 07:18 Nasal Cannula 3 10/13/24 07:07 10/13/24 07:00 10/13/24 07:00 10/13/24 06:03 10/13/24 06:00 10/13/24 05:57 10/13/24 05:09 10/13/24 05:02 10/13/24 05:00 10/13/24 04:00 10/13/24 04:00 10/13/24 04:00 10/13/24 03:06 10/13/24 03:01 10/13/24 02:42 10/13/24 02:20 10/13/24 01:14 24 10/13/24 01:00 10/13/24 01:00 10/13/24 01:00 10/13/24 01:00 10/13/24 01:00 10/13/24 00:30 10/13/24 00:00 10/13/24 00:00 10/13/24 00:00 10/13/24 00:00 94 Nasal Cannula 3 10/13/24 00:00 10/12/24 23:57 10/12/24 23:37
--- NOTE | 2024-10-13 11:28 | XRay Report ---
XR foot LT 2V CLINICAL HISTORY: left foot pain COMPARISON: None FINDINGS: 2 views of the left foot demonstrate mild hallux valgus with degenerative changes at the f irst tarsometatarsal joint and first metatarsophalangeal joint of moderate severity. There are also c hanges of osteoarthritis involving the fifth metatarsophalangeal joint and the distal interphalangeal joints of all the digits. Patient has a cornuate navicular. There is a prominent os perineum. Arteri al calcifications are noted. Surgical clips are identified at distal aspect of the lower leg. IMPRESSION: Chronic changes as described. No acute findings ACT 112: Negative or not required by law. Electronically signed by: Sangeetha Spivey M.D. 10/13/2024 11:27 AM
--- NOTE | 2024-10-13 11:31 | Pharmacy Report ---
Pharmacy Glycemic Short Note 2 - Date of Service October 13, 2024 - Glycemic Short BSG Results (Last 24 hours): 10/12/24 10/12/24 10/13/24 11:57 20:31 04:37 Glucose 176 H POC Glucose 145 H 166 H 10/13/24 07:22 Glucose POC Glucose 194 H OUTPATIENT ANTIDIABETIC REGIMEN: * Tresiba 52 units SC daily * Novolog 15 units SC daily with breakfast HbA1c: * 7.2% (10/11/24) ASSESSMENT: 10/13: * Aniceto received 23 units of insulin on Friday and 22 units of insulin on Friday, 10 units of basal each day. BSGs have ranged from 145-203 mg/dL. * Extubation occurred yesterday. Doing better clinically. Remains on Ceftriaxone and Doxycycline for 5 days total. Heparin drip stopped in favor of DOAC today. Diet has been advanced to T2DM. Tolerating well. * Fasting BSG was 194 mg/dL this AM. Given this is above goal and advancement in diet, will double basal dose this AM. This is still less than 50% of the patients home basal dose. Monitor fasting's daily but will likely need titrated up. * No change to Novolog regimen for now. Continue with weight/stress of 3 dosing. 10/11: * 74 yo M admitted on 10/10/24 secondary to chest pain and respiratory failure. Pharmacy has been consulted to assist with inpatient glycemic management. Patient is a Type 2 diabetic as an outpatient. Please refer to outpatient regimen and most recent HbA1c above. * BSGs were in the 200s last night upon admission. Patient is NPO. Currently intubated and sedated on Fentanyl and Propofol drips. Heparin infusing for atrial fibrillation. Doxycycline IV and Ceftriaxone IV for possible pneumonia. Started on Novolog only, ordered q6 while NPO. * Received 1 unit for overnight coverage and 2 units this AM. Will tighten Novolog to reflect weight/stress of 3 and tighten goal range to 110-140 mg/dL with ultimate goal of maintaining BSGs less than 180 mg/dL. * While patient is NPO and intubated, will hold off on basal insulin for now. Monitor lunchtime BSG today and may add a small basal dose, if necessary. Plans for extubation at some point this AM so may have a diet started later this evening. PLAN FOR INPATIENT GLYCEMIC CONTROL: * Basal insulin * Lantus 20 units SC daily * Bolus insulin * NovoLog per scale ACHS or Q6hrs while NPO * Goal Range: Low 110 mg/dL - High 140 mg/dL * Correction Factor: 15 mg/dL/unit * Nutritional / Prandial insulin per carb ratio of 1 unit per 5 grams CHO consumed
--- NOTE | 2024-10-13 11:36 | XRay Report ---
XR foot RT 2V CLINICAL HISTORY: right foot pain COMPARISON: None FINDINGS: 2 views of the right foot demonstrate osteoarthritis at the first tarsometatarsal joint an d the first metatarsophalangeal joint and the first interphalangeal joint of the great toe. These allison nges are moderate severity. There is mild osteoarthritis of the DIP joints of the remaining toes. The scattered osteoarthritic change in the midfoot with dorsal osteophytes talonavicular joint. There is a cornuate navicular. Small enthesophytes are present on the calcaneus. Arterial calcifications are noted. IMPRESSION: Chronic changes as described. No acute process. ACT 112: Negative or not required by law. Electronically signed by: Sangeetha Spivey M.D. 10/13/2024 11:35 AM
[2024-10-13] MEDS: APIXABAN 5 MG TABLET PO SCH (11:40)
[2024-10-13] MEDS: ERYTHROMYCIN OP OINT 5 MG/GM 3.5 GM TUBE OP SCH (13:29)
[2024-10-13] MEDS: ACETAMINOPHEN 325 MG TAB PO PRN (13:30)
[2024-10-13] MEDS ORDERED: oxyCODONE HCL IR 5 MG TAB (IMMEDIATE RELEASE) PO PRN (17:04)
[2024-10-13] MEDS: COLCHICINE 0.6 MG TAB PO SCH (17:24)
[2024-10-13] MEDS: DOCUSATE SODIUM 100 MG CAP PO SCH (20:09)
[2024-10-13] MEDS: MELATONIN 3 MG TAB PO PRN (22:15)
[2024-10-13] MEDS: CAPSAICIN CR 0.075% 60 GM TUBE EXT PRN (22:16)
[2024-10-14] MEDS: MELATONIN 3 MG TAB PO STA (03:39)
[2024-10-14 06:47] LABS: Basophils # (auto) 0.03 K/uL (0.00-0.20); Basophils % (auto) 0.3 %; Eosinophils # (auto) 0.22 K/uL (0.00-0.50); Hematocrit (blood only) 27.2 % (42.0-52.0); Hemoglobin 8.9 g/dl (14.0-18.0); Immature Granulocytes # (auto) 0.06 K/uL (0.01-0.20); Immature Granulocytes % (auto) 0.5 %; Lymphocytes # (auto) 0.66 K/uL (1.20-3.40); Mean Corpuscular Hgb Conc 32.7 g/dL (32.0-36.0); Mean Corpuscular Volume 88.6 fL (80.0-100.0); Mean Platelet Volume 11.1 fL (9.4-12.4); Monocytes # (auto) 0.77 K/uL (0.11-0.59); Monocytes % (auto) 6.9 %; Neutrophils # (auto) 9.34 K/uL (1.40-6.50); Neutrophils % (auto) 84.3 %; Platelet Count 151 K/uL (130-400); RDW Coefficient of Variation 15.9 % (11.5-14.5); RDW Standard Deviation 51.7 fL (36.4-46.3); Red Blood Count 3.07 M/uL (4.70-6.10); White Blood Count 11.08 K/ul (4.8-10.8)
[2024-10-14 07:17] LABS: Albumin Globulin Ratio 1.1 (0.9-2); Albumin Level 3.1 gm/dl (3.4-5.0); BUN Creatinine Ratio 23.8 (10-20); Bilirubin,Total 0.8 mg/dl (0.2-1.0); Calcium 8.2 mg/dl (8.6-10.3); Creatinine Clr Calc Pharmacy 30.9 ml/min; Globulin 2.8 gm/dl (2.5-4.0); Magnesium 2.2 mg/dl (1.7-2.4); Phosphorus 4.1 mg/dl (2.5-4.9); Total Protein 5.9 gm/dl (6.0-8.3)
--- NOTE | 2024-10-14 08:47 | Electrocardiogram Report ---
Test Reason : Blood Pressure : */* mmHG Vent. Rate : 142 BPM Atrial Rate : 142 BPM P-R Int : 232 ms QRS Dur : 116 ms QT Int : 266 ms P-R-T Axes : 57 12 137 degrees QTcB Int : 409 ms Sinus tachycardia with 1st degree A-V block with Premature atrial complexes Incomplete left bundle block Marked ST abnormality, possible lateral subendocardial injury Abnormal ECG No previous ECGs available Confirmed by Wil Serrano ([id number]) on 10/14/2024 8:47:19 AM Referred By: REFERRED SELF Confirmed By: Wil Serrano
--- NOTE | 2024-10-14 08:49 | Electrocardiogram Report ---
Test Reason : Blood Pressure : */* mmHG Vent. Rate : 70 BPM Atrial Rate : 70 BPM P-R Int : 174 ms QRS Dur : 94 ms QT Int : 420 ms P-R-T Axes : 79 57 113 degrees QTcB Int : 453 ms Sinus rhythm with occasional Premature ventricular complexes Left ventricular hypertrophy with repolarization abnormality ( Benavides product ) Abnormal ECG When compared with ECG of 10-Oct-2024 22:45, (unconfirmed) Sinus rhythm has replaced Atrial fibrillation Vent. rate has decreased by 63 bpm Criteria for Septal infarct are no longer Present ST no longer depressed in Inferior leads ST less depressed in Lateral leads Inverted T waves have replaced nonspecific T wave abnormality in Lateral leads Confirmed by Wil Serrano ([id number]) on 10/14/2024 8:49:28 AM Referred By: REFERRED SELF Confirmed By: Wil Serrano
[2024-10-14] MEDS: MAGNESIUM OXIDE 400 MG TAB PO SCH (08:54)
[2024-10-14] MEDS: LANTUS PER UNIT CHARGE SC SCH (08:54)
--- NOTE | 2024-10-14 08:57 | Electrocardiogram Report ---
Test Reason : Blood Pressure : */* mmHG Vent. Rate : 72 BPM Atrial Rate : 72 BPM P-R Int : 174 ms QRS Dur : 88 ms QT Int : 398 ms P-R-T Axes : 64 15 109 degrees QTcB Int : 435 ms Sinus rhythm with Premature atrial complexes Nonspecific ST and T wave abnormality Abnormal ECG When compared with ECG of 11-Oct-2024 01:02, (unconfirmed) Premature ventricular complexes are no longer Present Premature atrial complexes are now Present ST no longer depressed in Lateral leads T wave inversion no longer evident in Anterior leads Confirmed by Wil Serrano ([id number]) on 10/14/2024 8:56:48 AM Referred By: REFERRED SELF Confirmed By: Wil Serrano
--- NOTE | 2024-10-14 10:44 | Cardiology Progress Note ---
Date of Service October 14, 2024 Assessment & Plan (1) Hypoxic respiratory failure: (2) Elevated troponin: (3) Paroxysmal A-fib: (4) Multifocal pneumonia: Plan Assessment: 74 year old male presents in acute hypoxic respiratory failure requiring intubation. EKG with new onset A-fib with RVR, troponin elevation and subsequently taken to the catheterization lab. Cardiology requested for ongoing assessment and recommendations. Plan: 1. Acute Hypoxic respiratory failure: -Multifactorial -patient's Chest xray and CT scan concerning for pulmonary edema -WBC count elevated with evidence of patchy consolidation concern for an acute infectious process/multifocal pneumonia. Ongoing management per mechanism inspector/primary team with antibiotics -Blood cultures pending -Patient remains intubated as managed by mechanism inspector/pulmonology team. -Patient is on Lasix 80mg PO QD at home. He received a one time dose of IV lasix in the ER and this morning has received Bumex 2mg IV x1 dose today. Agree with plan and will reassess fluid status in the AM -Strict I&O as well as daily weights. -Close monitoring of renal function as well as goal serum K > 4.0 and serum Mag > 2.0. IV mag supplementation today as ordered 2. Elevated Troponin, Type II demand ischemia -In the setting of acute hypoxic resp. failure requiring intubation -Cardiac cath with no acute thrombosis or lesion identified. Bypass grafts patent -Troponin now trending down -Patient remains chest pain free -Continue heparin gtt -H/H noted to have declined today, plan to recheck this evening per primary team. -No notation of luis angel bleeding. -BP stable, but may give consideration to adding a topical nitrate for BP control if needed. Patient is on a high dose of PO long-acting nitrate outpatient. -Recommend that patient receive beta deion in IV form as he currently is intubated and does not have an OG tube. Consider IV Lopressor 2.5mg PO Q6H. -EKG today. completed -Oral medications current on hold due to intubation 3. Paroxysmal Atrial fibrillation -Converted during course of cardiac cath. -Patient is on a substantial home dose of Toprol xl (100mg PO BID), would recommend that he be placed on IV lopressor 2.5mg Q6H while not taking PO for rate control in the setting of recent a-fib and elevated troponin with known significant cardiac disease -Continue Heparin gtt at this time. Monitor H/H closely. 4. Multifocal pneumonia -As stated above part of reason for acute resp failure. 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 Acute hypoxic respiratory failure: Mixed etiology with definite volume overload pulmonary edema possibly superimposed on pneumonia. Heart failure in part likely precipitated by atrial fibrillation with rapid response Diuretics to continue. Will consider spironolactone orally as clinical status and renal function stabilizes 2. Paroxysmal atrial fibrillation with spontaneous conversion to sinus rhythm during initial treatments. [id number] 2 score of 5 Plan chronic anticoagulation if recurrence add amiodarone given poor tolerance 3. Severe chenega vessel coronary artery disease with intact coronary bypass grafts. Cath performed this admission with severe narrow caliber chenega vessel coronary disease. Ultimate goal is continued medical therapy. Reviewed with primary fabric worker supervisor office cath report similar to prior study of January 2024 4. Bioprosthetic aortic valve with mild elevation in valve velocities but no high-grade obstruction 5. Longstanding hypertension with hypertensive heart disease: Medications to be resumed today with patient on multiple drug regimen. Discontinue topical nitrates 10/13/2024 1. Acute hypoxic respiratory failure: Mixed etiology with definite volume overload pulmonary edema possibly superimposed on pneumonia. Clinically improved still with moderate rhonchorous cough substantial improvement in oxygen demands Diuretics changed to oral 2. Paroxysmal atrial fibrillation with spontaneous conversion to sinus rhythm during initial treatments. Plan Change heparin to Eliquis hemoglobin diminished but stable 3. Severe chenega vessel coronary artery disease with intact coronary bypass grafts. Cath performed this admission with severe narrow caliber chenega vessel coronary disease. Ultimate goal is continued medical therapy. Reviewed with primary fabric worker supervisor office cath report similar to prior study of January 2024 4. Bioprosthetic aortic valve with mild elevation in valve velocities but no high-grade obstruction, Peak aortic valve velocity 2.8 m/s 5. Longstanding hypertension with hypertensive heart disease: Medications to be resumed today with patient on multiple drug regimen. 10/14/2024 Problems as outlined above. Slow progress with increased oxygen demands this morning despite resolve of physical exam findings of congestive heart failure. Blood pressure low normal. Plan: Hold isosorbide this morning. Already received furosemide and lisinopril will hold in a.m. till renal function assured Chest x-ray today giving increasing oxygen demands We will hold apixaban until renal function assured patient maintaining sinus rhythm Admission and Anticipated Discharge Date Admission Date: October 10, 2024 Subjective Patient seen and examined, chart, medications, telemetry reviewed. No cardiac complaints though did require increasing oxygen supplementation last night due to hypoxia, "raspy breathing" This morning main complaints still tenderness in feet. Intact pulses no chest pain tachypalpitations, no arrhythmias Blood pressure relatively low this morning. Creatinine increased Physical Exam Constitutional: well developed, well nourished and + mechanically ventilated; no acute distress Neck: normal visual inspection and trachea midline Respiratory: symmetric chest movement (currently mechanical ventilated ); no respiratory distress, no cough and no audible wheezes Auscultation: lungs clear to auscultation bilaterally, + diminished lung sounds (bilateral bases ) and + rhonchi; no crackles, no rales and no wheezes Cardiovascular: Rate/Rhythm: regular rate and regular rhythm; not bradycardic Heart Sounds: normal S1, normal S2 and + murmur (+1/6 systolic ) Vessels: dorsalis pedis pulses present; no JVD Extremities: no edema Gastrointestinal (Abdomen): normal bowel sounds, soft, nontender, no hepatosplenomegaly Musculoskeletal: no cyanosis or clubbing, extremities motor strength 5/5 Skin: no rashes, warm and dry Psychiatric: Orientation: alert Results & Data Vital Signs (Past 12 Hours) Vital Signs Temp Pulse Resp BP BP Pulse Ox O2 Del Method 10/14/24 07:46 36.7 C 74 18 95/55 L 90 Nasal Cannula 10/14/24 02:26 36.8 C 68 18 100/55 L 90 Room Air O2 Flow Rate 10/14/24 07:46 4 10/14/24 02:26 Laboratory Results Laboratory Results - last 24 hr 10/13/24 10/13/24 10/13/24 11:25 16:07 19:54 WBC RBC Hgb Hct MCV MCH MCHC RDW Std Deviation RDW Coeff of Jose Plt Count MPV Immature Gran % (Auto) Neut % (Auto) Lymph % (Auto) [place] % (Auto) Eos % (Auto) Baso % (Auto) Neut # (Auto) Lymph # (Auto) [place] # (Auto) Eos # (Auto) Baso # (Auto) Immature Gran # (Auto) Sodium Potassium Chloride Carbon Dioxide Anion Gap BUN Creatinine Est Cr Clr Drug Dosing eGFR BUN/Creatinine Ratio Glucose POC Glucose 214 H 172 H 174 H Calcium Phosphorus Magnesium Total Bilirubin AST ALT Alkaline Phosphatase Total Creatine Kinase Total Protein Albumin Globulin Albumin/Globulin Ratio 10/14/24 10/14/24 06:08 07:26 WBC 11.08 H RBC 3.07 L Hgb 8.9 L Hct 27.2 L MCV 88.6 MCH 29.0 MCHC 32.7 RDW Std Deviation 51.7 H RDW Coeff of Jose 15.9 H Plt Count 151 MPV 11.1 Immature Gran % (Auto) 0.5 Neut % (Auto) 84.3 Lymph % (Auto) 6.0 [place] % (Auto) 6.9 Eos % (Auto) 2.0 Baso % (Auto) 0.3 Neut # (Auto) 9.34 H Lymph # (Auto) 0.66 L [place] # (Auto) 0.77 H Eos # (Auto) 0.22 Baso # (Auto) 0.03 Immature Gran # (Auto) 0.06 Sodium 137 Potassium 4.0 Chloride 105 Carbon Dioxide 25 Anion Gap 7 BUN 53 H Creatinine 2.23 H D Est Cr Clr Drug Dosing 30.9 eGFR 29.79 BUN/Creatinine Ratio 23.8 H Glucose 162 H POC Glucose 178 H Calcium 8.2 L Phosphorus 4.1 Magnesium 2.2 Total Bilirubin 0.8 AST 25 ALT 21 Alkaline Phosphatase 81 Total Creatine Kinase 60 Total Protein 5.9 L Albumin 3.1 L Globulin 2.8 Albumin/Globulin Ratio 1.1
--- NOTE | 2024-10-14 10:46 | Nephrology Consultation ---
Date of Consultation October 14, 2024 Assessment & Plan (1) MILLI (acute kidney injury): nonoliguric stage 1 MILLI. unknown baseline creatinine; presenting today with creatinine 2.2, up from 1.6- 1.7. hourly UOP dropped by 90% and SBP low past 24 hr. no indication for acute dialysis but certainly at risk to progress significantly. chemistries ok. volume status acceptable/ mild depletion ->>>ordered UACM, prot/creat, PVR -strict I/O -colchicine, lisinopril placed on hold as is furosemide -given new hypotension, repeat CXR ordered >> shows progression of presume multifocal PNA (patchy airspace opacieties >> images reviewed, agree w/ radiology interp) >> 02 needs coming down > trial of 250 mL ns -daily BMP (2) Hypoxic respiratory failure: intubated on admission; back to 4L and this PM down to 2L now (3) ACS (acute coronary syndrome): s/p emergent cardiac cath > for medical mgt History of Present Illness Reason for Consultation: Worsening acute on chronic kidney injury Requesting Physician: Dr Morales Attending Physician: Alexandrea Morales MD History of Present Illness 74-year-old male whom I am asked to evaluate for worsening acute on chronic kidney injury was admitted October 11 to the intensive care unit after an emergent cardiac catheterization for an NSTEMI with all grafts found to be open and emergently intubated in the ER for acute hypoxic respiratory failure. Medical history includes coronary artery disease status post CABG, bioprosthetic aortic valve replacement approximately 2004, paroxysmal atrial fibrillation, hypertension, diabetes, gout which can be fairly symptomatic, prostatic hypertrophy, GERD, hyperlipidemia. Unable to access baseline renal data in either [facility] or [facility] EHR. His pulled up his OP labs from home > in Jun 2024 sCreat 1.8, on 10/06/24 was 1.5. 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 He presented w/ creatinine 1.7 and stayed in this range through yesterday AM then today up to 2.2 abruptly. He had cardiac cath on day of admission as well as CT chest PE protocol and CT a/p w/ and w/o con. Medications this admission > colchicine 2 doses 0.6 mg, last this am, and 1.2 mg before that started for concern for acute gout attack w/ uric acid 10.8; lisinopril 10 mg x 3 doses, last this am; lasix 80 mg po x 2 doses, last this am . Also receiving diclofenac gel. He is on ceftriaxone and doxycycline for multifocal PNA. His blood pressure had been 120-150s systolic since admission until yesterday midday when sbp dropped to 90s-100s, which is where it has been since. UOP has moved from 1-1.5 ml/kg/hr to 0.1 ml/kg/hr past 24 hrs. He feels better than just prior to admission > breathing better, no chest pain; denies edema; denies voiding concerns after iniguez removal. not idzzy or lightheaded; occasional productive cough; no f/c. 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, not 80 mg daily Allergies Allergy/AdvReac Type Severity Reaction Status Date / Time iodine Allergy Hives Verified 10/10/24 22:22 Sulfa (Sulfonamide Allergy Hives Verified 10/10/24 22:22 Antibiotics) Home Medications Medication Instructions Recorded Confirmed Type Plavix 75 mg PO DAILY 10/10/24 10/10/24 History Urocit-K 15 10/10/24 History aspirin 81 mg capsule 81 mg PO DAILY 10/10/24 10/10/24 History atorvastatin 80 mg tablet 80 mg PO HS 10/10/24 10/10/24 History famotidine 40 mg tablet 40 mg PO DAILY 10/10/24 10/10/24 History folic acid 1 mg tablet 1 mg PO DAILY 10/10/24 10/10/24 History furosemide 80 mg tablet (Lasix) 80 mg PO DAILY 10/10/24 10/10/24 History insulin aspart U-100 100 unit/mL 15 unit subcut DAILY 10/10/24 10/10/24 History (3 mL) subcutaneous pen (Novolog FlexPen U-100 Insulin aspart) insulin degludec 100 unit/mL (3 52 unit subcut DAILY 10/10/24 10/10/24 History mL) subcutaneous pen (Tresiba FlexTouch U-100 insulin) isosorbide mononitrate 120 mg 120 mg PO DAILY 10/10/24 10/10/24 History tablet,extended release 24 hr lisinopril 10 mg tablet 10 mg PO DAILY 10/10/24 10/10/24 History magnesium oxide 400 mg PO DAILY 10/10/24 10/10/24 History metoprolol succinate 100 mg 100 mg PO BID 10/10/24 10/10/24 History tablet,extended release 24 hr nifedipine 60 mg tablet,extended 60 mg PO BID 10/10/24 10/10/24 History release pantoprazole 40 mg tablet,delayed 40 mg PO DAILY 10/10/24 10/10/24 History release tamsulosin 0.4 mg capsule 0.4 mg PO DAILY 10/10/24 10/10/24 History Patient History Medical History (Updated 10/13/24 @ 14:55 by Steff Manuel MD, [facility]) DMII (diabetes mellitus, type 2) CAD (coronary artery disease) Social History Smoking Status: Unknown if ever smoked Second Hand Exposure: No; Do You Dip or Chew Tobacco: No (p-t intubated); Tobacco Cessation Education Requested by Patient: No Hx Alcohol Use: No Hx Substance Use: No Preferred Language: Belarusian Communication Ability: Effective 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 Press Setter Required: No Beliefs That Will Affect Care: None Current Living Situation: Spouse Other Information That Helps Us Care for You: No (pt intubated) Feels Safe at Home: Declines to Answer Assistive Devices: Walker Review of Systems 2 Review of Systems: All systems reviewed & are unremarkable except as noted in HPI & below Physical Exam 2 Constitutional: well developed, well nourished, + frail appearing and cooperative; no acute distress Eyes: EOM intact bilaterally ENMT: Mouth: + dry oral mucous membranes Respiratory: normal respiratory effort Auscultation: + diminished lung sounds Cardiovascular: Rate/Rhythm: regular rate and regular rhythm Extremities: n o edema Gastrointestinal (Abdomen): Inspection/Auscultation: normal bowel sounds P ercussion/Palpation: abdomen soft; abdomen nontender Musculoskeletal: Extremities: strength 5/5 throughout Skin: no rashes, warm and dry Neurologic: sharp, fluent speech, no tremor Results & Data Vital Signs (Past 12 Hours) Vital Signs Temp Pulse Resp BP BP Pulse Ox O2 Del Method 10/14/24 07:46 36.7 C 74 18 95/55 L 90 Nasal Cannula 10/14/24 02:26 36.8 C 68 18 100/55 L 90 Room Air 10/13/24 22:43 36.9 C 71 20 97/54 L 90 Room Air O2 Flow Rate 10/14/24 07:46 4 10/14/24 02:26 10/13/24 22:43 Laboratory Results 10/14/24 06:08 10/14/24 06:[address] a/p unremarkable kidneys/adrenals but for simple L upper pole 2 cm cyst
--- NOTE | 2024-10-14 11:16 | XRay Report ---
XR chest 1V portable CLINICAL HISTORY: Increased oxygen demands COMPARISON STUDY: 10/12/2024 FINDINGS: The patient has been extubated and the nasogastric tube is been removed. Since the prior st udy, patchy bilateral airspace opacities have progressed. There is slight bilateral blunting of the c ostophrenic angles. IMPRESSION: Patchy bibasilar airspace opacities have progressed. ACT 112: Negative or not required by law. Electronically signed by: Sangeetha Spivey M.D. 10/14/2024 11:14 AM
[2024-10-14] MEDS: PIPERACILLIN/TAZOBACTAM 4.5 GM/100 ML BAG IV ONE (14:21)
--- NOTE | 2024-10-14 15:36 | Hospitalist Progress Note ---
Date of Service October 14, 2024 Assessment & Plan (1) Hypoxic respiratory failure: Plan: Mr. Gonzalez is a 74-year-old male from [facility] visiting [place] with past medical history significant for diabetes, CAD status post CABG, hypertension, GERD, BPH hyperlipidemia presents with respiratory distress and chest pain. Patient admitted to ICU s/p intubation for VDRF due to acute heart failure exacerbation and possible superimposed pneumonia. Ventilatory dependent respiratory failure, multifactorial s/p extubation 10/12 Multifocal pneumonia Pulmonary edema Likely congestive heart failure CXR with improved opacities extubated on 10/12 and now on RA wean o2 as able Overnight on 10/13 increased o2 requirement, repeat chest XRAY noting increased pulm opacities, rocephin broadened to Zosyn for added anaerobic coverage, continue doxycycline for atypicals Repeat sputum culture pending diuresis as tolerated- currently on hold in setting of progressing kidney disease Continue to monitor Acute on Chronic Kidney Disease creatinine trended up acutely to 2.23 from 1.6 No known baseline avoid nephrotoxic agents- lisinopril, lasix on hold at this time Nephrology consulted, appreciate recs NSTEMI Obstructive CAD s/p CABG (remote) s/p cardiac cath without acute thrombosis, bypass patent 90% distal left main 100% proximal LAD 100% proximal circumflex 100% mid RCA. Distal RCA retrofills via graft to RV branch with 100% occlusion prior to PDA. Per interventional cardiology: Grafts are widely patent and no clear acute high risk disease to explain patient's presentation; Distal RCA after graft anastomosis occluded. Suspect chronic but cant rule out acute. Continue heparin iso ?acute distal RCA as well as PAF Continue home dapt with asa/plavix Acute on chronic heart failure with mildly reduced EF, 40-45% HTN likely 2/2 ischemic cardiomyopathy Cardiology consulted, undergoing diuresis-switched to oral home 80mg lasix resume home meds as able, consider addition spironolactone per Cardiology lisinopril 10mg resumed-currently on hold imdur 120mg daily resumed -currently on hold nifedipine 60mg bid resumed Bioprosthetic valve in place stable function on echo per cards Paroxysmal a fib NSR as of now Home dosing Metoprolol 100mg BID XL monitor on telemetry On Eliquis BID- currently on hold Gout Uric acid elevated at 10.8 Was started on colchicine OA feet Pt with bilateral foot pain XRAYs ordered noting bilateral severe OA Started on capsaicin cream (pt also diabetic) PRN tylenol, oxycodone for pain Conjunctivitis erythromycin ointment Diabetes Sliding scale Hyperlipidemia On statin BPH On Flomax GERD On Protonix DVT prophylaxis On Eliquis BID PT/OT- recommended rehab Admission and Anticipated Discharge Date Admission Date: October 10, 2024 Subjective pt was seen with his and son at bedside Noted slight improvement in pain in his feet Overnight with increased oxygen requirement, now down to 2L once more Cr elevated significantly, nephrology consulted Review of Systems Review of Systems: All systems reviewed & are unremarkable except as noted in Subjective Physical Exam Physical Exam: General: Alert, oriented. No acute distress Skin: No noted rashes or bruises Psych: Appropriate mood and affect HEENT: NC/AT, eyes with bilateral crusting CV: RRR Resp: Breath sounds with some coarseness bilaterally, no increased effort of breathing Abdomen: Soft, nontender Extremities: No edema in lower extremities bilaterally. Results & Data Results & Data Vital Signs (Past 12 Hours) Vital Signs Temp Pulse Resp BP Pulse Ox O2 Del Method O2 Flow Rate 10/14/24 14:14 Nasal Cannula 4 10/14/24 11:16 67 18 94/56 L 96 Nasal Cannula 2 10/14/24 07:46 36.7 C 74 18 95/55 L 90 Nasal Cannula 4
[2024-10-14] MEDS: INSULIN ASPART PER UNIT CHARGE SC SCH (18:17)
[2024-10-14] MEDS: PIPERACILLIN/TAZOBACTAM 4.5 GM/100 ML BAG IV SCH (20:39)
[2024-10-14] MEDS: MELATONIN 3 MG TAB PO PRN (22:22)
[2024-10-15] MEDS: SODIUM CHLORIDE 0.9% 250 ML IV SCH (01:00)
[2024-10-15] MEDS: LEVALBUTEROL 1.25 MG/3 ML NEB NEB STA (01:26)
[2024-10-15] MEDS: IPRATROPIUM BROMIDE NEB SOLN 0.02% 0.5MG/2.5ML VIAL INH STA (01:26)
[2024-10-15 01:39] LABS: Base Excess VBG -2.6 mEq/L; HCO3 VBG 20 mmol/L; PCO2 VBG 29 mmHg (38-50); PO2 VBG 78 mmHg; pH VBG 7.45 (7.36-7.41)
[2024-10-15 01:58] LABS: Appearance Urine Clear (Clear); Bacteria Urine Automated None Seen (None Seen); Bilirubin Urine Negative (Negative); Blood Urine Negative (Negative); Cast Urine Automated 0-2 /lpf (0-2); Color Urine Yellow; Epithelial Cell Urine Auto 0-2 /hpf (0-2); Glucose Urine UA Negative (Negative); Ketones Urine Trace (Negative); Leukocyte Esterase Urine Trace (Negative); Nitrite Urine Negative (Negative); Protein Urine Negative (Negative); RBC Urine Automated 0-2 /hpf (0-2); Specific Gravity Urine 1.022 (1.000-1.030); Urobilinogen Urine Negative (Negative); WBC Urine Automated 0-5 /hpf (0-5)
[2024-10-15 02:08] LABS: Total Protein Urine Random 15.9 mg/dl (0-11.9)
[2024-10-15] MEDS: methylPREDNISolone 20 MG in SYRINGE 0 ML IV ONE (02:08)
[2024-10-15 02:14] LABS: Creatinine Urine Random 175.6 mg/dl; Protein Creatinine Ratio Urine 0.1 (0-0.2)
--- NOTE | 2024-10-15 03:17 | XRay Report ---
EXAM: XR chest 1V portable CLINICAL HISTORY: Low O2. TECHNIQUE: An X-ray image of the chest is obtained in AP projection. COMPARISON: Prior study dated 10/12/2024. FINDINGS: Interval removal of the endotracheal and nasogastric tubes. Pulmonary parenchyma: Unchanged bilateral, ill-defined perihilar and lower zones opacities. No evidence of pleural effusion or pleural thickening. Heart and Mediastinum: Heart size and shape are normal. No mediastinal widening or masses. No hilar or mediastinal lymphadenopathy. Bony Thorax: Bony thorax appears intact without fractures or deformities. Sternotomy sutures are seen in situ. Soft Tissues: Soft tissues overlying the chest wall are unremarkable. IMPRESSION: 1. No significant interval changes regarding the previously noted bilateral ill-defined perihilar and lower zone opacities. 2. No evidence of newly developed abnormalities. 3. Interval removal of the endotracheal and nasogastric tubes. Electronically signed by Juan Carlos Mckoy 10-15-2024 03:17 AM
[2024-10-15 08:21] LABS: HCO3 VBG 19 mmol/L; Oxygen Saturation VBG 87.5 %; PCO2 VBG 30 mmHg (38-50); PO2 VBG 54 mmHg
[2024-10-15] MEDS: INSULIN ASPART PER UNIT CHARGE SC SCH (08:22)
[2024-10-15] MEDS: LANTUS PER UNIT CHARGE SC SCH ×2 (08:23→20:46)
[2024-10-15 08:25] LABS: Hematocrit (blood only) 28.8 % (42.0-52.0); Hemoglobin 9.4 g/dl (14.0-18.0); Mean Corpuscular Hemoglobin 28.7 pg (25.0-34.0); Mean Corpuscular Hgb Conc 32.6 g/dL (32.0-36.0); Mean Corpuscular Volume 88.1 fL (80.0-100.0); Mean Platelet Volume 11.2 fL (9.4-12.4); Platelet Count 162 K/uL (130-400); RDW Coefficient of Variation 15.9 % (11.5-14.5); RDW Standard Deviation 50.8 fL (36.4-46.3); Red Blood Count 3.27 M/uL (4.70-6.10); White Blood Count 6.91 K/ul (4.8-10.8)
[2024-10-15 08:43] LABS: Albumin Globulin Ratio 1.1 (0.9-2); Albumin Level 3.3 gm/dl (3.4-5.0); BUN Creatinine Ratio 27.8 (10-20); Bilirubin,Total 0.7 mg/dl (0.2-1.0); Calcium 8.2 mg/dl (8.6-10.3); Creatinine Clr Calc Pharmacy 27.1 ml/min; Globulin 3.1 gm/dl (2.5-4.0); Magnesium 2.3 mg/dl (1.7-2.4); Phosphorus 5.3 mg/dl (2.5-4.9); Potassium 4.2 mmol/L (3.5-5.1); Total Protein 6.4 gm/dl (6.0-8.3)
[2024-10-15 08:44] LABS: Basophils # (auto) 0.02 K/uL (0.00-0.20); Basophils % (auto) 0.3 %; Echinocytes 2+; Eosinophils # (auto) 0.03 K/uL (0.00-0.50); Eosinophils % (auto) 0.4 %; Immature Granulocytes # (auto) 0.05 K/uL (0.01-0.20); Immature Granulocytes % (auto) 0.7 %; Lymphocytes # (auto) 0.19 K/uL (1.20-3.40); Lymphocytes % (auto) 2.7 %; Monocytes # (auto) 0.12 K/uL (0.11-0.59); Monocytes % (auto) 1.7 %; Neutrophils % (auto) 94.2 %; Ovalocytes 1+
[2024-10-15] MEDS: CALCIUM GLUCONATE 1,000 MG/60 ML BAG IV SCH (09:59)
--- NOTE | 2024-10-15 12:17 | Pharmacy Report ---
Pharmacy Glycemic Short Note 2 - Date of Service October 15, 2024 - Glycemic Short BSG Results (Last 24 hours): 10/14/24 10/14/24 10/15/24 16:16 20:15 07:24 Glucose POC Glucose 221 H 182 H 241 H 10/15/24 10/15/24 08:06 11:14 Glucose 284 H POC Glucose 331 H* OUTPATIENT ANTIDIABETIC REGIMEN: * Tresiba 52 units SC daily * Novolog 15 units SC daily with breakfast HbA1c: * 7.2% (10/11/24) ASSESSMENT: 10/15: * Patient received a total of 58 units of insulin yesterday (25 units were basal and 33 units were bolus). Despite receiving significantly more insulin than the previous few days, he was still above goal all of yesterday (226-106-182-182mg/dL). * Fasting BSG was 241mg/dL.--of note, he received a dose of methylprednisolone 20mg iv x 1 at 0208 this morning-- Lantus dose was increased again this morning and a Lantus scale was added for HS (0, 10, or 20 units depending on BSG). The parameters of the bolus insulin were tightened more just with breakfast. 10/13: * Aniceto received 23 units of insulin on Friday and 22 units of insulin on Friday, 10 units of basal each day. BSGs have ranged from 145-203 mg/dL. * Extubation occurred yesterday. Doing better clinically. Remains on Ceftriaxone and Doxycycline for 5 days total. Heparin drip stopped in favor of DOAC today. Diet has been advanced to T2DM. Tolerating well. * Fasting BSG was 194 mg/dL this AM. Given this is above goal and advancement in diet, will double basal dose this AM. This is still less than 50% of the patients home basal dose. Monitor fasting's daily but will likely need titrated up. * No change to Novolog regimen for now. Continue with weight/stress of 3 dosing. 10/11: * 74 yo M admitted on 10/10/24 secondary to chest pain and respiratory failure. Pharmacy has been consulted to assist with inpatient glycemic management. Patient is a Type 2 diabetic as an outpatient. Please refer to outpatient regimen and most recent HbA1c above. * BSGs were in the 200s last night upon admission. Patient is NPO. Currently intubated and sedated on Fentanyl and Propofol drips. Heparin infusing for atrial fibrillation. Doxycycline IV and Ceftriaxone IV for possible pneumonia. Started on Novolog only, ordered q6 while NPO. * Received 1 unit for overnight coverage and 2 units this AM. Will tighten Novolog to reflect weight/stress of 3 and tighten goal range to 110-140 mg/dL with ultimate goal of maintaining BSGs less than 180 mg/dL. * While patient is NPO and intubated, will hold off on basal insulin for now. Monitor lunchtime BSG today and may add a small basal dose, if necessary. Plans for extubation at some point this AM so may have a diet started later this evening. PLAN FOR INPATIENT GLYCEMIC CONTROL: * Basal insulin * Lantus 30 units SC daily, and scale (0, 10 , or 20 units depending on BSG) at HS * Bolus insulin * NovoLog per scale ACHS or Q6hrs while NPO * Goal Range: Low 110 mg/dL - High 140 mg/dL * Breakfast: -Correction Factor: 10 mg/dL/unit -Nutritional / Prandial insulin per carb ratio of 1 unit per 4 grams CHO consumed * Lunch, dinner, and HS -Correction Factor: 15 mg/dL/unit -Nutritional / Prandial insulin per carb ratio of 1 unit per 5 grams CHO consumed
--- NOTE | 2024-10-15 12:27 | Hospitalist Progress Note ---
Date of Service October 15, 2024 Assessment & Plan (1) Hypoxic respiratory failure: Plan: Mr. Gonzalez is a 74-year-old male from [facility] visiting [place] with past medical history significant for diabetes, CAD status post CABG, hypertension, GERD, BPH hyperlipidemia presents with respiratory distress and chest pain. Patient admitted to ICU s/p intubation for VDRF due to acute heart failure exacerbation and possible superimposed pneumonia. Ventilatory dependent respiratory failure, multifactorial s/p extubation 10/12 Multifocal pneumonia Pulmonary edema Likely congestive heart failure CXR with improved opacities extubated on 10/12 and now on RA wean o2 as able Overnight on 10/13 increased o2 requirement, repeat chest XRAY noting increased pulm opacities, rocephin broadened to Zosyn for added anaerobic coverage, continue doxycycline for atypicals. Leukocytosis resolved. repeat procalcitonin elevated Repeat sputum culture pending diuresis as tolerated- currently on hold in setting of progressing kidney disease Pt with repeated increased oxygen requirements overnight x 2- nocturnal pulse ox study ordered Pulmonology consulted for further recs, appreciated Continue to monitor Acute on Chronic Kidney Disease creatinine trended up acutely to 2.23 from 1.6 No known baseline avoid nephrotoxic agents- lisinopril, lasix on hold at this time Nephrology consulted, appreciate recs NSTEMI Obstructive CAD s/p CABG (remote) s/p cardiac cath without acute thrombosis, bypass patent 90% distal left main 100% proximal LAD 100% proximal circumflex 100% mid RCA. Distal RCA retrofills via graft to RV branch with 100% occlusion prior to PDA. Per interventional cardiology: Grafts are widely patent and no clear acute high risk disease to explain patient's presentation; Distal RCA after graft anastomosis occluded. Suspect chronic but cant rule out acute. Continue heparin iso ?acute distal RCA as well as PAF Continue home dapt with asa/plavix Acute on chronic heart failure with mildly reduced EF, 40-45% HTN likely 2/2 ischemic cardiomyopathy Cardiology consulted, undergoing diuresis-switched to oral home 80mg lasix resume home meds as able, consider addition spironolactone per Cardiology lisinopril 10mg resumed-currently on hold imdur 120mg daily resumed -currently on hold nifedipine 60mg bid resumed - decreased to daily Bioprosthetic valve in place stable function on echo per cards Paroxysmal a fib NSR as of now Home dosing Metoprolol 100mg BID XL monitor on telemetry On Eliquis BID- currently on hold Gout Uric acid elevated at 10.8 Was started on colchicine OA feet Pt with bilateral foot pain XRAYs ordered noting bilateral severe OA Started on capsaicin cream (pt also diabetic) PRN tylenol, oxycodone for pain Conjunctivitis erythromycin ointment Diabetes Sliding scale Hyperlipidemia On statin BPH On Flomax GERD On Protonix DVT prophylaxis On Eliquis BID PT/OT- recommended rehab, pt wants to go to rehab near [place] Admission and Anticipated Discharge Date Admission Date: October 10, 2024 Subjective pt was seen sitting in chair near his bed, oxymask on face Working with OT in the AM Increased oxygen needs once more overnight Discussion of his symptoms and complexity of case, attempts made to contact pt's son unsuccessful Review of Systems Review of Systems: All systems reviewed & are unremarkable except as noted in Subjective Physical Exam Physical Exam: General: Alert, oriented. No acute distress Skin: No noted rashes or bruises Psych: Appropriate mood and affect HEENT: NC/AT, eyes with bilateral crusting CV: RRR Resp: Breath sounds with some coarseness bilaterally, no increased effort of breathing Abdomen: Soft, nontender Extremities: No edema in lower extremities bilaterally. Results & Data Results & Data Vital Signs (Past 12 Hours) Vital Signs Temp Pulse Pulse Resp BP BP Pulse Ox 10/15/24 11:41 98 10/15/24 10:47 36.4 C L 64 18 107/66 97 10/15/24 07:54 36.3 C L 74 19 99/59 L 99 10/15/24 07:20 10/15/24 07:13 64 10/15/24 04:42 91 10/15/24 03:18 36.6 C 68 19 93/59 L 95 10/15/24 02:15 92 10/15/24 02:01 94 10/15/24 01:49 89 L 10/15/24 01:29 77 22 89 L 10/15/24 00:54 92 O2 Del Method O2 Flow Rate 10/15/24 11:41 7 10/15/24 10:47 Nasal Cannula 2 10/15/24 07:54 Oxymask 10 10/15/24 07:20 Nasal Cannula 2 10/15/24 07:13 10/15/24 04:42 Oxymask 8 10/15/24 03:18 High Flow Nasal Cannula 7 10/15/24 02:15 Nasal Cannula 7 10/15/24 02:01 Nasal Cannula 8 10/15/24 01:49 Nasal Cannula 10 10/15/24 01:29 Oxymask 5 10/15/24 00:54 Nasal Cannula 4
--- NOTE | 2024-10-15 12:33 | Nephrology Progress Note ---
Date of Service October 15, 2024 Assessment & Plan (1) MILLI (acute kidney injury): Plan: Borderline oliguric stage 1 MILLI. Baseline creatinine runs 1.5-1.8 based on 2 outpatient labs in the 6 months prior to admission; presenting today with creatinine 2.6, trending as of 10/14 up from 1.6-1.7 where creatinine has been since October 10 admission. hourly UOP dropped by 90% and SBP low 10/13-10/14 and have stayed in that range no indication for acute dialysis but certainly at risk to progress significantly. chemistries ok. volume status acceptable/ mild depletion uacm w/ ketones, trace LE else bland; 100 mg proteinuria ->>>f/u PVR -strict I/O -colchicine, lisinopril to remain on hold as is furosemide for now though could use latter prn if he suddenly had worsening hypoxia -ongoing hypotension; CXR today unchanged v 10/12 -daily BMP (2) Hypoxic respiratory failure: Plan: intubated on admission; back to 4L and this PM on 2L NC (3) ACS (acute coronary syndrome): Plan: s/p emergent cardiac cath > for medical mgt Admission and Anticipated Discharge Date Admission Date: October 10, 2024 Subjective tolerated 250 mL ns yesterday; breathing a bit better today (still on oxygen); did ambulate in the hallway with PT and leg pain a bit better though still present; no nausea vomiting; no worsening edema Review of Systems 2 Review of Systems: All systems reviewed & are unremarkable except as noted in Subjective Physical Exam 2 Constitutional: well developed, well nourished, + frail appearing and cooperative; no acute distress Eyes: EOM intact bilaterally ENMT: Mouth: + dry oral mucous membranes Respiratory: normal respiratory effort Auscultation: + diminished lung sounds Cardiovascular: Rate/Rhythm: regular rate and regular rhythm Extremities: n o edema Gastrointestinal (Abdomen): Inspection/Auscultation: normal bowel sounds P ercussion/Palpation: abdomen soft; abdomen nontender Musculoskeletal: Extremities: strength 5/5 throughout Skin: no rashes, warm and dry Results & Data Vital Signs (Past 12 Hours) Vital Signs Temp Pulse Pulse Resp BP BP Pulse Ox 10/15/24 11:41 98 10/15/24 10:47 36.4 C L 64 18 107/66 97 10/15/24 07:54 36.3 C L 74 19 99/59 L 99 10/15/24 07:20 10/15/24 07:13 64 10/15/24 04:42 91 10/15/24 03:18 36.6 C 68 19 93/59 L 95 10/15/24 02:15 92 10/15/24 02:01 94 10/15/24 01:49 89 L 10/15/24 01:29 77 22 89 L 10/15/24 00:54 92 O2 Del Method O2 Flow Rate 10/15/24 11:41 7 10/15/24 10:47 Nasal Cannula 2 10/15/24 07:54 Oxymask 10 10/15/24 07:20 Nasal Cannula 2 10/15/24 07:13 10/15/24 04:42 Oxymask 8 10/15/24 03:18 High Flow Nasal Cannula 7 10/15/24 02:15 Nasal Cannula 7 10/15/24 02:01 Nasal Cannula 8 10/15/24 01:49 Nasal Cannula 10 10/15/24 01:29 Oxymask 5 10/15/24 00:54 Nasal Cannula 4 Laboratory Results 10/15/24 08:06 10/15/24 08:06
--- NOTE | 2024-10-15 12:50 | Cardiology Progress Note ---
Date of Service October 15, 2024 Assessment & Plan (1) Hypoxic respiratory failure: (2) Elevated troponin: (3) Paroxysmal A-fib: (4) Multifocal pneumonia: Plan Assessment: 74 year old male presents in acute hypoxic respiratory failure requiring intubation. EKG with new onset A-fib with RVR, troponin elevation and subsequently taken to the catheterization lab. Cardiology requested for ongoing assessment and recommendations. Plan: 1. Acute Hypoxic respiratory failure: -Multifactorial -patient's Chest xray and CT scan concerning for pulmonary edema -WBC count elevated with evidence of patchy consolidation concern for an acute infectious process/multifocal pneumonia. Ongoing management per resident intern/primary team with antibiotics -Blood cultures pending -Patient remains intubated as managed by resident intern/pulmonology team. -Patient is on Lasix 80mg PO QD at home. He received a one time dose of IV lasix in the ER and this morning has received Bumex 2mg IV x1 dose today. Agree with plan and will reassess fluid status in the AM -Strict I&O as well as daily weights. -Close monitoring of renal function as well as goal serum K > 4.0 and serum Mag > 2.0. IV mag supplementation today as ordered 2. Elevated Troponin, Type II demand ischemia -In the setting of acute hypoxic resp. failure requiring intubation -Cardiac cath with no acute thrombosis or lesion identified. Bypass grafts patent -Troponin now trending down -Patient remains chest pain free -Continue heparin gtt -H/H noted to have declined today, plan to recheck this evening per primary team. -No notation of luis angel bleeding. -BP stable, but may give consideration to adding a topical nitrate for BP control if needed. Patient is on a high dose of PO long-acting nitrate outpatient. -Recommend that patient receive beta deion in IV form as he currently is intubated and does not have an OG tube. Consider IV Lopressor 2.5mg PO Q6H. -EKG today. completed -Oral medications current on hold due to intubation 3. Paroxysmal Atrial fibrillation -Converted during course of cardiac cath. -Patient is on a substantial home dose of Toprol xl (100mg PO BID), would recommend that he be placed on IV lopressor 2.5mg Q6H while not taking PO for rate control in the setting of recent a-fib and elevated troponin with known significant cardiac disease -Continue Heparin gtt at this time. Monitor H/H closely. 4. Multifocal pneumonia -As stated above part of reason for acute resp failure. 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 Acute hypoxic respiratory failure: Mixed etiology with definite volume overload pulmonary edema possibly superimposed on pneumonia. Heart failure in part likely precipitated by atrial fibrillation with rapid response Diuretics to continue. Will consider spironolactone orally as clinical status and renal function stabilizes 2. Paroxysmal atrial fibrillation with spontaneous conversion to sinus rhythm during initial treatments. [id number] 2 score of 5 Plan chronic anticoagulation if recurrence add amiodarone given poor tolerance 3. Severe tulalip vessel coronary artery disease with intact coronary bypass grafts. Cath performed this admission with severe narrow caliber tulalip vessel coronary disease. Ultimate goal is continued medical therapy. Reviewed with primary airplane charter clerk office cath report similar to prior study of January 2024 4. Bioprosthetic aortic valve with mild elevation in valve velocities but no high-grade obstruction 5. Longstanding hypertension with hypertensive heart disease: Medications to be resumed today with patient on multiple drug regimen. Discontinue topical nitrates 10/13/2024 1. Acute hypoxic respiratory failure: Mixed etiology with definite volume overload pulmonary edema possibly superimposed on pneumonia. Clinically improved still with moderate rhonchorous cough substantial improvement in oxygen demands Diuretics changed to oral 2. Paroxysmal atrial fibrillation with spontaneous conversion to sinus rhythm during initial treatments. Plan Change heparin to Eliquis hemoglobin diminished but stable 3. Severe tulalip vessel coronary artery disease with intact coronary bypass grafts. Cath performed this admission with severe narrow caliber tulalip vessel coronary disease. Ultimate goal is continued medical therapy. Reviewed with primary airplane charter clerk office cath report similar to prior study of January 2024 4. Bioprosthetic aortic valve with mild elevation in valve velocities but no high-grade obstruction, Peak aortic valve velocity 2.8 m/s 5. Longstanding hypertension with hypertensive heart disease: Medications to be resumed today with patient on multiple drug regimen. 10/14/2024 Problems as outlined above. Slow progress with increased oxygen demands this morning despite resolve of physical exam findings of congestive heart failure. Blood pressure low normal. Plan: Hold isosorbide this morning. Already received furosemide and lisinopril will hold in a.m. till renal function assured Chest x-ray today giving increasing oxygen demands We will hold apixaban until renal function assured patient maintaining sinus rhythm 10/15/2024 Clinically feels improved however renal function remains concerned with elevated creatinine. Hemodynamically better heart rate and blood pressure stable. Issues as addressed above 1. Acute hypoxic respiratory failure mixed etiology, pneumonia, pulmonary edema, transient atrial fibrillation with rapid ventricular response. Slowly improving with chest x-rays demonstrating persistent basilar infiltrates. 2. Chronic ischemic heart disease status post coronary artery bypass grafting remote with intact grafts and severe thin tulalip vessel disease. 3. Transient atrial fibrillation on acute presentation without recurrence. Ultimately should be anticoagulated given significant elevation in [id number] 2 score. 4. Longstanding hypertension with hypertensive heart disease. 5. Acute on chronic renal insufficiency.. Renal evaluation pending suspect component of overdiuresis with rapid blood pressure changes on reinitiating medical therapy. Admission and Anticipated Discharge Date Admission Date: October 10, 2024 Subjective Patient was seen and personally examined. Chart medications telemetry reviewed. Respiratory status improving but still with significant oxygen demands overnight. Cough improving. Renal function has not improved. Lisinopril, furosemide, isosorbide mononitrate on hold beginning yesterday. Review of Systems Review of Systems: All systems reviewed & are unremarkable except as noted in Subjective Physical Exam Constitutional: well developed, well nourished and + mechanically ventilated; no acute distress Neck: normal visual inspection and trachea midline Respiratory: symmetric chest movement (currently mechanical ventilated ); no respiratory distress, no cough and no audible wheezes Auscultation: + diminished lung sounds (bilateral bases ) and + rhonchi (Improved right base); no crackles, no rales and no wheezes Cardiovascular: Rate/Rhythm: regular rate and regular rhythm; not bradycardic Heart Sounds: normal S1, normal S2 and + murmur (+1/6 systolic ) Vessels: dorsalis pedis pulses present; no JVD Extremities: no edema Gastrointestinal (Abdomen): normal bowel sounds, soft, nontender, no hepatosplenomegaly Musculoskeletal: no cyanosis or clubbing, extremities motor strength 5/5 Skin: no rashes, warm and dry Psychiatric: Orientation: alert Results & Data Vital Signs (Past 12 Hours) Vital Signs Temp Pulse Pulse Resp BP BP Pulse Ox 10/15/24 11:41 98 10/15/24 10:47 36.4 C L 64 18 107/66 97 10/15/24 07:54 36.3 C L 74 19 99/59 L 99 10/15/24 07:20 10/15/24 07:13 64 10/15/24 04:42 91 10/15/24 03:18 36.6 C 68 19 93/59 L 95 10/15/24 02:15 92 10/15/24 02:01 94 10/15/24 01:49 89 L 10/15/24 01:29 77 22 89 L 10/15/24 00:54 92 O2 Del Method O2 Flow Rate 10/15/24 11:41 7 10/15/24 10:47 Nasal Cannula 2 10/15/24 07:54 Oxymask 10 10/15/24 07:20 Nasal Cannula 2 10/15/24 07:13 10/15/24 04:42 Oxymask 8 10/15/24 03:18 High Flow Nasal Cannula 7 10/15/24 02:15 Nasal Cannula 7 10/15/24 02:01 Nasal Cannula 8 10/15/24 01:49 Nasal Cannula 10 10/15/24 01:29 Oxymask 5 10/15/24 00:54 Nasal Cannula 4 Laboratory Results Laboratory Results - last 24 hr 10/14/24 10/14/24 10/14/24 13:00 16:16 20:15 WBC RBC Hgb Hct MCV MCH MCHC RDW Std Deviation RDW Coeff of Jose Plt Count MPV Immature Gran % (Auto) Neut % (Auto) Lymph % (Auto) [place] % (Auto) Eos % (Auto) Baso % (Auto) Neut # (Auto) Lymph # (Auto) [place] # (Auto) Eos # (Auto) Baso # (Auto) Immature Gran # (Auto) Ovalocytes Echinocytes VBG pH VBG pCO2 VBG pO2 VBG HCO3 VBG O2 Saturation VBG Base Excess Sodium Potassium Chloride Carbon Dioxide Anion Gap BUN Creatinine Est Cr Clr Drug Dosing eGFR BUN/Creatinine Ratio Glucose POC Glucose 221 H 182 H Calcium Ionized Calcium Phosphorus Magnesium Total Bilirubin AST ALT Alkaline Phosphatase Total Protein Albumin Globulin Albumin/Globulin Ratio Procalcitonin 0.91 H Urine Color Urine Appearance Urine pH Ur Specific [place] Urine Protein Urine Glucose (UA) Urine Ketones Urine Blood Urine Nitrite Urine Bilirubin Urine Urobilinogen Ur Leukocyte Esterase Urine WBC (Auto) Urine RBC (Auto) U Hyaline Cast (Auto) U Epithel Cells (Auto) Urine Bacteria (Auto) Ur Random Creatinine U Random Total Protein Protein/Creatinin Ratio 10/15/24 10/15/24 10/15/24 01:10 01:21 07:24 WBC RBC Hgb Hct MCV MCH MCHC RDW Std Deviation RDW Coeff of Jose Plt Count MPV Immature Gran % (Auto) Neut % (Auto) Lymph % (Auto) [place] % (Auto) Eos % (Auto) Baso % (Auto) Neut # (Auto) Lymph # (Auto) [place] # (Auto) Eos # (Auto) Baso # (Auto) Immature Gran # (Auto) Ovalocytes Echinocytes VBG pH 7.45 H VBG pCO2 29 L VBG pO2 78 VBG HCO3 20 VBG O2 Saturation 97.0 VBG Base Excess -2.6 Sodium Potassium Chloride Carbon Dioxide Anion Gap BUN Creatinine Est Cr Clr Drug Dosing eGFR BUN/Creatinine Ratio Glucose POC Glucose 241 H Calcium Ionized Calcium Phosphorus Magnesium Total Bilirubin AST ALT Alkaline Phosphatase Total Protein Albumin Globulin Albumin/Globulin Ratio Procalcitonin Urine Color Yellow Urine Appearance Clear Urine pH 5.0 Ur Specific [place] 1.022 Urine Protein Negative Urine Glucose (UA) Negative Urine Ketones Trace H Urine Blood Negative Urine Nitrite Negative Urine Bilirubin Negative Urine Urobilinogen Negative Ur Leukocyte Esterase Trace H Urine WBC (Auto) 0-5 Urine RBC (Auto) 0-2 U Hyaline Cast (Auto) 0-2 U Epithel Cells (Auto) 0-2 Urine Bacteria (Auto) None Seen Ur Random Creatinine 175.6 U Random Total Protein 15.9 H Protein/Creatinin Ratio 0.1 10/15/24 10/15/24 08:06 11:14 WBC 6.91 RBC 3.27 L Hgb 9.4 L Hct 28.8 L MCV 88.1 MCH 28.7 MCHC 32.6 RDW Std Deviation 50.8 H RDW Coeff of Jose 15.9 H Plt Count 162 MPV 11.2 Immature Gran % (Auto) 0.7 Neut % (Auto) 94.2 Lymph % (Auto) 2.7 [place] % (Auto) 1.7 Eos % (Auto) 0.4 Baso % (Auto) 0.3 Neut # (Auto) 6.50 Lymph # (Auto) 0.19 L [place] # (Auto) 0.12 Eos # (Auto) 0.03 Baso # (Auto) 0.02 Immature Gran # (Auto) 0.05 Ovalocytes 1+ Echinocytes 2+ VBG pH 7.40 VBG pCO2 30 L VBG pO2 54 VBG HCO3 19 VBG O2 Saturation 87.5 VBG Base Excess -5.0 Sodium 134 L Potassium 4.2 Chloride 102 Carbon Dioxide 20 L Anion Gap 12 H BUN 71 H Creatinine 2.55 H D Est Cr Clr Drug Dosing 27.1 eGFR 25.37 BUN/Creatinine Ratio 27.8 H Glucose 284 H POC Glucose 331 H* Calcium 8.2 L Ionized Calcium 1.09 L Phosphorus 5.3 H Magnesium 2.3 Total Bilirubin 0.7 AST 25 ALT 25 Alkaline Phosphatase 98 Total Protein 6.4 Albumin 3.3 L Globulin 3.1 Albumin/Globulin Ratio 1.1 Procalcitonin Urine Color Urine Appearance Urine pH Ur Specific [place] Urine Protein Urine Glucose (UA) Urine Ketones Urine Blood Urine Nitrite Urine Bilirubin Urine Urobilinogen Ur Leukocyte Esterase Urine WBC (Auto) Urine RBC (Auto) U Hyaline Cast (Auto) U Epithel Cells (Auto) Urine Bacteria (Auto) Ur Random Creatinine U Random Total Protein Protein/Creatinin Ratio
--- NOTE | 2024-10-15 17:34 | Pulmonology Progress Note ---
Date of Service October 15, 2024 Assessment & Plan (1) Multifocal pneumonia: (2) Hypoxic respiratory failure: (3) Paroxysmal A-fib: (4) CKD (chronic kidney disease): (5) MILLI (acute kidney injury): Plan CT chest 10/11/2024 personally reviewed: Motion degraded study Interlobular thickening appreciated bilaterally Patchy opacities appreciated bilaterally upper and lower lobes Moderate bilateral pleural effusion Significant mucus in the trachea No significant mediastinal lymphadenopathy 2D echo 10/11/2024: EF 40-45%, moderate size hypokinesis of dyskinesis of apical, posterior as well as inferior wall, grade 2 diastolic dysfunction, bioprosthetic aortic valve, moderate concentric LVH -- Acute hypoxic respiratory failure Multifactorial Secondary to multilobar pneumonia Pulmonary edema from systolic CHF RSV, influenza A/B negative, nasal MRSA negative Initial procalcitonin 0.14 --History of coronary artery disease S/p bypass -- S/p VDRF Extubated 10/12/2024 --A-fib On Eliquis Plan: Chest x-ray from today personally reviewed, hyperinflated pulm, patchy opacities appreciated bilateral lower lobes, improved compared to before. Inpatient with CKD, procalcitonin usually will not be helpful. Clinically patient is improving when it comes to chest x-ray. Today will be the last dose of doxycycline for the patient will not recommend to extend it. Okay to discontinue Zosyn from my side Patient is afebrile Patient is more hypoxic at night because probably he has ADRYAN and possibly central sleep apneas given the systolic CHF Patient has not tolerated BiPAP in the past, I do feel that that would be beneficial for the patient, trial of CPAP 6 cm H2O nightly Continue with incentive spirometry I spent more than 50 minutes looking in the chart, images, discussing the plan of care with the patient, RN as well as primary team Please note the above document was generated using voice recognition software. It may contain grammatical, syntax or spelling errors.Any formal questions or concerns about the content, text or information contained within the body of this dictation should be directly addressed to the provider for clarification. Admission and Anticipated Discharge Date Admission Date: October 10, 2024 Subjective Patient seen and examined at bedside. He was last seen by me when he was downgraded from the ICU. Pulmonary were consulted today as his procalcitonin was going up and there was worsening in his breathing at night Patient's family was in the room at the time of examination Patient said that overall he is doing well when it comes to his breathing is usually on exertion that he gets short of breath He is worried that he is needing oxygen. Denied any chest pain, no abdominal pain No dysuria, has been having diarrhea since yesterday, this when the antibiotics were started No hematuria, no hematochezia, no epistaxis Review of Systems 2 Review of Systems: All systems reviewed & are unremarkable except as noted in Subjective Physical Exam 2 Physical Exam: Constitutional: No acute distress HEENT: PERRLA, EOMI Respiratory system: Decreased air entry bilaterally, more decreased on the right lower side, no wheeze, no rhonchi, positive mild crackles bilaterally CVS: S1-S2 positive, positive 2 out of 6 systolic murmur appreciated best at aorta, accentuated P2 Abdomen: Soft, nontender, nondistended, positive bowel sounds x4 Extremities: +2 pulses bilaterally radialis/ dorsalis pedis, no cyanosis, +2 pitting edema bilateral lower extremity Neuro: Awake alert oriented x 3 Psych: Normal mood and affect G/U: No [place] Skin: no rashes, warm and dry Lymphatic: no cervical or axillary lymphadenopathy Results & Data Results & Data Vital Signs (Past 12 Hours) Vital Signs Temp Pulse Pulse Resp BP BP Pulse Ox 10/15/24 16:06 36.5 C 69 18 105/64 94 10/15/24 16:02 67 10/15/24 11:41 98 10/15/24 10:47 36.4 C L 64 18 107/66 97 10/15/24 07:54 36.3 C L 74 19 99/59 L 99 10/15/24 07:20 10/15/24 07:13 64 O2 Del Method O2 Flow Rate 10/15/24 16:06 Nasal Cannula 2 10/15/24 16:02 10/15/24 11:41 7 10/15/24 10:47 Nasal Cannula 2 10/15/24 07:54 Oxymask 10 10/15/24 07:20 Nasal Cannula 2 10/15/24 07:13 Laboratory Results 10/15/24 08:06 10/15/24 08:06 PG Care Time/CCT Total # of Minutes Spent Total Time Spent with Patient: Total time spent is greater than 50% in coordination of care (as documented) at patient's floor/unit and/or counseling patient: Coding Level of Care Code 94642 SUB INP/OBS CARE MIN Diagnoses Multifocal pneumonia J18.9 Hypoxic respiratory failure J96.91 Paroxysmal A-fib I48.0 CKD (chronic kidney disease) N18.9 MILLI (acute kidney injury) N17.9
[2024-10-15] MEDS ORDERED: DOXYCYCLINE HYCLATE 100 MG CAP PO SCH (18:00)
[2024-10-15] MEDS ORDERED: cefTRIAXone SODIUM 2,000 MG/50 ML BAG IV SCH (18:00)
--- NOTE | 2024-10-16 07:24 | Pulmonology Progress Note ---
Date of Service October 16, 2024 Assessment & Plan (1) Multifocal pneumonia: (2) Hypoxic respiratory failure: (3) Paroxysmal A-fib: (4) CKD (chronic kidney disease): (5) MILLI (acute kidney injury): Plan CT chest 10/11/2024 personally reviewed: Motion degraded study Interlobular thickening appreciated bilaterally Patchy opacities appreciated bilaterally upper and lower lobes Moderate bilateral pleural effusion Significant mucus in the trachea No significant mediastinal lymphadenopathy 2D echo 10/11/2024: EF 40-45%, moderate size hypokinesis of dyskinesis of apical, posterior as well as inferior wall, grade 2 diastolic dysfunction, bioprosthetic aortic valve, moderate concentric LVH -- Acute hypoxic respiratory failure Multifactorial Secondary to multilobar pneumonia Pulmonary edema from systolic CHF RSV, influenza A/B negative, nasal MRSA negative Initial procalcitonin 0.14 --History of coronary artery disease S/p bypass -- S/p VDRF Extubated 10/12/2024 --A-fib On Eliquis Plan: Chest x-ray from today personally reviewed does not show any significant change compared to yesterday Patient is more hypoxic at night because probably he has ADRYAN and possibly central sleep apneas given the systolic CHF Patient has not tolerated BiPAP in the past, I do feel that that would be beneficial for the patient continue with CPAP 6 cm H2O nightly Recommend outpatient polysomnography Zolpidem added to the patient's regimen to help her sleep at night Continue with incentive spirometry Case with primary team as well as RN No further recommendation from pulmonary perspective, will sign off Please call directly with any questions Please note the above document was generated using voice recognition software. It may contain grammatical, syntax or spelling errors.Any formal questions or concerns about the content, text or information contained within the body of this dictation should be directly addressed to the provider for clarification. Admission and Anticipated Discharge Date Admission Date: October 10, 2024 Subjective Patient seen and examined at bedside. No acute distress, no adverse events overnight He was saturating 97% on 2 L nasal cannula, I went down to 1 L Patient's family was also in the room. He did try to use the CPAP overnight, use it for 2 hours. Is not been getting good sleep during the night. He did take melatonin but no significant improvement. Denies any chest pain. No cough Fair appetite, no nausea vomiting Has been diuresing well Review of Systems 2 Review of Systems: All systems reviewed & are unremarkable except as noted in Subjective Physical Exam 2 Physical Exam: Constitutional: No acute distress HEENT: PERRLA, EOMI Respiratory system: Decreased air entry bilaterally, more decreased on the right lower side, no wheeze, no rhonchi, positive mild crackles bilaterally CVS: S1-S2 positive, positive 2 out of 6 systolic murmur appreciated best at aorta, accentuated P2 Abdomen: Soft, nontender, nondistended, positive bowel sounds x4 Extremities: +2 pulses bilaterally radialis/ dorsalis pedis, no cyanosis, +2 pitting edema bilateral lower extremity Neuro: Awake alert oriented x 3 Psych: Normal mood and affect G/U: No [place] Skin: no rashes, warm and dry Lymphatic: no cervical or axillary lymphadenopathy Results & Data Results & Data Vital Signs (Past 12 Hours) Vital Signs Temp Pulse Pulse Resp BP Pulse Ox O2 Del Method 10/16/24 03:28 36.5 C 66 20 109/66 92 Oxymask 10/16/24 00:05 72 10/15/24 23:31 36.6 C 78 24 116/70 92 CPAP 10/15/24 22:56 87 28 H 95 10/15/24 21:50 Nasal Cannula O2 Flow Rate 10/16/24 03:28 8 10/16/24 00:05 10/15/24 23:31 6 10/15/24 22:56 4 10/15/24 21:50 3 Laboratory Results 10/15/24 08:06 10/15/24 08:06 PG Care Time/CCT Total # of Minutes Spent Total Time Spent with Patient: Total time spent is greater than 50% in coordination of care (as documented) at patient's floor/unit and/or counseling patient: Coding Level of Care Code 91823 SUB INP/OBS CARE 2/35MIN Diagnoses Multifocal pneumonia J18.9 Hypoxic respiratory failure J96.91 Paroxysmal A-fib I48.0 CKD (chronic kidney disease) N18.9 MILLI (acute kidney injury) N17.9
[2024-10-16 08:14] LABS: Basophils # (auto) 0.04 K/uL (0.00-0.20); Basophils % (auto) 0.4 %; Eosinophils # (auto) 0.32 K/uL (0.00-0.50); Eosinophils % (auto) 3.4 %; Hematocrit (blood only) 31.3 % (42.0-52.0); Hemoglobin 10.3 g/dl (14.0-18.0); Immature Granulocytes # (auto) 0.08 K/uL (0.01-0.20); Immature Granulocytes % (auto) 0.8 %; Lymphocytes # (auto) 0.64 K/uL (1.20-3.40); Lymphocytes % (auto) 6.8 %; Mean Corpuscular Hemoglobin 29.1 pg (25.0-34.0); Mean Corpuscular Hgb Conc 32.9 g/dL (32.0-36.0); Mean Corpuscular Volume 88.4 fL (80.0-100.0); Mean Platelet Volume 11.2 fL (9.4-12.4); Monocytes # (auto) 0.71 K/uL (0.11-0.59); Monocytes % (auto) 7.5 %; Neutrophils # (auto) 7.63 K/uL (1.40-6.50); Neutrophils % (auto) 81.1 %; Platelet Count 208 K/uL (130-400); RDW Coefficient of Variation 15.9 % (11.5-14.5); RDW Standard Deviation 51.1 fL (36.4-46.3); Red Blood Count 3.54 M/uL (4.70-6.10); White Blood Count 9.42 K/ul (4.8-10.8)
[2024-10-16 08:31] LABS: Albumin Globulin Ratio 1.1 (0.9-2); Albumin Level 3.5 gm/dl (3.4-5.0); BUN Creatinine Ratio 32.3 (10-20); Bilirubin,Total 0.8 mg/dl (0.2-1.0); Calcium 8.7 mg/dl (8.6-10.3); Creatinine Clr Calc Pharmacy 32.3 ml/min; Globulin 3.3 gm/dl (2.5-4.0); Magnesium 2.4 mg/dl (1.7-2.4); Phosphorus 4.6 mg/dl (2.5-4.9); Potassium 3.9 mmol/L (3.5-5.1); Total Protein 6.8 gm/dl (6.0-8.3)
--- NOTE | 2024-10-16 08:41 | XRay Report ---
EXAM: XR chest 1V portable CLINICAL HISTORY: F/u TECHNIQUE: X-ray image of the chest obtained in AP portable projection. COMPARISON: Prior X-ray dated 10/15/2024 for comparison. FINDINGS: Pulmonary Parenchyma: Unchanged prominent bilateral parahilar markings and ill-defined opacities in lower zones. No evidence of pleural effusion or pleural thickening. Heart and Mediastinum: Cardiomegaly. Surgical clips in the mediastinum. No mediastinal widening or masses. No hilar or mediastinal lymphadenopathy. Bony Thorax: Sternotomy sutures. Bony thorax appears intact without fractures or deformities. Soft Tissues: Soft tissues overlying the chest wall are unremarkable. IMPRESSION: 1. Unchanged prominent bilateral parahilar markings and ill defined opacities in lower zones. Clinical and lab correlation is advised. 2. Cardiomegaly. 3. No significant interval changes. Electronically signed by Juan Carlos Mckoy 10-16-2024 08:40 AM
[2024-10-16] MEDS: NIFEdipine EXTENDED REL 30 MG TABCR PO SCH (09:27)
--- NOTE | 2024-10-16 10:34 | Cardiology Progress Note ---
Date of Service October 16, 2024 Assessment & Plan (1) Hypoxic respiratory failure: (2) Elevated troponin: (3) Paroxysmal A-fib: (4) Multifocal pneumonia: Plan Assessment: 74 year old male presents in acute hypoxic respiratory failure requiring intubation. EKG with new onset A-fib with RVR, troponin elevation and subsequently taken to the catheterization lab. Cardiology requested for ongoing assessment and recommendations. Plan: 1. Acute Hypoxic respiratory failure: -Multifactorial -patient's Chest xray and CT scan concerning for pulmonary edema -WBC count elevated with evidence of patchy consolidation concern for an acute infectious process/multifocal pneumonia. Ongoing management per supportability engineer/primary team with antibiotics -Blood cultures pending -Patient remains intubated as managed by supportability engineer/pulmonology team. -Patient is on Lasix 80mg PO QD at home. He received a one time dose of IV lasix in the ER and this morning has received Bumex 2mg IV x1 dose today. Agree with plan and will reassess fluid status in the AM -Strict I&O as well as daily weights. -Close monitoring of renal function as well as goal serum K > 4.0 and serum Mag > 2.0. IV mag supplementation today as ordered 2. Elevated Troponin, Type II demand ischemia -In the setting of acute hypoxic resp. failure requiring intubation -Cardiac cath with no acute thrombosis or lesion identified. Bypass grafts patent -Troponin now trending down -Patient remains chest pain free -Continue heparin gtt -H/H noted to have declined today, plan to recheck this evening per primary team. -No notation of luis angel bleeding. -BP stable, but may give consideration to adding a topical nitrate for BP control if needed. Patient is on a high dose of PO long-acting nitrate outpatient. -Recommend that patient receive beta deion in IV form as he currently is intubated and does not have an OG tube. Consider IV Lopressor 2.5mg PO Q6H. -EKG today. completed -Oral medications current on hold due to intubation 3. Paroxysmal Atrial fibrillation -Converted during course of cardiac cath. -Patient is on a substantial home dose of Toprol xl (100mg PO BID), would recommend that he be placed on IV lopressor 2.5mg Q6H while not taking PO for rate control in the setting of recent a-fib and elevated troponin with known significant cardiac disease -Continue Heparin gtt at this time. Monitor H/H closely. 4. Multifocal pneumonia -As stated above part of reason for acute resp failure. 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 Acute hypoxic respiratory failure: Mixed etiology with definite volume overload pulmonary edema possibly superimposed on pneumonia. Heart failure in part likely precipitated by atrial fibrillation with rapid response Diuretics to continue. Will consider spironolactone orally as clinical status and renal function stabilizes 2. Paroxysmal atrial fibrillation with spontaneous conversion to sinus rhythm during initial treatments. [id number] 2 score of 5 Plan chronic anticoagulation if recurrence add amiodarone given poor tolerance 3. Severe [place] vessel coronary artery disease with intact coronary bypass grafts. Cath performed this admission with severe narrow caliber [place] vessel coronary disease. Ultimate goal is continued medical therapy. Reviewed with primary fishing hand office cath report similar to prior study of January 2024 4. Bioprosthetic aortic valve with mild elevation in valve velocities but no high-grade obstruction 5. Longstanding hypertension with hypertensive heart disease: Medications to be resumed today with patient on multiple drug regimen. Discontinue topical nitrates 10/13/2024 1. Acute hypoxic respiratory failure: Mixed etiology with definite volume overload pulmonary edema possibly superimposed on pneumonia. Clinically improved still with moderate rhonchorous cough substantial improvement in oxygen demands Diuretics changed to oral 2. Paroxysmal atrial fibrillation with spontaneous conversion to sinus rhythm during initial treatments. Plan Change heparin to Eliquis hemoglobin diminished but stable 3. Severe [place] vessel coronary artery disease with intact coronary bypass grafts. Cath performed this admission with severe narrow caliber [place] vessel coronary disease. Ultimate goal is continued medical therapy. Reviewed with primary fishing hand office cath report similar to prior study of January 2024 4. Bioprosthetic aortic valve with mild elevation in valve velocities but no high-grade obstruction, Peak aortic valve velocity 2.8 m/s 5. Longstanding hypertension with hypertensive heart disease: Medications to be resumed today with patient on multiple drug regimen. 10/14/2024 Problems as outlined above. Slow progress with increased oxygen demands this morning despite resolve of physical exam findings of congestive heart failure. Blood pressure low normal. Plan: Hold isosorbide this morning. Already received furosemide and lisinopril will hold in a.m. till renal function assured Chest x-ray today giving increasing oxygen demands We will hold apixaban until renal function assured patient maintaining sinus rhythm 10/15/2024 Clinically feels improved however renal function remains concerned with elevated creatinine. Hemodynamically better heart rate and blood pressure stable. Issues as addressed above 1. Acute hypoxic respiratory failure mixed etiology, pneumonia, pulmonary edema, transient atrial fibrillation with rapid ventricular response. Slowly improving with chest x-rays demonstrating persistent basilar infiltrates. 2. Chronic ischemic heart disease status post coronary artery bypass grafting remote with intact grafts and severe thin [place] vessel disease. 3. Transient atrial fibrillation on acute presentation without recurrence. Ultimately should be anticoagulated given significant elevation in [id number] 2 score. 4. Longstanding hypertension with hypertensive heart disease. 5. Acute on chronic renal insufficiency.. Renal evaluation pending suspect component of overdiuresis with rapid blood pressure changes on reinitiating medical therapy. 10/16/2024 Patient still having persistent dyspnea, difficulties with CPAP last evening. Renal function improving will likely need to resume diuretics cautiously. Underlying chronic ischemic heart disease past severe hypertension on multiple drug regimen and valvular disease with restrictive aortic valve prosthesis prosthesis contributing to slow progression. Antihypertensive regimen substantially reduced. Isosorbide discontinued lisinopril on hold nifedipine reduced to daily. Would recommend continuing metoprolol succinate Await nephrology input Admission and Anticipated Discharge Date Admission Date: October 10, 2024 Subjective Patient seen and examined, chart, medications, telemetry reviewed. More dyspneic overnight. Trialed on CPAP but did not tolerate well. No stress and discomfort leading to poor sleep Feet foot pain and joint pain improved Renal function slightly improved Weight up question change in technique No worsening lower extremity edema Review of Systems Review of Systems: All systems reviewed & are unremarkable except as noted in Subjective Physical Exam Constitutional: well developed, well nourished and + mechanically ventilated; no acute distress Neck: normal visual inspection and trachea midline Respiratory: symmetric chest movement (currently mechanical ventilated ); no respiratory distress, no cough and no audible wheezes Auscultation: lungs clear to auscultation bilaterally, + diminished lung sounds (bilateral bases ) and + rhonchi (Improved right base); no crackles, no rales and no wheezes Cardiovascular: Rate/Rhythm: regular rate and regular rhythm; not bradycardic Heart Sounds: normal S1, normal S2 and + murmur (+1/6 systolic ) Vessels: dorsalis pedis pulses present; no JVD Extremities: no edema Gastrointestinal (Abdomen): normal bowel sounds, soft, nontender, no hepatosplenomegaly Musculoskeletal: no cyanosis or clubbing, extremities motor strength 5/5 Skin: no rashes, warm and dry Psychiatric: Orientation: alert Results & Data Vital Signs (Past 12 Hours) Vital Signs Temp Pulse Pulse Resp BP BP Pulse Ox 10/16/24 07:53 36.3 C L 73 18 131/74 94 10/16/24 07:51 86 10/16/24 03:28 36.5 C 66 20 109/66 92 10/16/24 00:05 72 10/15/24 23:31 36.6 C 78 24 116/70 92 10/15/24 22:56 87 28 H 95 O2 Del Method O2 Flow Rate 10/16/24 07:53 Nasal Cannula 10/16/24 07:51 10/16/24 03:28 Oxymask 8 10/16/24 00:05 10/15/24 23:31 CPAP 6 10/15/24 22:56 4
--- NOTE | 2024-10-16 14:33 | Electrocardiogram Report ---
Test Reason : Blood Pressure : */* mmHG Vent. Rate : 133 BPM Atrial Rate : * BPM P-R Int : * ms QRS Dur : 104 ms QT Int : 338 ms P-R-T Axes : * 72 146 degrees QTcB Int : 503 ms Atrial fibrillation with rapid ventricular response with premature ventricular or aberrantly conducte d complexes Septal infarct , age undetermined Marked ST abnormality, possible inferolateral subendocardial injury Abnormal ECG When compared with ECG of 10-Oct-2024 22:06, Incomplete left bundle block is no longer Present Septal infarct is now Present Nonspecific T wave abnormality has replaced inverted T waves in Lateral leads Confirmed by Franny Han (Obi) on 10/16/2024 2:33:07 PM Referred By: REFERRED SELF Confirmed By: Franny Han
--- NOTE | 2024-10-16 15:48 | Nephrology Progress Note ---
Date of Service October 16, 2024 Assessment & Plan (1) MILLI (acute kidney injury): Plan: Borderline oliguric stage 1 MILLI. Baseline creatinine runs 1.5-1.8 based on 2 outpatient labs in the 6 months prior to admission; on October 15 peak creatinine 2.6, trending as of 10/14 up from 1.6-1.7 where creatinine had been since October 10 admission. hourly UOP dropped by 90% and SBP low 10/13-10/14 and have stayed in that range >> this was in the wake of VDRF, urgent/emergent cardiac cath, IV contrast exposure for CT, initiation/resumption of diuretics. Creatinine down to 2.3 today, first day after peak no indication for acute dialysis. chemistries ok. volume status acceptable uacm w/ ketones, trace LE else bland; 100 mg proteinuria -strict I/O -colchicine, lisinopril to remain on hold as is furosemide for now though could use latter prn if he suddenly had worsening hypoxia >> doing okay so far off of diuretics; will reevaluate to resume these tomorrow potentially -hypotension of several days duration has resolved as of last evening; CXR today unchanged v 10/12 -daily BMP (2) Hypoxic respiratory failure: Plan: intubated on admission; alternating between room air and 2L NC (3) ACS (acute coronary syndrome): Plan: s/p emergent cardiac cath > for medical mgt Admission and Anticipated Discharge Date Admission Date: October 10, 2024 Subjective Feeling fairly well today. No worsening dyspnea; does not mention or dwell on leg pain today; no nausea or vomiting; no new or worrisome voiding issues or edema. Ambulated 40 to 50 yards in the [place] without worsening dyspnea. Did try CPAP last evening but struggled with claustrophobia and slept very poorly; used it 1 to 2 hours. Plans to try again tonight. Pulmonary prescribing Christy to help Review of Systems 2 Review of Systems: All systems reviewed & are unremarkable except as noted in Subjective Physical Exam 2 Constitutional: well developed (Sitting up in chair on O2 NC), well nourished, + frail appearing and cooperative; no acute distress Eyes: EOM intact bilaterally ENMT: Mouth: + dry oral mucous membranes Respiratory: normal respiratory effort Auscultation: + diminished lung sounds Cardiovascular: Rate/Rhythm: regular rate and regular rhythm Extremities: n o edema Gastrointestinal (Abdomen): Inspection/Auscultation: normal bowel sounds P ercussion/Palpation: abdomen soft; abdomen nontender Musculoskeletal: Extremities: strength 5/5 throughout Skin: no rashes, warm and dry Results & Data Vital Signs (Past 12 Hours) Vital Signs Temp Pulse Pulse Resp BP BP Pulse Ox 10/16/24 10:55 36.6 C 66 20 137/69 96 10/16/24 09:05 10/16/24 07:53 36.3 C L 73 18 131/74 94 10/16/24 07:51 86 O2 Del Method O2 Flow Rate 10/16/24 10:55 Room Air 10/16/24 09:05 Nasal Cannula 1 10/16/24 07:53 Nasal Cannula 10/16/24 07:51 Laboratory Results 10/16/24 07:34 10/16/24 07:34
--- NOTE | 2024-10-16 15:48 | Hospitalist Progress Note ---
Date of Service October 16, 2024 Assessment & Plan (1) Hypoxic respiratory failure: Plan: Mr. Gonzalez is a 74-year-old male from [facility] visiting [place] with past medical history significant for diabetes, CAD status post CABG, hypertension, GERD, BPH hyperlipidemia presents with respiratory distress and chest pain. Patient admitted to ICU s/p intubation for VDRF due to acute heart failure exacerbation and possible superimposed pneumonia. Ventilatory dependent respiratory failure, multifactorial s/p extubation 10/12 Multifocal pneumonia Pulmonary edema Likely congestive heart failure CXR with improved opacities extubated on 10/12 and now on RA wean o2 as able Overnight on 10/13 increased o2 requirement, repeat chest XRAY noting increased pulm opacities, rocephin broadened to Zosyn for added anaerobic coverage, continue doxycycline for atypicals. Leukocytosis resolved. repeat procalcitonin elevated Repeat sputum culture NGTD diuresis as tolerated- currently on hold in setting of progressing kidney disease Pt with repeated increased oxygen requirements overnight x 2 Pulmonology consulted for further recs, appreciated -cpap use qhs as tolerated -complete course of abx Continue to monitor Acute on Chronic Kidney Disease creatinine trended up acutely to 2.23 from 1.6 No known baseline avoid nephrotoxic agents- lisinopril, lasix on hold at this time Nephrology consulted, appreciate recs NSTEMI Obstructive CAD s/p CABG (remote) s/p cardiac cath without acute thrombosis, bypass patent 90% distal left main 100% proximal LAD 100% proximal circumflex 100% mid RCA. Distal RCA retrofills via graft to RV branch with 100% occlusion prior to PDA. Per interventional cardiology: Grafts are widely patent and no clear acute high risk disease to explain patient's presentation; Distal RCA after graft anastomosis occluded. Suspect chronic but cant rule out acute. Continue heparin iso ?acute distal RCA as well as PAF Continue home dapt with asa/plavix Acute on chronic heart failure with mildly reduced EF, 40-45% HTN likely 2/2 ischemic cardiomyopathy Cardiology consulted, undergoing diuresis-switched to oral home 80mg lasix resume home meds as able, consider addition spironolactone per Cardiology lisinopril 10mg resumed-currently on hold imdur 120mg daily resumed -currently on hold nifedipine 60mg bid resumed - decreased to daily Bioprosthetic valve in place stable function on echo per cards Paroxysmal a fib NSR as of now Home dosing Metoprolol 100mg BID XL monitor on telemetry On Eliquis BID- currently on hold Gout Uric acid elevated at 10.8 Was started on colchicine OA feet Pt with bilateral foot pain XRAYs ordered noting bilateral severe OA Started on capsaicin cream (pt also diabetic) PRN tylenol, oxycodone for pain Conjunctivitis erythromycin ointment Diabetes Sliding scale Hyperlipidemia On statin BPH On Flomax GERD On Protonix DVT prophylaxis On Eliquis BID PT/OT- recommended rehab, pt wants to go to rehab near [place] Admission and Anticipated Discharge Date Admission Date: October 10, 2024 Subjective pt was seen with family members at bedside, they state they will be leaving to return home to [place]. Pt notes he had a rough night overnight, did try to use the cpap but had difficulty. Foot pain improving thought not completely gone Kidney function improving Anxious for discharge but understanding of need to be medically stable before discharge Review of Systems Review of Systems: All systems reviewed & are unremarkable except as noted in Subjective Physical Exam Physical Exam: General: Alert, oriented. No acute distress Skin: No noted rashes or bruises Psych: Appropriate mood and affect HEENT: NC/AT, eyes with bilateral crusting CV: RRR Resp: Breath sounds with some coarseness bilaterally, no increased effort of breathing Abdomen: Soft, nontender Extremities: edema in lower extremities bilaterally. Results & Data Results & Data Vital Signs (Past 12 Hours) Vital Signs Temp Pulse Pulse Resp BP BP Pulse Ox 10/16/24 10:55 36.6 C 66 20 137/69 96 10/16/24 09:05 10/16/24 07:53 36.3 C L 73 18 131/74 94 10/16/24 07:51 86 O2 Del Method O2 Flow Rate 10/16/24 10:55 Room Air 10/16/24 09:05 Nasal Cannula 1 10/16/24 07:53 Nasal Cannula 10/16/24 07:51
[2024-10-16] MEDS: ZOLPIDEM TARTRATE 5 MG TAB PO SCH (22:31)
[2024-10-17] MEDS: LANTUS PER UNIT CHARGE SC SCH (08:34)
[2024-10-17 09:15] LABS: Basophils # (auto) 0.04 K/uL (0.00-0.20); Basophils % (auto) 0.5 %; Eosinophils # (auto) 0.36 K/uL (0.00-0.50); Eosinophils % (auto) 4.7 %; Hematocrit (blood only) 30.5 % (42.0-52.0); Hemoglobin 9.9 g/dl (14.0-18.0); Immature Granulocytes # (auto) 0.07 K/uL (0.01-0.20); Immature Granulocytes % (auto) 0.9 %; Lymphocytes # (auto) 0.61 K/uL (1.20-3.40); Mean Corpuscular Hemoglobin 28.4 pg (25.0-34.0); Mean Corpuscular Hgb Conc 32.5 g/dL (32.0-36.0); Mean Corpuscular Volume 87.6 fL (80.0-100.0); Mean Platelet Volume 11.1 fL (9.4-12.4); Monocytes # (auto) 0.74 K/uL (0.11-0.59); Monocytes % (auto) 9.7 %; Neutrophils % (auto) 76.2 %; Platelet Count 188 K/uL (130-400); RDW Coefficient of Variation 16.1 % (11.5-14.5); RDW Standard Deviation 51.6 fL (36.4-46.3); Red Blood Count 3.48 M/uL (4.70-6.10); White Blood Count 7.62 K/ul (4.8-10.8)
[2024-10-17 09:33] LABS: Albumin Level 3.4 gm/dl (3.4-5.0); BUN Creatinine Ratio 41.3 (10-20); Bilirubin,Total 0.8 mg/dl (0.2-1.0); Calcium 8.2 mg/dl (8.6-10.3); Creatinine Clr Calc Pharmacy 44.5 ml/min; Globulin 3.3 gm/dl (2.5-4.0); Magnesium 2.4 mg/dl (1.7-2.4); Phosphorus 3.3 mg/dl (2.5-4.9); Potassium 3.9 mmol/L (3.5-5.1); Total Protein 6.7 gm/dl (6.0-8.3)
--- NOTE | 2024-10-17 10:01 | Pulmonology Progress Note ---
Date of Service October 17, 2024 Assessment & Plan (1) Multifocal pneumonia: (2) Hypoxic respiratory failure: (3) Paroxysmal A-fib: (4) CKD (chronic kidney disease): (5) MILLI (acute kidney injury): Plan CT chest 10/11/2024 personally reviewed: Motion degraded study Interlobular thickening appreciated bilaterally Patchy opacities appreciated bilaterally upper and lower lobes Moderate bilateral pleural effusion Significant mucus in the trachea No significant mediastinal lymphadenopathy 2D echo 10/11/2024: EF 40-45%, moderate size hypokinesis of dyskinesis of apical, posterior as well as inferior wall, grade 2 diastolic dysfunction, bioprosthetic aortic valve, moderate concentric LVH -- Acute hypoxic respiratory failure Multifactorial Secondary to multilobar pneumonia Pulmonary edema from systolic CHF RSV, influenza A/B negative, nasal MRSA negative Initial procalcitonin 0.14 --History of coronary artery disease S/p bypass -- S/p VDRF Extubated 10/12/2024 --A-fib On Eliquis Plan: Recommend outpatient polysomnography Continue with zolpidem nightly as needed and use CPAP 6 cm H2O nightly Continue with incentive spirometry Case with primary team and RN No further recommendation from pulmonary perspective, will sign off Please call directly with any questions Please note the above document was generated using voice recognition software. It may contain grammatical, syntax or spelling errors.Any formal questions or concerns about the content, text or information contained within the body of this dictation should be directly addressed to the provider for clarification. Admission and Anticipated Discharge Date Admission Date: October 10, 2024 Subjective Patient seen and examined at bedside. No acute distress, no adverse events overnight He got zolpidem last night and had good night sleep, he also uses CPAP for 4 and half hours Saturation was 96-97% on room air He was having his lunch at the time. No abdominal pain No nausea vomiting Has been diuresing well Review of Systems 2 Review of Systems: All systems reviewed & are unremarkable except as noted in Subjective Physical Exam 2 Physical Exam: Constitutional: No acute distress HEENT: PERRLA, EOMI Respiratory system: Decreased air entry bilaterally, more decreased on the right lower side, no wheeze, no rhonchi, positive mild crackles bilaterally CVS: S1-S2 positive, positive 2 out of 6 systolic murmur appreciated best at aorta, accentuated P2 Abdomen: Soft, nontender, nondistended, positive bowel sounds x4 Extremities: +2 pulses bilaterally radialis/ dorsalis pedis, no cyanosis, +2 pitting edema bilateral lower extremity Neuro: Awake alert oriented x 3 Psych: Normal mood and affect G/U: No [place] Skin: no rashes, warm and dry Lymphatic: no cervical or axillary lymphadenopathy Results & Data Results & Data Vital Signs (Past 12 Hours) Vital Signs Temp Pulse Pulse Resp BP Pulse Ox O2 Del Method 10/17/24 07:57 Room Air 10/17/24 07:29 36.7 C 70 18 124/68 92 Room Air 10/17/24 07:00 68 10/17/24 02:59 36.7 C 71 18 121/65 90 Nasal Cannula 10/17/24 02:07 27 H 10/16/24 23:42 36.7 C 71 18 114/54 L 93 Nasal Cannula 10/16/24 23:10 81 24 93 10/16/24 22:27 76 O2 Flow Rate 10/17/24 07:57 10/17/24 07:29 10/17/24 07:00 10/17/24 02:59 1 10/17/24 02:07 3 10/16/24 23:42 1 10/16/24 23:10 4 10/16/24 22:27 Laboratory Results 10/17/24 08:26 10/17/24 08:26 PG Care Time/CCT Total # of Minutes Spent Total Time Spent with Patient: Total time spent is greater than 50% in coordination of care (as documented) at patient's floor/unit and/or counseling patient: Coding Level of Care Code 50988 SUB INP/OBS CARE 2/35MIN Diagnoses Multifocal pneumonia J18.9 Hypoxic respiratory failure J96.91 Paroxysmal A-fib I48.0 CKD (chronic kidney disease) N18.9 MILLI (acute kidney injury) N17.9
--- NOTE | 2024-10-17 10:49 | Cardiology Progress Note ---
Date of Service October 17, 2024 Assessment & Plan (1) Hypoxic respiratory failure: (2) Elevated troponin: (3) Paroxysmal A-fib: (4) Multifocal pneumonia: Plan Assessment: 74 year old male presents in acute hypoxic respiratory failure requiring intubation. EKG with new onset A-fib with RVR, troponin elevation and subsequently taken to the catheterization lab. Cardiology requested for ongoing assessment and recommendations. Plan: 1. Acute Hypoxic respiratory failure: -Multifactorial -patient's Chest xray and CT scan concerning for pulmonary edema -WBC count elevated with evidence of patchy consolidation concern for an acute infectious process/multifocal pneumonia. Ongoing management per clay artist/primary team with antibiotics -Blood cultures pending -Patient remains intubated as managed by clay artist/pulmonology team. -Patient is on Lasix 80mg PO QD at home. He received a one time dose of IV lasix in the ER and this morning has received Bumex 2mg IV x1 dose today. Agree with plan and will reassess fluid status in the AM -Strict I&O as well as daily weights. -Close monitoring of renal function as well as goal serum K > 4.0 and serum Mag > 2.0. IV mag supplementation today as ordered 2. Elevated Troponin, Type II demand ischemia -In the setting of acute hypoxic resp. failure requiring intubation -Cardiac cath with no acute thrombosis or lesion identified. Bypass grafts patent -Troponin now trending down -Patient remains chest pain free -Continue heparin gtt -H/H noted to have declined today, plan to recheck this evening per primary team. -No notation of luis angel bleeding. -BP stable, but may give consideration to adding a topical nitrate for BP control if needed. Patient is on a high dose of PO long-acting nitrate outpatient. -Recommend that patient receive beta deion in IV form as he currently is intubated and does not have an OG tube. Consider IV Lopressor 2.5mg PO Q6H. -EKG today. completed -Oral medications current on hold due to intubation 3. Paroxysmal Atrial fibrillation -Converted during course of cardiac cath. -Patient is on a substantial home dose of Toprol xl (100mg PO BID), would recommend that he be placed on IV lopressor 2.5mg Q6H while not taking PO for rate control in the setting of recent a-fib and elevated troponin with known significant cardiac disease -Continue Heparin gtt at this time. Monitor H/H closely. 4. Multifocal pneumonia -As stated above part of reason for acute resp failure. 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 Acute hypoxic respiratory failure: Mixed etiology with definite volume overload pulmonary edema possibly superimposed on pneumonia. Heart failure in part likely precipitated by atrial fibrillation with rapid response Diuretics to continue. Will consider spironolactone orally as clinical status and renal function stabilizes 2. Paroxysmal atrial fibrillation with spontaneous conversion to sinus rhythm during initial treatments. [id number] 2 score of 5 Plan chronic anticoagulation if recurrence add amiodarone given poor tolerance 3. Severe [place] vessel coronary artery disease with intact coronary bypass grafts. Cath performed this admission with severe narrow caliber [place] vessel coronary disease. Ultimate goal is continued medical therapy. Reviewed with primary street light lamp cleaner office cath report similar to prior study of January 2024 4. Bioprosthetic aortic valve with mild elevation in valve velocities but no high-grade obstruction 5. Longstanding hypertension with hypertensive heart disease: Medications to be resumed today with patient on multiple drug regimen. Discontinue topical nitrates 10/13/2024 1. Acute hypoxic respiratory failure: Mixed etiology with definite volume overload pulmonary edema possibly superimposed on pneumonia. Clinically improved still with moderate rhonchorous cough substantial improvement in oxygen demands Diuretics changed to oral 2. Paroxysmal atrial fibrillation with spontaneous conversion to sinus rhythm during initial treatments. Plan Change heparin to Eliquis hemoglobin diminished but stable 3. Severe [place] vessel coronary artery disease with intact coronary bypass grafts. Cath performed this admission with severe narrow caliber [place] vessel coronary disease. Ultimate goal is continued medical therapy. Reviewed with primary street light lamp cleaner office cath report similar to prior study of January 2024 4. Bioprosthetic aortic valve with mild elevation in valve velocities but no high-grade obstruction, Peak aortic valve velocity 2.8 m/s 5. Longstanding hypertension with hypertensive heart disease: Medications to be resumed today with patient on multiple drug regimen. 10/14/2024 Problems as outlined above. Slow progress with increased oxygen demands this morning despite resolve of physical exam findings of congestive heart failure. Blood pressure low normal. Plan: Hold isosorbide this morning. Already received furosemide and lisinopril will hold in a.m. till renal function assured Chest x-ray today giving increasing oxygen demands We will hold apixaban until renal function assured patient maintaining sinus rhythm 10/15/2024 Clinically feels improved however renal function remains concerned with elevated creatinine. Hemodynamically better heart rate and blood pressure stable. Issues as addressed above 1. Acute hypoxic respiratory failure mixed etiology, pneumonia, pulmonary edema, transient atrial fibrillation with rapid ventricular response. Slowly improving with chest x-rays demonstrating persistent basilar infiltrates. 2. Chronic ischemic heart disease status post coronary artery bypass grafting remote with intact grafts and severe thin [place] vessel disease. 3. Transient atrial fibrillation on acute presentation without recurrence. Ultimately should be anticoagulated given significant elevation in [id number] 2 score. 4. Longstanding hypertension with hypertensive heart disease. 5. Acute on chronic renal insufficiency.. Renal evaluation pending suspect component of overdiuresis with rapid blood pressure changes on reinitiating medical therapy. 10/16/2024 Patient still having persistent dyspnea, difficulties with CPAP last evening. Renal function improving will likely need to resume diuretics cautiously. Underlying chronic ischemic heart disease past severe hypertension on multiple drug regimen and valvular disease with restrictive aortic valve prosthesis prosthesis contributing to slow progression. Antihypertensive regimen substantially reduced. Isosorbide discontinued lisinopril on hold nifedipine reduced to daily. Would recommend continuing metoprolol succinate Await nephrology input 10/17/2024 1. Acute hypoxic respiratory failure mixed etiology, pneumonia, pulmonary edema, transient atrial fibrillation with rapid ventricular response. Slowly improving 2. Chronic ischemic heart disease status post coronary artery bypass grafting remote with intact grafts and severe thin [place] vessel disease. 3. Transient atrial fibrillation on acute presentation without recurrence. Ultimately should be anticoagulated given significant elevation in [id number] 2 score. 4. Longstanding hypertension with hypertensive heart disease. 5. Acute on chronic renal insufficiency.. Suspect component of overdiuresis with rapid blood pressure changes on reinitiating medical therapy. Clinically improved heart rate and blood pressure well-controlled. No overt pulmonary edema currently on exam. Renal function improving No volume overload Would recommend resuming apixaban Additional cardiac meds isosorbide mononitrate lisinopril and furosemide remain on hold. Any resumption would need to be at cautious dosing. Currently stable Admission and Anticipated Discharge Date Admission Date: October 10, 2024 Subjective Patient seen and personally examined, chart, medications, telemetry reviewed. Used Ambien with good sleep last night was able to wear CPAP without difficulty. No chest pains, tachypalpitations no arrhythmias on telemetry. No worsening edema. Weight less today though with likely technical elevation yesterday still with good urine output. Renal function improved by laboratory testing Physical Exam Constitutional: well developed, well nourished and + mechanically ventilated; no acute distress Neck: normal visual inspection and trachea midline Respiratory: symmetric chest movement (currently mechanical ventilated ); no respiratory distress, no cough and no audible wheezes Auscultation: lungs clear to auscultation bilaterally, + diminished lung sounds (bilateral bases ) and + rhonchi (Improved right base); no crackles, no rales and no wheezes Cardiovascular: Rate/Rhythm: regular rate and regular rhythm; not bradycardic Heart Sounds: normal S1, normal S2 and + murmur (+1/6 systolic ) Vessels: dorsalis pedis pulses present; no JVD Extremities: no edema Gastrointestinal (Abdomen): normal bowel sounds, soft, nontender, no hepatosplenomegaly Musculoskeletal: no cyanosis or clubbing, extremities motor strength 5/5 Skin: no rashes, warm and dry Psychiatric: Orientation: alert Results & Data Vital Signs (Past 12 Hours) Vital Signs Temp Pulse Pulse Resp BP Pulse Ox O2 Del Method 10/17/24 07:57 Room Air 10/17/24 07:29 36.7 C 70 18 124/68 92 Room Air 10/17/24 07:00 68 10/17/24 02:59 36.7 C 71 18 121/65 90 Nasal Cannula 10/17/24 02:07 27 H 10/16/24 23:42 36.7 C 71 18 114/54 L 93 Nasal Cannula 10/16/24 23:10 81 24 93 O2 Flow Rate 10/17/24 07:57 10/17/24 07:29 10/17/24 07:00 10/17/24 02:59 1 10/17/24 02:07 3 10/16/24 23:42 1 10/16/24 23:10 4 Laboratory Results Laboratory Results - last 24 hr 10/16/24 10/16/24 10/16/24 11:12 16:09 20:44 WBC RBC Hgb Hct MCV MCH MCHC RDW Std Deviation RDW Coeff of Jose Plt Count MPV Immature Gran % (Auto) Neut % (Auto) Lymph % (Auto) [place] % (Auto) Eos % (Auto) Baso % (Auto) Neut # (Auto) Lymph # (Auto) [place] # (Auto) Eos # (Auto) Baso # (Auto) Immature Gran # (Auto) Sodium Potassium Chloride Carbon Dioxide Anion Gap BUN Creatinine Est Cr Clr Drug Dosing eGFR BUN/Creatinine Ratio Glucose POC Glucose 241 H 120 H 119 H Calcium Phosphorus Magnesium Total Bilirubin AST ALT Alkaline Phosphatase Total Protein Albumin Globulin Albumin/Globulin Ratio 10/17/24 10/17/24 07:10 08:26 WBC 7.62 RBC 3.48 L Hgb 9.9 L Hct 30.5 L MCV 87.6 MCH 28.4 MCHC 32.5 RDW Std Deviation 51.6 H RDW Coeff of Jose 16.1 H Plt Count 188 MPV 11.1 Immature Gran % (Auto) 0.9 Neut % (Auto) 76.2 Lymph % (Auto) 8.0 [place] % (Auto) 9.7 Eos % (Auto) 4.7 Baso % (Auto) 0.5 Neut # (Auto) 5.80 Lymph # (Auto) 0.[address] [place] # (Auto) 0.74 H Eos # (Auto) 0.36 Baso # (Auto) 0.04 Immature Gran # (Auto) 0.07 Sodium 139 Potassium 3.9 Chloride 108 H Carbon Dioxide 25 Anion Gap 6 BUN 64 H Creatinine 1.55 H D Est Cr Clr Drug Dosing 44.5 eGFR 46.10 BUN/Creatinine Ratio 41.3 H Glucose 193 H POC Glucose 102 H Calcium 8.2 L Phosphorus 3.3 D Magnesium 2.4 Total Bilirubin 0.8 AST 24 ALT 25 Alkaline Phosphatase 91 Total Protein 6.7 Albumin 3.4 Globulin 3.3 Albumin/Globulin Ratio 1.0
--- NOTE | 2024-10-17 13:54 | Hospitalist Progress Note ---
Date of Service October 17, 2024 Assessment & Plan (1) Hypoxic respiratory failure: Plan: Mr. Gonzalez is a 74-year-old male from [facility] visiting [place] with past medical history significant for diabetes, CAD status post CABG, hypertension, GERD, BPH hyperlipidemia presents with respiratory distress and chest pain. Patient admitted to ICU s/p intubation for VDRF due to acute heart failure exacerbation and possible superimposed pneumonia. Ventilatory dependent respiratory failure, multifactorial s/p extubation 10/12 Multifocal pneumonia Pulmonary edema Likely congestive heart failure CXR with improved opacities extubated on 10/12 and now on RA wean o2 as able Overnight on 10/13 increased o2 requirement, repeat chest XRAY noting increased pulm opacities, rocephin broadened to Zosyn for added anaerobic coverage, continue doxycycline for atypicals. Leukocytosis resolved. repeat procalcitonin elevated Repeat sputum culture NGTD diuresis as tolerated- currently on hold in setting of progressing kidney disease Pt with repeated increased oxygen requirements overnight x 2 Pulmonology consulted for further recs, appreciated -cpap use qhs as tolerated -complete course of abx Continue to monitor Acute on Chronic Kidney Disease creatinine trended up acutely to 2.23 from 1.6, now downtrending 1.55 No known baseline avoid nephrotoxic agents- lisinopril on hold at this time Nephrology consulted, appreciate recs NSTEMI Obstructive CAD s/p CABG (remote) s/p cardiac cath without acute thrombosis, bypass patent 90% distal left main 100% proximal LAD 100% proximal circumflex 100% mid RCA. Distal RCA retrofills via graft to RV branch with 100% occlusion prior to PDA. Per interventional cardiology: Grafts are widely patent and no clear acute high risk disease to explain patient's presentation; Distal RCA after graft anastomosis occluded. Suspect chronic but cant rule out acute. Continue heparin iso ?acute distal RCA as well as PAF Continue home dapt with asa/plavix Acute on chronic heart failure with mildly reduced EF, 40-45% HTN likely 2/2 ischemic cardiomyopathy Cardiology consulted, undergoing diuresis-switched to oral home 80mg lasix -per nephro restart at 40mg daily resume home meds as able, consider addition spironolactone per Cardiology lisinopril 10mg resumed-currently on hold imdur 120mg daily resumed -currently on hold nifedipine 60mg bid resumed - decreased to daily Bioprosthetic valve in place stable function on echo per cards Paroxysmal a fib NSR as of now Home dosing Metoprolol 100mg BID XL monitor on telemetry On Eliquis BID- currently on hold Gout Uric acid elevated at 10.8 Was started on colchicine OA feet Pt with bilateral foot pain XRAYs ordered noting bilateral severe OA Started on capsaicin cream (pt also diabetic) PRN tylenol, oxycodone for pain Conjunctivitis erythromycin ointment Diabetes Sliding scale Hyperlipidemia On statin BPH On Flomax GERD On Protonix DVT prophylaxis On Eliquis BID PT/OT- recommended rehab, pt wants to go to rehab near [place] Admission and Anticipated Discharge Date Admission Date: October 10, 2024 Subjective Pt was seen multiple times during the day Anxious for discharge Kidney function improving Review of Systems Review of Systems: All systems reviewed & are unremarkable except as noted in Subjective Physical Exam Physical Exam: General: Alert, oriented. No acute distress Skin: No noted rashes or bruises Psych: Appropriate mood and affect HEENT: NC/AT, eyes with bilateral crusting CV: RRR Resp: Breath sounds with some coarseness bilaterally, no increased effort of breathing Abdomen: Soft, nontender Extremities: edema in lower extremities bilaterally. Results & Data Results & Data Vital Signs (Past 12 Hours) Vital Signs Temp Pulse Pulse Resp BP Pulse Ox O2 Del Method 10/17/24 10:52 36.7 C 65 18 120/68 97 Room Air 10/17/24 07:57 Room Air 10/17/24 07:29 36.7 C 70 18 124/68 92 Room Air 10/17/24 07:00 68 10/17/24 02:59 36.7 C 71 18 121/65 90 Nasal Cannula 10/17/24 02:07 27 H O2 Flow Rate 10/17/24 10:52 10/17/24 07:57 10/17/24 07:29 10/17/24 07:00 10/17/24 02:59 1 10/17/24 02:07 3
--- NOTE | 2024-10-17 13:56 | Nephrology Progress Note ---
Date of Service October 17, 2024 Assessment & Plan (1) MILLI (acute kidney injury): Plan: resolved stage 1 MILLI, was borderline oliguric for about 48 hr. Baseline creatinine runs 1.5-1.8 based on 2 outpatient labs in the 6 months prior to admission; on October 15 peak creatinine 2.6, trending as of 10/14 up from 1.6-1.7 where creatinine had been since October 10 admission. hourly UOP dropped by 90% and SBP low 10/13-10/14 and have stayed in that range >> this was in the wake of VDRF, urgent/emergent cardiac cath, IV contrast exposure for CT, initiation/resumption of diuretics. Creatinine down to 1.6 today, back to baseline no indication for acute dialysis. chemistries ok. volume status acceptable uacm w/ ketones, trace LE else bland; 100 mg proteinuria -strict I/O -colchicine, lisinopril to remain on hold as is furosemide for now though could use latter prn if he suddenly had worsening hypoxia >> doing okay so far off of diuretics; will reevaluate to resume these tomorrow potentially -hypotension of several days duration has resolved as of last evening; CXR today unchanged v 10/12 -daily BMP will sign off NEPH D/C RECS DX: Stage 1 nonoliguric MILLI on CKD3B, multifactorial ATN from obligate IV contrast, medications, critical illness requiring ventilatory support/urgent cardiac cath RX: at d/c > continue prior to admission metoprolol -start lasix 40 mg daily today (note lower dose; order is in; this is his customary OP dose not 80 mg daily) >> titrate up as needed -reevaluate need for lisinopril 10 mg daily based on BP, clinical status, and BMP about one week after d/c -assuming no active gout flare, start allopurinol 100 mg daily on 10/20 -d/c on lower frequency nifedipine 60 mg daily instead of bid and hold this med if BP limits resuming lasix or lisinopril OTHER POST D/C CARE: -daily standing weight per HF protocols x 2 weeks <2 gm daily sodium diet -fluid limit 1.8L daily -BMP weekly with magnesium; check uric acid level after 7 days on allopurinol -titrate allopurinol up gradually to get uric acid level less than 6 -avoid colchicine & NSAIDS in CKD -work at consistent CPAP use F/U APPTS: -BMP and uric acid w/ PCP at hospital f/u -f/u w/ rheum per routine; PCP follows his CKD Care coordinated w/ Dr Carmen irvin d/c dispo, d/c meds/labs/f/u >> we are in agreement (2) Hypoxic respiratory failure: Plan: intubated on admission; alternating between room air and 2L NC (3) ACS (acute coronary syndrome): Plan: s/p emergent cardiac cath > for medical mgt Admission and Anticipated Discharge Date Admission Date: October 10, 2024 Subjective tolerated CPAP 4 hrs yesterday; no worsening and evenin improving sob; hoping to ambulate later. 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 beverage distiller but not flaring/super sore; ongoing edema R>L BLe Review of Systems 2 Review of Systems: All systems reviewed & are unremarkable except as noted in Subjective Physical Exam 2 Constitutional: well developed (Sitting up in chair on RA), well nourished, + frail appearing and cooperative; no acute distress Eyes: EOM intact bilaterally ENMT: Mouth: + dry oral mucous membranes Respiratory: normal respiratory effort; no respiratory distress and no labored breathing Auscultation: + diminished lung sounds and + crackles (bibasilar) Cardiovascular: Rate/Rhythm: regular rate and regular rhythm Heart Sounds: + murmur Extremities: + edema (1-2 + distal BLE) Gastrointestinal (Abdomen): Inspection/Auscultation: normal bowel sounds P ercussion/Palpation: abdomen soft; abdomen nontender Musculoskeletal: Extremities: strength 5/5 throughout Skin: no rashes, warm and dry Results & Data Vital Signs (Past 12 Hours) Vital Signs Temp Pulse Pulse Resp BP Pulse Ox O2 Del Method 10/17/24 10:52 36.7 C 65 18 120/68 97 Room Air 10/17/24 07:57 Room Air 10/17/24 07:29 36.7 C 70 18 124/68 92 Room Air 10/17/24 07:00 68 10/17/24 02:59 36.7 C 71 18 121/65 90 Nasal Cannula 10/17/24 02:07 27 H O2 Flow Rate 10/17/24 10:52 10/17/24 07:57 10/17/24 07:29 10/17/24 07:00 10/17/24 02:59 1 10/17/24 02:07 3 Laboratory Results 10/17/24 08:26 10/17/24 08:26 Diagnostic Findings 10/17/24 08:26 10/17/24 08:26
[2024-10-17] MEDS: FUROSEMIDE 40 MG TAB PO SCH (15:07)
[2024-10-18 07:18] LABS: Basophils # (auto) 0.02 K/uL (0.00-0.20); Basophils % (auto) 0.3 %; Eosinophils % (auto) 5.4 %; Hemoglobin 9.4 g/dl (14.0-18.0); Immature Granulocytes # (auto) 0.07 K/uL (0.01-0.20); Immature Granulocytes % (auto) 0.9 %; Lymphocytes # (auto) 0.77 K/uL (1.20-3.40); Lymphocytes % (auto) 10.4 %; Mean Corpuscular Hemoglobin 28.7 pg (25.0-34.0); Mean Corpuscular Hgb Conc 32.4 g/dL (32.0-36.0); Mean Corpuscular Volume 88.7 fL (80.0-100.0); Mean Platelet Volume 10.9 fL (9.4-12.4); Monocytes # (auto) 0.72 K/uL (0.11-0.59); Monocytes % (auto) 9.7 %; Neutrophils # (auto) 5.43 K/uL (1.40-6.50); Neutrophils % (auto) 73.3 %; Platelet Count 186 K/uL (130-400); RDW Coefficient of Variation 15.7 % (11.5-14.5); RDW Standard Deviation 51.6 fL (36.4-46.3); Red Blood Count 3.27 M/uL (4.70-6.10); White Blood Count 7.41 K/ul (4.8-10.8)
[2024-10-18 07:35] LABS: Albumin Globulin Ratio 1.1 (0.9-2); Albumin Level 3.3 gm/dl (3.4-5.0); BUN Creatinine Ratio 38.4 (10-20); Bilirubin,Total 0.8 mg/dl (0.2-1.0); Calcium 8.2 mg/dl (8.6-10.3); Magnesium 2.2 mg/dl (1.7-2.4); Phosphorus 3.2 mg/dl (2.5-4.9); Potassium 4.1 mmol/L (3.5-5.1); Total Protein 6.3 gm/dl (6.0-8.3)
[2024-10-18] MEDS ORDERED: FUROSEMIDE 20 MG TAB PO SCH (09:00)
--- NOTE | 2024-10-18 10:02 | Nephrology Progress Note ---
Date of Service October 18, 2024 Assessment & Plan Admission and Anticipated Discharge Date Admission Date: October 10, 2024 Subjective Assessment & Plan (1) MILLI (acute kidney injury): Plan: resolved stage 1 MILLI, was borderline oliguric for about 48 hr. Baseline creatinine runs 1.5-1.8 based on 2 outpatient labs in the 6 months prior to admission; on October 15 peak creatinine 2.6, trending as of 10/14 up from 1.6-1.7 where creatinine had been since October 10 admission. hourly UOP dropped by 90% and SBP low 10/13-10/14 and have stayed in that range >> this was in the w valdez of VDRF, urgent/emergent cardiac cath, IV contrast exposure for CT, initiation/resumption of diuretics. Creatinine down to 1.6 today, back to baseline no indication for acute dialysis. chemistries ok. volume status acceptable uacm w/ ketones, trace LE else bland; 100 mg proteinuria -strict I/O -colchicine, lisinopril to remain on hold as is furosemide for now though could use latter prn if he suddenly had worsening hypoxia >> doing okay so far off of diuretics; will reevaluate to resume these tomorrow potentially -hypotension of several days duration has resolved as of last evening; CXR today unchanged v 10/12 -daily BMP will sign off NEPH D/C RECS DX: Stage 1 nonoliguric MILLI on CKD3B, multifactorial ATN from obligate IV contrast, medications, critical illness requiring ventilatory support/urgent cardiac cath RX: at d/c > continue prior to admission metoprolol start lasix 40 mg daily today (note lower dose; order is in; this is his customary OP dose not 80 mg daily) Creat now 1.38 better than baseline but BP starting to get higher so will restart Lisinopril 10. assuming no active gout flare, start allopurinol 100 mg daily on 10/20 OTHER POST D/C CARE: -daily standing weight per HF protocols x 2 weeks <2 gm daily sodium diet -fluid limit 1.8L daily -BMP weekly with magnesium; check uric acid level after 7 days on allopurinol -titrate allopurinol up gradually to get uric acid level less than 6 -avoid colchicine & NSAIDS in CKD -work at consistent CPAP use F/U APPTS: -BMP and uric acid w/ PCP at hospital f/u -f/u w/ rheum per routine; PCP follows his CKD (2) Hypoxic respiratory failure: Plan: intubated on admission; alternating between room air and 2L NC (3) ACS (acute coronary syndrome): Plan: s/p emergent cardiac cath > for medical mgt Subjective Now on Room air. BP starting to get higher. No new issues. Overall better. Review of Systems Review of Systems: All systems reviewed & are unremarkable except as noted in Subjective Physical Exam Constitutional: well developed (Sitting up in chair on RA), well nourished, + frail appearing and cooperative; no acute distress Eyes: EOM intact bilaterally ENMT: Mouth: + dry oral mucous membranes Respiratory: normal respiratory effort; no respiratory distress and no labored breathing Auscultation: + diminished lung sounds and + crackles (bibasilar) Cardiovascular: Rate/Rhythm: regular rate and regular rhythm Heart Sounds: + murmur Extremities: + edema (1-2 + distal BLE) Gastrointestinal (Abdomen): Inspection/Auscultation: normal bowel sounds Percussion/Palpation: abdomen soft; abdomen nontender Musculoskeletal: Extremities: strength 5/5 throughout Skin: no rashes, warm and dry Results & Data Vital Signs (Past 12 Hours) Vital Signs Temp Pulse Pulse Resp BP BP Pulse Ox 10/18/24 07:47 36.7 C 75 18 155/67 H 97 10/18/24 04:00 36.6 C 69 18 124/67 95 10/18/24 01:55 73 10/17/24 23:15 60 23 98 10/17/24 22:37 36.6 C 69 18 133/65 95 10/17/24 22:23 O2 Del Method O2 Flow Rate 10/18/24 07:47 Room Air 10/18/24 04:00 Room Air 10/18/24 01:55 10/17/24 23:15 3 10/17/24 22:37 Room Air 10/17/24 22:23 Room Air
[2024-10-18 11:20] VITALS: PULSE 67; RESP 18; TEMP 97.5; O2SAT 96
--- NOTE | 2024-10-18 11:37 | Cardiology Progress Note ---
Date of Service October 18, 2024 Assessment & Plan (1) Hypoxic respiratory failure: (2) Elevated troponin: (3) Paroxysmal A-fib: (4) Multifocal pneumonia: Plan Assessment: 74 year old male presents in acute hypoxic respiratory failure requiring intubation. EKG with new onset A-fib with RVR, troponin elevation and subsequently taken to the catheterization lab. Cardiology requested for ongoing assessment and recommendations. Plan: 1. Acute Hypoxic respiratory failure: -Multifactorial -patient's Chest xray and CT scan concerning for pulmonary edema -WBC count elevated with evidence of patchy consolidation concern for an acute infectious process/multifocal pneumonia. Ongoing management per guardian ad litem/primary team with antibiotics -Blood cultures pending -Patient remains intubated as managed by guardian ad litem/pulmonology team. -Patient is on Lasix 80mg PO QD at home. He received a one time dose of IV lasix in the ER and this morning has received Bumex 2mg IV x1 dose today. Agree with plan and will reassess fluid status in the AM -Strict I&O as well as daily weights. -Close monitoring of renal function as well as goal serum K > 4.0 and serum Mag > 2.0. IV mag supplementation today as ordered 2. Elevated Troponin, Type II demand ischemia -In the setting of acute hypoxic resp. failure requiring intubation -Cardiac cath with no acute thrombosis or lesion identified. Bypass grafts patent -Troponin now trending down -Patient remains chest pain free -Continue heparin gtt -H/H noted to have declined today, plan to recheck this evening per primary team. -No notation of luis angel bleeding. -BP stable, but may give consideration to adding a topical nitrate for BP control if needed. Patient is on a high dose of PO long-acting nitrate outpatient. -Recommend that patient receive beta deion in IV form as he currently is intubated and does not have an OG tube. Consider IV Lopressor 2.5mg PO Q6H. -EKG today. completed -Oral medications current on hold due to intubation 3. Paroxysmal Atrial fibrillation -Converted during course of cardiac cath. -Patient is on a substantial home dose of Toprol xl (100mg PO BID), would recommend that he be placed on IV lopressor 2.5mg Q6H while not taking PO for rate control in the setting of recent a-fib and elevated troponin with known significant cardiac disease -Continue Heparin gtt at this time. Monitor H/H closely. 4. Multifocal pneumonia -As stated above part of reason for acute resp failure. 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 Acute hypoxic respiratory failure: Mixed etiology with definite volume overload pulmonary edema possibly superimposed on pneumonia. Heart failure in part likely precipitated by atrial fibrillation with rapid response Diuretics to continue. Will consider spironolactone orally as clinical status and renal function stabilizes 2. Paroxysmal atrial fibrillation with spontaneous conversion to sinus rhythm during initial treatments. [id number] 2 score of 5 Plan chronic anticoagulation if recurrence add amiodarone given poor tolerance 3. 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 Cath performed this admission with severe narrow caliber douglas vessel coronary disease. Ultimate goal is continued medical therapy. Reviewed with p [facility] commercial artist office cath report similar to prior study of January 2024 4. Bioprosthetic aortic valve with mild elevation in valve velocities but no high-grade obstruction 5. Longstanding hypertension with hypertensive heart disease: Medications to be resumed today with patient on multiple drug regimen. Discontinue topical nitrates 10/13/2024 1. Acute hypoxic respiratory failure: Mixed etiology with definite volume overload pulmonary edema possibly superimposed on pneumonia. Clinically improved still with moderate rhonchorous cough substantial improvement in oxygen demands Diuretics changed to oral 2. Paroxysmal atrial fibrillation with spontaneous conversion to sinus rhythm during initial treatments. Plan Change heparin to Eliquis hemoglobin diminished but stable 3. 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 Cath performed this admission with severe narrow caliber douglas vessel coronary disease. Ultimate goal is continued medical therapy. Reviewed with primary commercial artist office cath report similar to prior study of January 2024 4. Bioprosthetic aortic valve with mild elevation in valve velocities but no high-grade obstruction, Peak aortic valve velocity 2.8 m/s 5. Longstanding hypertension with hypertensive heart disease: Medications to be resumed today with patient on multiple drug regimen. 10/14/2024 Problems as outlined above. Slow progress with increased oxygen demands this morning despite resolve of physical exam findings of congestive heart failure. Blood pressure low normal. Plan: Hold isosorbide this morning. Already received furosemide and lisinopril will hold in a.m. till renal function assured Chest x-ray today giving increasing oxygen demands We will hold apixaban until renal function assured patient maintaining sinus rhythm 10/15/2024 Clinically feels improved however renal function remains concerned with elevated creatinine. Hemodynamically better heart rate and blood pressure stable. Issues as addressed above 1. Acute hypoxic respiratory failure mixed etiology, pneumonia, pulmonary edema, transient atrial fibrillation with rapid ventricular response. Slowly improving with chest x-rays demonstrating persistent basilar infiltrates. 2. Chronic ischemic heart disease status post coronary artery bypass grafting remote with intact grafts and severe thin douglas vessel disease. 3. Transient atrial fibrillation on acute presentation without recurrence. Ultimately should be anticoagulated given significant elevation in [id number] 2 score. 4. Longstanding hypertension with hypertensive heart disease. 5. Acute on chronic renal insufficiency.. Renal evaluation pending suspect component of overdiuresis with rapid blood pressure changes on reinitiating medical therapy. 10/16/2024 Patient still having persistent dyspnea, difficulties with CPAP last evening. Renal function improving will likely need to resume diuretics cautiously. Underlying chronic ischemic heart disease past severe hypertension on multiple drug regimen and valvular disease with restrictive aortic valve prosthesis prosthesis contributing to slow progression. Antihypertensive regimen substantially reduced. Isosorbide discontinued lisinopril on hold nifedipine reduced to daily. Would recommend continuing metoprolol succinate Await nephrology input 10/17/2024 1. Acute hypoxic respiratory failure mixed etiology, pneumonia, pulmonary edema, transient atrial fibrillation with rapid ventricular response. Slowly improving 2. Chronic ischemic heart disease status post coronary artery bypass grafting remote with intact grafts and severe thin douglas vessel disease. 3. Transient atrial fibrillation on acute presentation without recurrence. Ultimately should be anticoagulated given significant elevation in [id number] 2 score. 4. Longstanding hypertension with hypertensive heart disease. 5. Acute on chronic renal insufficiency.. Suspect component of overdiuresis with rapid blood pressure changes on reinitiating medical therapy. Clinically improved heart rate and blood pressure well-controlled. No overt pulmonary edema currently on exam. Renal function improving No volume overload Would recommend resuming apixaban Additional cardiac meds isosorbide mononitrate lisinopril and furosemide remain on hold. Any resumption would need to be at cautious dosing. Currently stable 10/18/2024. . Complex 74 year old male paitent admitted with multifactorial respiratory failure, with acute hypoxic respiratory failure secondary to pneumonia and acute decompensated systolic and diastolic congestive heart failure. Course complicated by transient atrial fibrillation with rapid ventricular response and acute on chronic renal dysfunction felt to be secondary to a component of overdiuresis and rapid blood pressure changes. [id number] 6 points. Patient with longstanding hypertension with hypertensive heart disease. October 11, 2024 TTE with mildly reduced LV systolic function, EF 40 to 45%, with moderate size apical, inferior, and posterior wall motion abnormality with hypokinesis to dyskinesis of the segments, findings reflecting scarring of the inferior wall from base to apex with apical dyskinesis involving inferior wall and apical septum. Bioprosthetic aortic valve with moderate increased velocities. Grade 2 diastolic dysfunction noted along with moderately dilated left atrium, and moderate concentric LVH and noninfarcted segments. Cardiac catheterization this admission with intact grafts and severe thin douglas vessel disease. Blood pressure and heart rate controlled. Examination with mild volume overload only. [id number]% on RA. Brief run of PAT noted last evening. Creatinine improved to 1.38 mg/dL. Recommendations: Gradually resume prior to arrival medications as blood pressure permits. Imdur (120 mg/day) last received on 10/13 Prior to arrival furosemide dosing was 80 mg/day (currently receiving 40 mg/day) Prior to arrival nifedipine dose was 60 mg BID (currently receiving 60 mg/day) Discontinue aspirin noting initiation of apixaban (Eliquis). Continue clopidogrel 75 mg/day Increase activity as tolerated. Outpatient Cardiology follow-up with Dr. Davey Dutton, [facility]. Admission and Anticipated Discharge Date Admission Date: October 10, 2024 Supervising Physician Co-Signing Physician Notes Attending attestation: Case reviewed with the advanced practitioner. I have personally performed a history and physical examination on the patient. I have reviewed the advanced practitioner's documentation on the date of service referenced in note, and I agree with, and take responsibility for the plan of care. Wil Gregory, DO Subjective Patient seen and examined. Chart, medications, and telemetry reviewed. Feeling OK. No chest pain, palpitations, or increased dyspnea Telemetry: Sinus at 76 bpm currently, heart rates typically in the 60 to 80 bpm range. One run of PAT at 19:15. Physical Exam Physical Exam: General: A&Ox3. NAD. HENT: Normocephalic. Atraumatic. Eyes: PER. Conjunctiva pink, sclera clear. Neck: No JVD. Heart: Regular at 76 bpm. Grade II/ systolic murmur. No diastolic murmur. No rub. Lungs: Clear to auscultation. Abdomen: +BS. Extremities: Mild distal edema. No clubbing. No cyanosis. Limited neurological examination is without focal deficits. Results & Data Vital Signs (Past 12 Hours) Vital Signs Temp Pulse Pulse Pulse Pulse Resp Resp 10/18/24 11:20 36.4 C L 67 18 10/18/24 10:39 76 65 18 10/18/24 07:47 36.7 C 75 18 10/18/24 04:00 36.6 C 69 18 10/18/24 01:55 73 Resp BP BP Pulse Ox Pulse Ox Pulse Ox O2 Del Method 10/18/24 11:20 121/66 96 Room Air 10/18/24 10:39 16 95 97 10/18/24 07:47 155/67 H 97 Room Air 10/18/24 04:00 124/67 95 Room Air 10/18/24 01:55 Laboratory Results Cardiac Enzymes 10/18/24 Range/Units 06:51 AST 19 (13-39) U/L CBC 10/18/24 Range/Units 06:51 WBC 7.41 (4.8-10.8) K/ul RBC 3.27 L (4.70-6.10) M/uL Hgb 9.4 L (14.0-18.0) g/dl Hct 29.0 L (42.0-52.0) % Plt Count 186 (130-400) K/uL Neut # (Auto) 5.43 (1.40-6.50) K/uL Lymph # (Auto) 0.77 L (1.20-3.40) K/uL Gates # (Auto) 0.72 H (0.11-0.59) K/uL Eos # (Auto) 0.40 (0.00-0.50) K/uL Baso # (Auto) 0.02 (0.00-0.20) K/uL Comprehensive Metabolic Panel 10/18/24 Range/Units 06:51 Sodium 142 (136-145) mmol/L Potassium 4.1 (3.5-5.1) mmol/L Chloride 111 H (98-107) mmol/L Carbon Dioxide 26 (21-32) mmol/L BUN 53 H (6-23) mg/dl Creatinine 1.38 (0.6-1.4) mg/dl Glucose 126 H (70-99(Fasting)) mg/dl Calcium 8.2 L (8.6-10.3) mg/dl AST 19 (13-39) U/L ALT 20 (7-52) U/L Alkaline Phosphatase 82 (34-104) U/L Total Protein 6.3 (6.0-8.3) gm/dl Albumin 3.3 L (3.4-5.0) gm/dl Intake and Output 10/17/24 10/18/24 10/18/24 22:59 06:59 14:59 Intake Total 200 / 620 Output Total 400 / 1276 475 / 1276 600 / 600 Balance -200 / -656 -475 / -656 -600 / -600 Intake: Oral 200 / 620 Output: Urine 400 / 1275 475 / 1275 600 / 600
--- NOTE | 2024-10-18 14:06 | Discharge Summary ---
Discharge Summary Date of Service October 18, 2024 Principal Dx & Hospital Course #1 = Principal Diagnosis (1) Hypoxic respiratory failure: Plan Mr. Gonzalez is a 74-year-old male from [facility] visiting [place] with past medical history significant for diabetes, CAD status post CABG, hypertension, GERD, BPH hyperlipidemia presents with respiratory distress and chest pain. Patient admitted to ICU s/p intubation for VDRF due to acute heart failure exacerbation and possible superimposed pneumonia. Ventilatory dependent respiratory failure, multifactorial s/p extubation 10/12 Multifocal pneumonia Pulmonary edema Likely congestive heart failure CXR with improved opacities extubated on 10/12 and now on RA wean o2 as able Overnight on 10/13 increased o2 requirement, repeat chest XRAY noting increased pulm opacities, rocephin broadened to Zosyn for added anaerobic coverage, continue doxycycline for atypicals. Leukocytosis resolved. repeat procalcitonin elevated Repeat sputum culture NGTD diuresis as tolerated- currently on hold in setting of progressing kidney disease Pt with repeated increased oxygen requirements overnight x 2 Pulmonology consulted for further recs, appreciated -cpap use qhs as tolerated -completed course of abx PCP and pulmonology followup after discharge Acute on Chronic Kidney Disease creatinine trended up acutely to peak 2.55 before downtrending to 1.38 on discharge No known baseline avoid nephrotoxic agents- lisinopril on hold at this time, resumed by nephrology on discharge. Nephrology consulted, appreciate recs. Nephrology discharge recommendations as follows: "DX: Stage 1 nonoliguric MILLI on CKD3B, multifactorial ATN from obligate IV contrast, medications, critical illness requiring ventilatory support/urgent cardiac cath RX: at d/c > continue prior to admission metoprolol start lasix 40 mg daily today (note lower dose; order is in; this is his customary OP dose not 80 mg daily) Creat now 1.38 better than baseline but BP starting to get higher so will restart Lisinopril 10. assuming no active gout flare, start allopurinol 100 mg daily on 10/20 OTHER POST D/C CARE: -daily standing weight per HF protocols x 2 weeks <2 gm daily sodium diet -fluid limit 1.8L daily -BMP weekly with magnesium; check uric acid level after 7 days on allopurinol -titrate allopurinol up gradually to get uric acid level less than 6 -avoid colchicine & NSAIDS in CKD -work at consistent CPAP use F/U APPTS: -BMP and uric acid w/ PCP at hospital f/u -f/u w/ rheum per routine; PCP follows his CKD" Given pt's complexity, consider Nephrology followup after discharge NSTEMI vs. Type II Demand Ischemia Obstructive CAD s/p CABG (remote) s/p cardiac cath without acute thrombosis, bypass patent on 10/11 90% distal left main 100% proximal LAD 100% proximal circumflex 100% mid RCA. Distal RCA retrofills via graft to RV branch with 100% occlusion prior to PDA. Per interventional cardiology: Grafts are widely patent and no clear acute high risk disease to explain patient's presentation; Distal RCA after graft anastomosis occluded. Suspect chronic but cant rule out acute. Treated with home dapt with asa/plavix However on discharge, cardiology recommended discontinuing aspirin, as pt also on Eliquis for PAF, continuing plavix. Close Cardiology followup on discharge Acute on chronic heart failure with mildly reduced EF, 40-45% HTN likely 2/2 ischemic cardiomyopathy Cardiology consulted, undergoing diuresis-switched to oral home 80mg lasix -per nephro restart at 40mg daily resume home meds as able, consider addition spironolactone per Cardiology lisinopril 10mg resumed-currently on hold imdur 120mg daily resumed -currently on hold nifedipine 60mg bid resumed - decreased to daily Per Cardiology on the day of discharge: "...Complex 74 year old male paitent admitted with multifactorial respiratory failure, with acute hypoxic respiratory failure secondary to pneumonia and acute decompensated systolic and diastolic congestive heart failure. Course complicated by transient atrial fibrillation with rapid ventricular response and acute on chronic renal dysfunction felt to be secondary to a component of overdiuresis and rapid blood pressure changes. [id number] 6 points. Patient with longstanding hypertension with hypertensive heart disease. October 11, 2024 TTE with mildly reduced LV systolic function, EF 40 to 45%, with moderate size apical, inferior, and posterior wall motion abnormality with hypokinesis to dyskinesis of the segments, findings reflecting scarring of the inferior wall from base to apex with apical dyskinesis involving inferior wall and apical septum. Bioprosthetic aortic valve with moderate increased velocities. Grade 2 diastolic dysfunction noted along with moderately dilated left atrium, and moderate concentric LVH and noninfarcted segments. Cardiac catheterization this admission with intact grafts and severe thin [place] vessel disease. Blood pressure and heart rate controlled. Examination with mild volume overload only. [id number] on RA. Brief run of PAT noted last evening. Creatinine improved to 1.38 mg/dL. Recommendations: Gradually resume prior to arrival medications as blood pressure permits. Imdur (120 mg/day) last received on 10/13 Prior to arrival furosemide dosing was 80 mg/day (currently receiving 40 mg/day) Prior to arrival nifedipine dose was 60 mg BID (currently receiving 60 mg/day) Discontinue aspirin noting initiation of apixaban (Eliquis). Continue clopidogrel 75 mg/day Increase activity as tolerated. Outpatient Cardiology follow-up with Dr. Davey Waller et al, [facility] Cardiology..." Close cardiology Followup on discharge Bioprosthetic valve in place stable function on echo per cards Paroxysmal a fib NSR as of now Home dosing Metoprolol 100mg BID XL monitor on telemetry On Eliquis BID PCP and cardiology followup Gout Uric acid elevated at 10.8 Was started on colchicine- discontinued in setting of acute/chronic kidney disease Per nephrology: assuming no active gout flare, start allopurinol 100 mg daily on 10/20 check uric acid level after 7 days on allopurinol -titrate allopurinol up gradually to get uric acid level less than 6 -avoid colchicine & NSAIDS in CKD OA feet Pt with bilateral foot pain XRAYs ordered noting bilateral severe OA Started on capsaicin cream (pt also diabetic), also on voltaren gel PRN tylenol, oxycodone for pain Conjunctivitis erythromycin ointment Diabetes Sliding scale Hyperlipidemia On statin BPH On Flomax GERD On Protonix Notes For Next Care Provider As above Medication Changes From Visit As above Admission HPI Per Admitting Provider 74-year-old male from [facility] visiting [place] with past medical history significant for diabetes, CAD status post CABG, hypertension, GERD, BPH hyperlipidemia presents with respiratory distress and chest pain. Patient is currently status post intubation. S/p cardiac cath. 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 However with the weather improved his symptoms of shortness of breath was improving. He is also having lower EXTR edema going on for last 5 to 6 months but it is stable and he takes Lasix as per the . Patient had CABG 20 years ago and aortic valve replacement thinks with pig valve about 10 years ago. thinks patient takes Coumadin for heart problem but denies any history of A-fib. states his kidney function is monitored because of age but not sure about the kidney disease. Has back problems. Last evening as per the patient was getting very short of breath and he took nitro 3 times and because shortness of breath he started to have chest pains. And EMS was called. Per EMS his oxygen sat was 60% on arrival and patient could not tolerate BiPAP and was placed on nonrebreather mask. He was given sublingual nitro. EKG was obtained and heart alert was called. VBG showed respiratory acidosis. Chest x-ray showed pulmonary edema. As patient was not tolerating BiPAP and was tiring patient was intubated in ER. IV Lasix 80 mg were given. S/p cardiac cath and all grafts appear to be open and there is distal RCA after anastomosis possible acute versus chronic and medical management is recommended by interventional cardiology. He was was in A-fib and converted to sinus rhythm. Cardiology recommended beta-blockers when able as patient having lot of PVCs. Currently patient hemodynamically okay. Has leukocytosis, a dose of Rocephin given in the ER. Lactate is okay. Procalcitonin is negative. Initial troponin 50 [place] [id number]. Past med history as mentioned above Past surgical history. CABG. Aortic valve replacement. Prostate surgery. Social use. No smoking. No alcohol use. Family history. Father had heart surgery. Mother had dementia. Admission Exam Per Admitting Provider General- s/p intubation. Head- atraumatic Neck- no JVD Lungs- clear to auscultation mild bibasilar crackles Heart- regular rhythm; no murmur, no gallop. Abdomen- sluggish bowel sounds, soft, no distension Extremities- Lower extremity edema present, No erythema seen. Neuro- s/p intubation and sedated Discharge Exam General: Alert, oriented. No acute distress Psych: Appropriate mood and affect HEENT: NC/AT CV: RRR Resp: Breath sounds with some coarseness bilaterally, no increased effort of breathing Abdomen: Soft, nontender Extremities: edema in lower extremities bilaterally. Updated Medication List Medication Instructions Recorded Confirmed Type Plavix 75 mg PO DAILY 10/10/24 10/10/24 History Urocit-K 15 10/10/24 History atorvastatin 80 mg tablet 80 mg PO HS 10/10/24 10/10/24 History famotidine 40 mg tablet 40 mg PO DAILY 10/10/24 10/10/24 History folic acid 1 mg tablet 1 mg PO DAILY 10/10/24 10/10/24 History insulin aspart U-100 100 unit/mL 15 unit subcut DAILY 10/10/24 10/10/24 History (3 mL) subcutaneous pen (Novolog FlexPen U-100 Insulin aspart) insulin degludec 100 unit/mL (3 52 unit subcut DAILY 10/10/24 10/10/24 History mL) subcutaneous pen (Tresiba FlexTouch U-100 insulin) isosorbide mononitrate 120 mg 120 mg PO DAILY 10/10/24 10/10/24 History tablet,extended release 24 hr lisinopril 10 mg tablet 10 mg PO DAILY 10/10/24 10/10/24 History magnesium oxide 400 mg PO DAILY 10/10/24 10/10/24 History metoprolol succinate 100 mg 100 mg PO BID 10/10/24 10/10/24 History tablet,extended release 24 hr pantoprazole 40 mg tablet,delayed 40 mg PO DAILY 10/10/24 10/10/24 History release tamsulosin 0.4 mg capsule 0.4 mg PO DAILY 10/10/24 10/10/24 History apixaban 5 mg tablet (Eliquis) 5 mg PO BID #60 tabs 10/18/24 Rx clopidogrel 75 mg tablet 75 mg PO DAILY #30 tabs 10/18/24 Rx erythromycin 5 mg/gram (0.5 %) eye 1 applic ophthalmic (eye) QID #3.5 10/18/24 Rx ointment grams furosemide 40 mg tablet 40 mg PO QAM #30 tabs 10/18/24 Rx melatonin 3 mg tablet 6 mg (2 x 3 mg) PO HS PRN sleep 10/18/24 Rx #60 tabs nifedipine 60 mg tablet,extended 60 mg PO DAILY #0 tabs 10/18/24 10/10/24 Rx release Hospital Stay Data Consultations 10/10/24 23:27 ED Decision to Admit Stat 10/11/24 00:17 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 10/11/24 08:00 Consult Cardiology Routine 10/14/24 08:43 Consult Nephrology Routine 10/15/24 16:55 Consult Pulmonology Routine Procedures Performed Operation Date: 10/10/24 22:50 Actual Procedures p Cineradiography w/Routine Exam - John Lisa MD s Cath, Cors with Grafts (no LV) - John Lisa MD Diagnostic Imagining Performed 10/10/24 22:42 CL Cath Imgs for PACS use only Stat 10/11/24 01:01 CT angio chest PE protocol Stat 10/11/24 01:08 CT Abd and Pelvis [CT abdomen pelvis wo/w con] Stat Chest X-Ray 10/10/24 22:13 Exam(s): XR CXR 1 VIEW EXAM: XR Chest, 1 View CLINICAL HISTORY: Reason for exam: respiratory distress. TECHNIQUE: Frontal view of the chest. COMPARISON: No relevant prior studies available. FINDINGS: Lungs: There are extensive bilateral infiltrates.. Pleural space: There is a small left pleural effusion.. No pneumothorax. Heart: The patient is status post midline sternotomy. The heart is top normal in size.. Mediastinum: There is mild uncoiling of thoracic aorta.. Bones/joints: There are degenerative changes in the spine.. IMPRESSION: There are extensive bilateral infiltrates with a small left pleural effusion.. Electronically signed by: Reed Longoria MD 10/11/24 00:19 AM Chest X-Ray 10/10/24 22:40 Exam(s): XR CXR 1 VIEW EXAM: XR Chest, 1 View CLINICAL HISTORY: Reason for exam: Post Intubation. TECHNIQUE: Frontal view of the chest. COMPARISON: Earlier the same date. FINDINGS: An endotracheal tube is noted with its tip 8 cm above the level of the blossom. A nasogastric tube is noted to cross the diaphragm. Its tip is not visualized on this exam Lungs: There are extensive bilateral infiltrates.. Pleural space: There is a small left pleural effusion.. No pneumothorax. Heart: The patient is status post midline sternotomy. The heart is top normal in size.. Mediastinum: There is mild uncoiling of thoracic aorta.. Bones/joints: There are degenerative changes in the spine.. IMPRESSION: There are extensive bilateral infiltrates with a small left pleural effusion. This appears similar to previous exam. Electronically signed by: Reed Longoria MD 10/11/24 00:21 AM Chest X-Ray 10/11/24 00:25 EXAM: XR chest 1V portable CLINICAL HISTORY: Evaluation of Endotracheal tube and lung ruvalcaba. TECHNIQUE: An X-ray image of the chest is obtained in Anteroposterior (AP) projection. COMPARISON: No prior studies are available for comparison. FINDINGS: ETT was applied with its tip positioned 7.4 cm away from the blossom. NGT was applied with its tip seen just crossing the gastroesophageal junction. Another tube was noted in the left middle zone of the chest field, with its tip fairly observed in the mediastinum. Pulmonary Parenchyma: Lungs are showing bilateral, mainly central opacities (batwing sign) likely related to pulmonary edema. The underlying infection could not be ruled out. No pulmonary nodules are identified. No evidence of pleural effusion or pleural thickening. Heart and Mediastinum: The heart size is enlarged. No mediastinal widening or masses. No hilar or mediastinal lymphadenopathy. Bony Thorax: The bony thorax appears intact without fractures or deformities. Soft Tissues: Sternotomy wiers applied. Soft tissues overlying the chest wall are unremarkable. IMPRESSION: 1. The endotracheal tube was applied with its tip positioned 7.4 cm away from the blossom. 2. Nasogastric Tube was applied with its tip seen just crossing the gastroesophageal junction. 3. Another tube was noted in the left middle zone of the chest field, with its tip fairly observed in the mediastinum. 4. The lungs show bilateral, mainly central opacities (batwing sign), likely related to pulmonary edema. An underlying infection could not be ruled out. 5. Further clinical and laboratory correlation, as well as follow-up, is recommended. Electronically signed by Juan Carlos Mckoy 10-11-2024 01:26 AM Chest CTA 10/11/24 01:01 EXAM: CT angio chest PE protocol CLINICAL HISTORY: PE TECHNIQUE: Contiguous axial images were obtained from the neck base through the upper abdomen following intravenous administration of iodinated contrast material. Angiographic images were processed, 3D MIP images were acquired for interpretation. If IV contrast material had not been administered, the likelihood of detecting abnormalities relevant to the patient's condition would have been substantially decreased. Coronal and sagittal 3-D MIPs were likewise performed and indicated to increase the sensitivity of detecting diffuse clinically relevant pathology. CT scan was performed according to ALARA (as low as reasonably achievable). COMPARISON: None. FINDINGS: Endotracheal tube noted in situ. Nasogastric tube noted in-situ. Sternal sutures are seen. Mild to moderate bilateral pleural effusion is noted causing compression atelectasis of underlying lung parenchyma, more on right side. Multiple patchy areas of consolidations, ground-glass densities with superimposed interstitial thickening is noted involving bilateral lung parenchyma, predominantly lower lobes. Predominant central, perihilar distribution of the consolidation is noted. Atherosclerotic calcifications are noted involving aorta and its branches, coronary arteries. The central airways are patent. Hypodense intraluminal content in main bronchi in dependent aspect. The heart is normal in size. No pericardial effusion is identified. Aorta, and pulmonary arteries are of normal size and configuration. No axillary or mediastinal adenopathy is identified. No aggressive appearing osseous lesions are identified. IMPRESSION: 1. No evidence of pulmonary embolism. 2. Mild to moderate bilateral pleural effusion is noted causing compression atelectasis of underlying lung parenchyma, more on right side. 3. Multiple patchy areas of consolidations, ground-glass densities with superimposed interstitial thickening are noted involving bilateral lung parenchyma, predominantly lower lobes. Predominant central, perihilar distribution of the consolidations is noted. Possibility of aspirated related changes keeping in view the hypodense intraluminal content in main bronchi. Possibility of pulmonary edema needs consideration. Suggested clinical correlation/follow up. Electronically signed by Viktor Lugo 10-11-2024 03:11 AM Abdomen/Pelvis CT 10/11/24 01:08 EXAM: CT abdomen pelvis wo/w con CLINICAL HISTORY: Eval for infective or mass. TECHNIQUE: Contrast-enhanced CT of the abdomen and pelvis was performed, with the following protocol: axial images with, and reconstructed coronal and sagittal images. Intravenous contrast was administered. One of the following dose reduction techniques was utilized for this exam: Automated exposure control, adjustment of the mA and/or kV according to patient size, and use of iterative reconstruction. COMPARISON: None. FINDINGS: Abdomen: Liver: Is mildly enlarged in size measures 17, shape, and density. No focal lesions, cysts, or masses were identified. Hepatic vasculature and biliary ducts are unremarkable. Gallbladder and Biliary System: Surgically removed with surgical clips seen in the gall bladder bed. The common bile duct is normal in caliber without dilation. Pancreas: The pancreatic head, body, and tail are visualized and appear normal in size and density. No pancreatic masses or calcifications were noted. The pancreatic duct is not dilated. Spleen: Is enlarged in size measures 14.5 cm with normal shape and density. No splenic lesions or masses were identified. Appendix: The appendix is not well visualized. Kidneys and Adrenal Glands: Both kidneys are surrounding with minimal perinephric fat stranding, which may be a non-specific and normal finding with age. Both kidneys are normal in size, shape, and position. Cortical thickness is within normal limits. Tiny renal calculi measures about 2 mm seen in both renal pelvis. No hydronephrosis. Adrenal glands are unremarkable with no evidence of masses or hyperplasia. Left renal upper pole simple cyst measures about 2 cm in diameter. Pelvis: Urinary Bladder: Is catheterized. No intraluminal lesions identified. Small left inguinal hernia containing fat. Prostate: Normal in size and contour. No focal lesions or masses identified. Seminal Vesicles: Normal in size and appearance. No abnormalities noted. Rectum and Sigmoid Colon: Normal wall thickness and no evidence of mass. Peritoneal and Retroperitoneal Structures: Trace of intraperitoneal free fluid was seen in the subhepatic and right paracolic gutter. No lymphadenopathy was noted. Advanced atherosclerotic intimal calcification of the abdominal aort and its main branches. Small umbilical hernia containing fat. Bowel: NG tube is seen with its tip in the stomach. The visualized bowel loops are normal in caliber and appearance. No evidence of bowel obstruction or wall thickening. Bones and Soft Tissues: Marked spondylodegenerative changes of the lumber spine with multilevel disc space narrowing. Minimal anterolisthesis of L4 over L5 Minimal retrolisthesis of L2 over L3 Pelvic bones and soft tissues are unremarkable. No fractures or abnormal masses were identified. lower deangelo through chest recelaed bilateral moderate pleural effusion with subsegmental lung collapse. Bilateral scattered diffuse areas of airspace filling opacity involving both lungs. IMPRESSION: 1. Mild hepatomegaly for correlation with ultrasound and LFT. 2. Mild splenomegaly. 3. Trace of right subhepatic and right paracolic gutter free fluid. (ascites) 4. Bilateral moderate plural effusion with subsegmental lung collapse associated with bilateral scattered areas of airspace filling opacity denoting an ongoing infectious process, please correlate with CT chest findings. 5. Small left inguinal and umbilical hernia containing fat. 6. Bilateral tiny right renal stone 2 mm. Electronically signed by Juan Carlos Mckoy 10-11-2024 03:14 AM Chest X-Ray 10/12/24 06:00 EXAM: XR chest 1V portable CLINICAL HISTORY: eval tubes/lines/lung ruvalcaba TECHNIQUE: An X-ray image of the chest is obtained in AP projection. 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 FINDINGS: Interval stable, endotracheal tube appears to be in the high position, lies approximately 7.6 cm above the blossom. NG tube seen, reaching left infra-diaphragmatic Pulmonary parenchyma: Interval regressed, bilateral, few ill-defined perihilar and lower zones opacities seen. No evidence of pleural effusion or pleural thickening. The left mid chest tube seen in the previous imaging dated 10/10/2024 is not visualized, a linear chest tube shadow seen overlying the left hemithorax. Heart and Mediastinum: Heart size and shape are normal. No mediastinal widening or masses. No hilar or mediastinal lymphadenopathy. Bony Thorax: Bony thorax appears intact without fractures or deformities. Sternotomy sutures seen in situ. Soft Tissues: Soft tissues overlying the chest wall are unremarkable. IMPRESSION: 1. An endotracheal tube seen which is approximately 7.6 cm above the blossom. (unchanged). 2. NG tube seen, left infradiaphragmatic. (unchanged). 3. Interval regressed few bilateral ill-defined perihilar and lower zone opacities. possibly resolving pulmonary edema. 4. Comparing the previous x-ray dated 10/10/2024 there is marked interval regression in the bilateral pulmonary opacities. Electronically signed by Juan Carlos Mckoy 10-12-2024 07:53 AM Foot X-Ray 10/13/24 10:35 XR foot LT 2V CLINICAL HISTORY: left foot pain COMPARISON: None FINDINGS: 2 views of the left foot demonstrate mild hallux valgus with degenerative changes at the first tarsometatarsal joint and first metatarsophalangeal joint of moderate severity. There are also changes of os teoarthritis involving the fifth metatarsophalangeal joint and the distal interphalangeal joints of all the digits. Patient has a cornuate navicular. There is a prominent os perineum. Arterial calcifications are noted. Surgical clips are identified at distal aspect of the lower leg. IMPRESSION: Chronic changes as described. No acute findings ACT 112: Negative or not required by law. Electronically signed by: Sangeetha Spivey M.D. 10/13/2024 11:27 AM Foot X-Ray 10/13/24 10:35 XR foot RT 2V CLINICAL HISTORY: right foot pain COMPARISON: None FINDINGS: 2 views of the right foot demonstrate osteoarthritis at the first tarsometatarsal joint and the first metatarsophalangeal joint and the first interphalangeal joint of the great toe. These changes are moderate severity. There is mild osteoarthritis of the DIP joints of the remaining toes. The scattered osteoarthritic change in the midfoot with dorsal osteophytes talonavicular joint. There is a cornuate navicular. Small enthesophytes are present on the calcaneus. Arterial calcifications are noted. IMPRESSION: Chronic changes as described. No acute process. ACT 112: Negative or not required by law. Electronically signed by: Sangeetha Spivey M.D. 10/13/2024 11:35 AM Chest X-Ray 10/14/24 10:45 XR chest 1V portable CLINICAL HISTORY: Increased oxygen demands COMPARISON STUDY: 10/12/2024 FINDINGS: The patient has been extubated and the nasogastric tube is been removed. Since the prior study, patchy bilateral airspace opacities have progr essed. There is slight bilateral blunting of the costophrenic angles. IMPRESSION: Patchy bibasilar airspace opacities have progressed. ACT 112: Negative or not required by law. Electronically signed by: Sangeetha Spivey M.D. 10/14/2024 11:14 AM Chest X-Ray 10/15/24 01:11 EXAM: XR chest 1V portable CLINICAL HISTORY: Low O2. TECHNIQUE: An X-ray image of the chest is obtained in AP projection. COMPARISON: Prior study dated 10/12/2024. FINDINGS: Interval removal of the endotracheal and nasogastric tubes. Pulmonary parenchyma: Unchanged bilateral, ill-defined perihilar and lower zones opacities. No evidence of pleural effusion or pleural thickening. Heart and Mediastinum: Heart size and shape are normal. No mediastinal widening or masses. No hilar or mediastinal lymphadenopathy. Bony Thorax: Bony thorax appears intact without fractures or deformities. Sternotomy sutures are seen in situ. Soft Tissues: Soft tissues overlying the chest wall are unremarkable. IMPRESSION: 1. No significant interval changes regarding the previously noted bilateral ill-defined perihilar and lower zone opacities. 2. No evidence of newly developed abnormalities. 3. Interval removal of the endotracheal and nasogastric tubes. Electronically signed by Juan Carlos Mckoy 10-15-2024 03:17 AM Chest X-Ray 10/16/24 07:00 EXAM: XR chest 1V portable CLINICAL HISTORY: F/u TECHNIQUE: X-ray image of the chest obtained in AP portable projection. COMPARISON: Prior X-ray dated 10/15/2024 for comparison. FINDINGS: Pulmonary Parenchyma: Unchanged prominent bilateral parahilar markings and ill-defined opacities in lower zones. No evidence of pleural effusion or pleural thickening. Heart and Mediastinum: Cardiomegaly. Surgical clips in the mediastinum. No mediastinal widening or masses. No hilar or mediastinal lymphadenopathy. Bony Thorax: Sternotomy sutures. Bony thorax appears intact without fractures or deformities. Soft Tissues: Soft tissues overlying the chest wall are unremarkable. IMPRESSION: 1. Unchanged prominent bilateral parahilar markings and ill defined opacities in lower zones. Clinical and lab correlation is advised. 2. Cardiomegaly. 3. No significant interval changes. Electronically signed by Juan Carlos Mckoy 10-16-2024 08:40 AM Pending Results Patient Have Any Pending Studies at Discharge: No Discharge Instructions Given to Patient (Per Discharging Provider) Mr. Gonzalez, You are being discharged home per your request. You were seen by a ems helicopter pilot, club waiter/waitress and core cutter and reamer. They recommended the following medication changes: -taking apixaban/Eliquis 5mg twice a day -discontinuing aspirin 81mg while on Eliquis 5mg twice a day and your home plavix (home plavix prescription renewed for you) -decreasing your home lasix dose to 40mg daily at this time (was 80mg before) -decreasing your nifedipine dose to 60mg daily at this time (was twice a day before) -holding the medication Imdur until followup with Cardiology as an outpatient. It is very likely that your medications will need further adjustment based on your progressing clinical status. You will need close followup with not only your primary care provider but also cardiology, nephrology and pulmonology after discharge. We determined that you do not need oxygen for home use at this time. You will need sleep studies done as an outpatient. We renewed medications for your eyes (the erythromycin ointment) and to help you sleep (melatonin). Should you need the Ambien that you used while in the hospital, please followup with your primary care provider for a prescription. Please keep close followup with your intermediate project manager regarding your arthritis and gout. Nephrology recommends starting prophylactic gout medication soon once your acute illnesses have improved. Again, please keep close follow up with your primary care provider and specialists after discharge. Please do not hesitate to come back to the emergency room if your symptoms worsen or return. It was a pleasure taking care of you while you were here. Total Time Total Time Spent Total Time Spent (In Minutes): 60
[2024-10-18 14:36] VITALS: BP 124/67
== END 2024-10-18 15:26 | disposition home or self-care (01) | DRG 208 ==
LOC: ED 21:59 → 1E 23:39 → OR 23:39 → SUATTDRO 23:40 → 1E 23:40 → 2S 10-13 10:38
PROC: CLB.CCG (2024-10-10 22:50)